=== PATIENT | female | born 1940 | race Caucasian/White ===

== ENCOUNTER 2019-01-02 13:37 | Inpatient (IN) ==
--- NOTE | 2019-01-02 13:58 | Emergency Department Note ---
Weakness HPI - General Chief complaint: Weakness Stated complaint: Shoulder pain, Change in LOC Time Seen by Provider: 01/02/19 13:57 Source: patient, family Mode of arrival: ambulatory - History of Present Illness HPI Narrative: 78-year-old female presenting with a chief complaint of some concern by her for altered mental status. Patient seen recently and evaluated however was concerned that she may be having a stroke or something like that and thus presented for additional evaluation. Patient not really reporting significant problems aside from pain to the back. - Related Data Previous Rx's Medication Instructions Recorded Cyclobenzaprine [Flexeril] 10 mg PO TID #20 tab 01/01/19 Allergies Allergy/AdvReac Type Severity Reaction Status Date / Time prednisolone Allergy Intermediate Hypertensio Verified 01/02/19 13:46 n Sulfa (Sulfonamide Allergy Intermediate Hives Verified 01/02/19 13:46 Antibiotics) Review of Systems All systems ED: reviewed and negative except as stated. Past Medical History - Past Medical History [facility] Narrative: All Active Problems Thoracic back pain (Acute) Muscle spasm (Acute) Medical history: Reports: no medical history - Social History smoking status: Never smoker Physical Exam Limitations: no limitations General appearance: lethargic, sleepy Head: atraumatic, normocephalic Eye: Absent: scleral icterus, conjunctival injection ENT: Present: normal oropharynx, mucous membranes moist Neck: Present: trachea midline. Absent: lymphadenopathy, thyromegaly Chest: Present: symmetric chest wall rise Respiratory: Present: normal lung sounds bilaterally. Absent: respiratory distress, wheezes, stridor, accessory muscle use, prolonged expiratory phase Cardiovascular: Present: regular rate, normal rhythm. Absent: systolic murmur, diastolic murmur Abdominal: Present: soft. Absent: distention, tenderness, guarding, rebound, rigidity, organomegaly, mass Extremities: Absent: pedal edema, pretibial edema, calf tenderness Back: Absent: CVA tenderness (R), CVA tenderness (L), spinous process tenderness Neurological: Present: alert, oriented X3 Psychiatric: Present: normal affect, normal mood Skin: Present: warm, dry Course Course Narrative: The differential diagnosis in this case include stroke, ICH, subarachnoid bleeding, spinal cord injury, GBS, tick paralysis, myasthenia gravis, botulism, alcohol myopathy, myositis, electrolyte disorders, thyroid disease, sepsis, ACS, carbon monoxide poisoning, dehydration, anemia, presyncope, as well as medication reaction. A combination of history/physical exam/labs were used to discern the most likely etiology. Patient noted to be hypertensive in the emergency department with systolic blood pressure around 200 however patient refused treatment for this issue. Patient was offered labetalol instructed in its value and how long it would be useful for her symptoms and issues and she declined. She was significant improvement in her mental status after IV fluids was provided. Secondary to elevated white blood cell count, abnormal urinalysis and altered mental status my medical opinion is patient has sepsis with urinary source, hypertensive emergency is also in the differential as her blood pressure is elevated and her mental status is altered however after the fluids her blood pressure was still elevated and her mental status was clearing so I am leaning towards sepsis with urinary source. Discussed the case with hospital ist Dr. Addison and the consensus medical opinion is to admit the patient. Vital Signs Temperature 98.0 F 01/02/19 13:41 Pulse Rate 76 01/02/19 13:41 Respiratory Rate 30 H 01/02/19 13:41 Blood Pressure 208/87 01/02/19 13:41 Pulse Oximetry (%) 96 01/02/19 13:41 Temperature 98.0 F 01/02/19 13:46 Pulse Rate 76 01/02/19 18:02 Respiratory Rate 19 01/02/19 17:32 Blood Pressure 136/54 01/02/19 18:02 Pulse Oximetry (%) 93 01/02/19 17:47 Weakness - Lab Data Result diagrams: 01/02/19 14:15 01/02/19 14:15 Lab Results 01/02/19 01/02/19 01/02/19 Range/Units 14:15 14:15 14:15 WBC 20.2 H (4.5-11.0) K/mcL RBC 4.94 (4.00-5.20) M/mcL Hgb 14.1 (12.0-15.0) g/dL Hct 42.4 (36.0-48.0) % MCV 85.7 (80.0-100.0) fL MCH 28.5 (26.0-34.0) pg MCHC 33.3 (31.0-36.0) g/dL RDW 13.2 (11.5-14.5) % Plt Count 201 (140-440) K/mcL MPV 9.8 (7.4-10.4) fL Gran % 89.0 H (38.0-78.0) % Lymph % (Auto) 3.2 L (15.5-49.0) % [place] % (Auto) 7.8 (1.0-12.0) % Eos % (Auto) 0 (0.0-7.0) % Baso % (Auto) 0 (0.0-2.0) % Gran # 18.0 H (1.8-8.0) K/mcL Lymph # (Auto) 0.6 L (1.5-4.8) K/mcL [place] # (Auto) 1.6 H (0.1-0.9) K/mcL Eos # (Auto) 0 (0.0-0.7) K/mcL Baso # (Auto) 0 (0.0-0.3) K/mcL Differential Comment Sodium 131 L (133-145) mmol/L Potassium 4.0 (3.3-5.1) mmol/L Chloride 97 (96-108) mmol/L Carbon Dioxide 22 (22-30) mmol/L Anion Gap 12.0 (8-16) BUN 12 (8-23) mg/dl Creatinine 0.8 (0.6-1.1) mg/dl GFR Calculation 72 Glucose 146 H (70-105) mg/dL Calcium 9.3 (8.6-10.4) mg/dl Total Bilirubin 0.7 (0.0-1.0) mg/dL AST 20 (0-37) U/l ALT 15 (0-40) U/l Alkaline Phosphatase 82 (39-117) U/L Troponin T < 0.01 (0-0.03) ng/ml Total Protein 8.7 H (5.9-8.4) gm/dL Albumin 3.8 (3.2-5.2) gm/dL Globulin 4.9 H (2.2-3.7) gm/dL Albumin/Globulin Ratio 0.8 L (1.0-2.3) Urine Color Urine Appearance Urine pH (5.0-9.0) Ur Specific [place] (1.000-1.035) Urine Protein (NEG) mg/dL Urine Glucose (UA) (NEG) mg/dL Urine Ketones (NEG) mg/dL Urine Occult Blood (<0.03) mg/dL Urine Nitrate (NEG) Urine Bilirubin (NEG) mg/dL Urine Urobilinogen (NEG) mg/dL Ur Leukocyte Esterase (NEG) /uL Urine RBC (0-1) /hpf Urine WBC (0-4) /hpf Ur Squamous Epith Cells (0-4) /hpf Ur Transition Epith Cell (0-2) /hpf Urine Bacteria (0) /hpf Hyaline Casts (0-2) /lpf Urine Mucus (0) /hpf Ur Culture Indicated? 01/02/19 Range/Units 16:40 WBC (4.5-11.0) K/mcL RBC (4.00-5.20) M/mcL Hgb (12.0-15.0) g/dL Hct (36.0-48.0) % MCV (80.0-100.0) fL MCH (26.0-34.0) pg MCHC (31.0-36.0) g/dL RDW (11.5-14.5) % Plt Count (140-440) K/mcL MPV (7.4-10.4) fL Gran % (38.0-78.0) % Lymph % (Auto) (15.5-49.0) % [place] % (Auto) (1.0-12.0) % Eos % (Auto) (0.0-7.0) % Baso % (Auto) (0.0-2.0) % Gran # (1.8-8.0) K/mcL Lymph # (Auto) (1.5-4.8) K/mcL [place] # (Auto) (0.1-0.9) K/mcL Eos # (Auto) (0.0-0.7) K/mcL Baso # (Auto) (0.0-0.3) K/mcL Differential Comment Sodium (133-145) mmol/L Potassium (3.3-5.1) mmol/L Chloride (96-108) mmol/L Carbon Dioxide (22-30) mmol/L Anion Gap (8-16) BUN (8-23) mg/dl Creatinine (0.6-1.1) mg/dl GFR Calculation Glucose (70-105) mg/dL Calcium (8.6-10.4) mg/dl Total Bilirubin (0.0-1.0) mg/dL AST (0-37) U/l ALT (0-40) U/l Alkaline Phosphatase (39-117) U/L Troponin T (0-0.03) ng/ml Total Protein (5.9-8.4) gm/dL Albumin (3.2-5.2) gm/dL Globulin (2.2-3.7) gm/dL Albumin/Globulin Ratio (1.0-2.3) Urine Color Yellow Urine Appearance Clear Urine pH 6.0 (5.0-9.0) Ur Specific [place] 1.017 (1.000-1.035) Urine Protein 100 A (NEG) mg/dL Urine Glucose (UA) Negative (NEG) mg/dL Urine Ketones 5/tr A (NEG) mg/dL Urine Occult Blood 0.03 A (<0.03) mg/dL Urine Nitrate Neg (NEG) Urine Bilirubin Neg (NEG) mg/dL Urine Urobilinogen Neg (NEG) mg/dL Ur Leukocyte Esterase 75 A (NEG) /uL Urine RBC 3 H (0-1) /hpf Urine WBC 53 H (0-4) /hpf Ur Squamous Epith Cells < 1 (0-4) /hpf Ur Transition Epith Cell < 1 (0-2) /hpf Urine Bacteria Few A (0) /hpf Hyaline Casts 2 (0-2) /lpf Urine Mucus Few (0) /hpf Ur Culture Indicated? Yes - EKG Data EKG attestation: Yes I reviewed and interpreted this EKG. EKG shows normal: sinus rhythm Rate: normal Rhythm: NSR [place]/QRS: LBBB P waves: normal ST segment elevation in: None ST segment depression in: None Q waves: None QTc: normal Interpretation: normal EKG Critical Care Time Critical Care Time: Yes Total Critical Care Time: 55 (elevated BP and sepsis) Attestation: This critical care time was direct patient care exclusive of other procedures. Disposition Pt seen by [facility]/PA only: No Clinical Impression: Hypertensive emergency Sepsis Qualifiers: Sepsis type: Escherichia coli Sepsis acute organ dysfunction status: without acute organ dysfunction Qualified Code(s): A41.51 - Sepsis due to Escherichia coli [E. coli] Disposition: Xfer As Inpt ([facility]) Condition: Fair Referrals: No,PCP [Primary Care Provider] -
[2019-01-02] MEDS ORDERED: LABETALOL 5 MG/ML ML IV ONE (14:19)
[2019-01-02 15:00] LABS: Basophils # (Auto) 0 K/mcL (0.0-0.3); Basophils % (Auto) 0 % (0.0-2.0); Eosinophils # (Auto) 0 K/mcL (0.0-0.7); Eosinophils % (Auto) 0 % (0.0-7.0); Hematocrit 42.4 % (36.0-48.0); Hemoglobin 14.1 g/dL (12.0-15.0); Lymphocytes # (Auto) 0.6 K/mcL (1.5-4.8); Lymphocytes % (Auto) 3.2 % (15.5-49.0); Mean Cell Volume 85.7 fL (80.0-100.0); Mean Corpuscular HGB Conc 33.3 g/dL (31.0-36.0); Mean Platelet Volume 9.8 fL (7.4-10.4); Monocytes # (Auto) 1.6 K/mcL (0.1-0.9); Monocytes % (Auto) 7.8 % (1.0-12.0); Platelet Count 201 K/mcL (140-440); RBC 4.94 M/mcL (4.00-5.20); Red Cell Distribution Width 13.2 % (11.5-14.5); WBC 20.2 K/mcL (4.5-11.0)
--- NOTE | 2019-01-02 15:08 | XRay Report ---
HISTORY: Chest pain and dyspnea FINDINGS: The heart is mildly enlarged. There are prominent increased interstitial lung markings bilaterally, left greater than right. This is most apparent in the perihilar region on the left side. The lung volumes are normal. There is no consolidating infiltrate, mass or pleural effusion. Right humeral head is deformed due to an old healed fracture. No prior study is available for comparison. IMPRESSION: Cardiomegaly Generalized interstitial lung disease. This could be due to congestive heart failure or a generalized nonspecific inflammatory reaction Interpreted and Authenticated by: Jameel Glynn 01/02/19
[2019-01-02] MEDS ORDERED: 0.9 % SODIUM CHLORIDE 2,000 ML IV ONE (15:25)
[2019-01-02] MEDS ORDERED: cefTRIAXone 1 GM VIAL IV ONE ×2 (15:28→18:12)
[2019-01-02 15:40] LABS: ALT/SGPT 15 U/l (0-40); AST/SGOT 20 U/l (0-37); Albumin 3.8 gm/dL (3.2-5.2); Albumin/Globulin Ratio 0.8 (1.0-2.3); Alkaline Phosphatase 82 U/L (39-117); Bilirubin,Total 0.7 mg/dL (0.0-1.0); Blood Urea Nitrogen 12 mg/dl (8-23); Calcium 9.3 mg/dl (8.6-10.4); Carbon Dioxide 22 mmol/L (22-30); Chloride 97 mmol/L (96-108); Globulin 4.9 gm/dL (2.2-3.7); Glomerular Filtration Rate 72; Glucose 146 mg/dL (70-105)
--- NOTE | 2019-01-02 16:12 | Cat Scan Report ---
Reason: Stroke symptoms TECHNIQUE: The brain was imaged without contrast at 2.5 mm intervals. Radiation exposure was limited using dose reduction technology. FINDINGS: There are a few small lacunar infarcts with encephalomalacia. One is located inferiorly in the left putamen and measures approximately 3 x 6 mm. There is another in the mercedes radiata adjacent to the head of the left caudate nucleus which measures approximately 3 x 4 mm. To the left of midline in the superior cerebellar vermis there is an infarct which measures 6 mm. No acute infarct is detected. There is no hemorrhage, edema or mass effect. Patient has mild generalized cerebral atrophy. The ventricles are normal in size. No abnormal extra-axial fluid collection is present. No prior studies available for comparison. 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 No evidence of an acute infarct Dr. Vigil was called with the results Interpreted and Authenticated by: Jameel Glynn 01/02/19
[2019-01-02 18:01] LABS: Appearance,Urine CLEAR; Bacteria,Urine FEW /hpf (0); Bilirubin,Urine NEG (NEG); Color,Urine YELLOW; Culture Indicated,Urine YES; Glucose,Urine (UA) NEGATIVE (NEG); Ketones,Urine 5/TR mg/dL (NEG); Leukocyte Esterase,Urine 75 /uL (NEG); Mucus,Urine FEW /hpf (0); Nitrate,Urine NEG (NEG); Protein,Urine 100 mg/dL (NEG); Specific Gravity,Urine 1.017 (1.000-1.035); Urine Blood 0.03 mg/dL (<0.03); Urine Hyaline Cast 2 /lpf (0-2); Urine RBC 3 /hpf (0-1); Urine Squamous Epithelial Cell < 1 /hpf (0-4); Urine Transitional Epi Cells < 1 /hpf (0-2); Urine WBC 53 /hpf (0-4); Urobilinogen,Urine NEG (NEG)
--- NOTE | 2019-01-02 19:18 | Internal Med History&Physical ---
Medical - H&P: [facility] Patient information: Note initiated : 01/02/19 at 7:16 pm Service Date, if different from initiated Date: [] Patient: Fiorella Leon a 78 y/o F admitted on for Shoulder pain, Change in LOC. Chief Complaint: Confusion History of present illness: Ms. Leon is a 78 year old F who presents to the emergency department brought in by her with concerns of confusion. Apparently she had not been doing well for the last few days, however was just seen here yesterday with main complaint of left shoulder pain and was diagnosed with muscle spasm. She was prescribed Flexeril, it is unclear if she is taking many of those tablets. She reports back to the ED with her quite confused. Apparently she did not follow much conversation and could not give much history upon arrival though did improve after fluids. Evaluation in the emergency department shows evidence of urinary tract infection with sepsis, white count of 20 and encephalopathy. Location: Systemic; timing: Onset 1 to 2 days ago; severity: Moderate; associated symptoms: As in review of systems. Patient felt feverish last evening, she felt chilled but did not have shaking chills. She occasionally has a headache, but none currently. No neck pain or stiffness. She had some mild nausea this morning but no emesis. She is had no abdominal pain. She has had no diarrhea. She has had some dysuria. In the emergency department, the patient is also noted to be extremely hypertensive with systolic blood pressures in the 200s and diastolics in the 110's. Patient was trying to describe that she had had a hypertensive reaction to a treatment for her glaucoma but is still little confused and cannot really provide details. According to her , her blood pressure may have been high for a while but she has never been treated for hypertension. She is now being admitted for treatment of sepsis from urinary source. All systems: reviewed and no additional remarkable complaints except as stated Medical - H&P: PMH Medical history: Glaucoma Eczema History of elevated blood pressure Surgical history: Shoulder surgery Pertinent family history: Mother had CAD, an uncle of [place] Social history: Lives with her ; does not smoke or drink alcohol. Does not have a regular physician, except for eye appointments. Medical - H&P: Meds Home Medications Medication Instructions Recorded Confirmed Type Cyclobenzaprine [Flexeril] 10 mg PO TID #20 tab 01/01/19 Rx Latanoprost/Pf [Latanoprost 0.005% 1 gtt OU HS 01/03/19 01/03/19 History Eye Drop] RX: Ketorolac Tromethamine 1 gtt OU BID 01/03/19 01/03/19 History Timolol 0.5% Ophth Drops [Timoptic 1 gtt OU BID 01/03/19 01/03/19 History 0.5% Ophth Drops] Allergies Allergy/AdvReac Type Severity Reaction Status Date / Time prednisolone Allergy Intermediate Hypertensio Verified 01/02/19 13:46 n Sulfa (Sulfonamide Allergy Intermediate Hives Verified 01/02/19 13:46 Antibiotics) Medical - H&P: Exam - Constitutional Vitals: Temp Pulse Resp BP Pulse Ox 98.0 F 93 H 18 218/181 96 01/02/19 13:46 01/02/19 18:32 01/02/19 18:32 01/02/19 19:01 01/02/19 18:32 Exam: GENERAL: Alert, mildly disoriented, in no acute distress. HEENT: Atraumatic. PERRL at 3 mm, conjunctiva clear, no scleral icterus. Hearing grossly intact. Oropharynx with moist mucous membranes, no lip or gum lesions, no pharyngeal erythema or exudate. Tongue midline. NECK: Supple without meningismus, no thyromegaly RESPIRATORY: Breath sounds clear bilaterally without wheezes or rhonchi. Respiratory effort is unlabored. CARDIOVASCULAR: Regular rate and rhythm, no murmur gallop or rub. No peripheral edema. Carotid pulses 2+ without bruit. GI: Abdomen soft, nontender, no guarding or rebound. Bowel sounds are present. No hepatosplenomegaly. MUSCULOSKELETAL: No joint erythema or swelling, normal range of motion in all extremities. SKIN: Warm, dry. Scattered dry patches with excoriations on the lower extremities. Skin turgor normal. NEUROLOGIC: Cranial nerves II through XII grossly intact. Muscle mass normal. There is mild generalized weakness. Sensation intact to light touch bila terally. Deep tendon reflexes 2+ at the biceps and patella. PSYCHIATRIC: Alert, oriented to person, place and situation, recall is slow at times. Medical - H&P: Reslt - Labs CBC & Chem 7: 01/03/19 04:09 01/03/19 04:09 Labs: Short CBC 01/02/19 Range/Units 14:15 WBC 20.2 H (4.5-11.0) K/mcL Hgb 14.1 (12.0-15.0) g/dL Hct 42.4 (36.0-48.0) % Plt Count 201 (140-440) K/mcL BMP 01/02/19 14:15 Sodium 131 L Potassium 4.0 Chloride 97 Carbon Dioxide 22 BUN 12 Creatinine 0.8 Glucose 146 H Calcium 9.3 Cardiac Enzymes 01/02/19 Range/Units 14:15 Troponin T < 0.01 (0-0.03) ng/ml Liver Function 01/02/19 Range/Units 14:15 Total Bilirubin 0.7 (0.0-1.0) mg/dL AST 20 (0-37) U/l ALT 15 (0-40) U/l Alkaline Phosphatase 82 (39-117) U/L Albumin 3.8 (3.2-5.2) gm/dL Urine 01/02/19 Range/Units 16:40 Urine Color Yellow Urine Appearance Clear Urine pH 6.0 (5.0-9.0) Ur Specific [place] 1.017 (1.000-1.035) Urine Protein 100 A (NEG) mg/dL Urine Glucose (UA) Negative (NEG) mg/dL - Imaging and Cardiology CT scan - head Additional comments: IMPRESSION: 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 No evidence of an acute infarct Chest x-ray Status: image reviewed by me Additional comments: MPRESSION: Cardiomegaly Generalized interstitial lung disease. This could be due to congestive heart failure or a generalized nonspecific inflammatory reaction Medical - H&P: A/P (1) Sepsis Current visit: Yes Status: Acute (2) Acute cystitis Current visit: Yes Status: Acute (3) Hypertensive emergency Current visit: Yes Status: Acute - Narrative A/P Narrative: 78-year-old female presents with confusion, found to have sepsis from urinary source. Also with markedly elevated blood pressures. Sepsis, acute cystitis. Patient with significant bacteriuria and pyuria. Suspect this plays a large role in her altered mental status. Lactate is normal, this is not severe sepsis. Plan: -Inpatient admission -Telemetry due to blood pressure -She is received 1 L of fluids, will avoid too much sodium overload given her blood pressure, and only provide maintenance fluids -Continue ceftriaxone which was started in the ED -Follow-up cultures. Encephalopathy. Patient presents with confusion. This most likely is a toxic/metabolic encephalopathy from sepsis. It appears she has had long- standing elevated blood pressure, and discussing with her , though hypertensive emergency and hypertensive encephalopathy needs to be considered. Plan: Treat sepsis, control blood pressure, follow mental status. Hypertensive urgency. Significantly elevated blood pressures in the ED. No real data on old blood pressure readings readily available. As noted above, suspect this may be more chronic, so will not be too aggressive in initial lowering of blood pressure with an initial target of systolic of about 180. Plan: Begin amlodipine, first dose tonight. As needed hydralazine and labetalol for systolics greater than 180. Adjust control of blood pressure goals over the next 24 to 48 hours. Will likely need to establish care for ongoing treatment of hypertension. Would likely benefit from echocardiogram as she does have cardiomegaly. This may not be available for the next few days given the holiday weekend. Prophylaxis: Enoxaparin Code Status: DNR
[2019-01-02] MEDS ORDERED: LABETALOL 5 MG/ML ML IV PRN (21:12)
[2019-01-02] MEDS ORDERED: amLODIPine 5 MG TABLET PO ONE (21:12)
[2019-01-02] MEDS ORDERED: BISACODYL 5 MG TABLET PO PRN (21:12)
[2019-01-02] MEDS ORDERED: MAGNESIUM HYDROXIDE 30 ML ORAL.SUSP PO PRN (21:12)
[2019-01-02] MEDS ORDERED: 0.9 % SODIUM CHLORIDE 1,000 ML IV SCH (21:12)
[2019-01-02] MEDS ORDERED: cefTRIAXone 1 GM in DEXTROSE 5% IN WATER 50 ML IV SCH (21:12)
[2019-01-02] MEDS ORDERED: ONDANSETRON 4 MG/2 ML VIAL IV PRN (21:12)
[2019-01-02] MEDS: 0.9 % SODIUM CHLORIDE 10 ML SYRINGE IV SCH (22:35)
[2019-01-02] MEDS: hydrALAZINE 20 MG/ML VIAL IV PRN (23:19)
[2019-01-03] MEDS: ACETAMINOPHEN 325 MG TABLET PO PRN ×3 (00:50→20:03)
[2019-01-03] MEDS: 0.9 % SODIUM CHLORIDE 10 ML SYRINGE IV SCH ×3 (05:36→20:02)
[2019-01-03 06:06] LABS: Basophils # (Auto) 0 K/mcL (0.0-0.3); Basophils % (Auto) 0.1 % (0.0-2.0); Eosinophils # (Auto) 0 K/mcL (0.0-0.7); Eosinophils % (Auto) 0 % (0.0-7.0); Granulocytes % (Auto) 82.5 % (38.0-78.0); Hemoglobin 13.9 g/dL (12.0-15.0); Lymphocytes # (Auto) 1.1 K/mcL (1.5-4.8); Lymphocytes % (Auto) 5.9 % (15.5-49.0); Mean Cell Volume 88.6 fL (80.0-100.0); Mean Corpuscular HGB Conc 32.4 g/dL (31.0-36.0); Mean Platelet Volume 9.7 fL (7.4-10.4); Monocytes # (Auto) 2.2 K/mcL (0.1-0.9); Monocytes % (Auto) 11.5 % (1.0-12.0); Platelet Count 157 K/mcL (140-440); RBC 4.85 M/mcL (4.00-5.20); Red Cell Distribution Width 13.4 % (11.5-14.5); WBC 19.5 K/mcL (4.5-11.0)
[2019-01-03 06:28] LABS: Blood Urea Nitrogen 9 mg/dl (8-23); Calcium 8.7 mg/dl (8.6-10.4); Carbon Dioxide 18 mmol/L (22-30); Chloride 99 mmol/L (96-108); Glomerular Filtration Rate 84; Glucose 110 mg/dL (70-105)
[2019-01-03] MEDS ORDERED: VANCOMYCIN PER PHARMACY IV SCH (07:37)
[2019-01-03] MEDS: ENOXAPARIN 40 MG/0.4 ML SYRINGE SQ SCH (08:48)
[2019-01-03] MEDS: cefTRIAXone 1 GM VIAL IV SCH (08:48)
[2019-01-03] MEDS: PANTOPRAZOLE 40 MG TABLET PO SCH (08:49)
[2019-01-03] MEDS: VANCOMYCIN 1,500 MG in 0.9 % SODIUM CHLORIDE 500 ML IV SCH (08:49)
[2019-01-03] MEDS: amLODIPine 5 MG TABLET PO SCH (08:49)
[2019-01-03] MEDS: 0.9 % SODIUM CHLORIDE 1,000 ML IV SCH ×2 (10:18→20:00)
[2019-01-03] MEDS: hydrALAZINE 20 MG/ML VIAL IV PRN (12:06)
[2019-01-03] MEDS: KETOROLAC TROMETHAMINE 3 ML DROPS OP SCH (20:01)
[2019-01-03] MEDS: TIMOLOL 0.5% OPHTH DROPS BOTTLE 5ML OU SCH (20:01)
--- NOTE | 2019-01-03 20:05 | Internal Med Progress Note ---
Medical - PN: Subj Patient information: Note initiated : 01/03/19 at 8:03 pm Service Date, if different from initiated Date: [] Patient: Fiorella Leon a 78 y/o F admitted on 01/02/19 for Shoulder pain, Change in LOC. Chief Complaint: Follow-up sepsis Interval history: Ms. Leon is a 78 year old F who presents to the emergency department brought in by her with concerns of confusion. Apparently she had not been doing well for the last few days, however was just seen here yesterday with main complaint of left shoulder pain and was diagnosed with muscle spasm. She was prescribed Flexeril, it is unclear if she is taking many of those tablets. She reports back to the ED with her quite confused. Apparently she did not follow much conversation and could not give much history upon arrival though did improve after fluids. Evaluation in the emergency department shows evidence of urinary tract infection with sepsis, white count of 20 and encephalopathy. Location: Systemic; timing: Onset 1 to 2 days ago; severity: Moderate; associated symptoms: As in review of systems. Patient felt feverish last evening, she felt chilled but did not have shaking chills. She occasionally has a headache, but none currently. No neck pain or stiffness. She had some mild nausea this morning but no emesis. She is had no abdominal pain. She has had no diarrhea. She has had some dysuria. In the emergency department, the patient is also noted to be extremely hypertensive with systolic blood pressures in the 200s and diastolics in the 110's. Patient was trying to describe that she had had a hypertensive reaction to a treatment for her glaucoma but is still little confused and cannot really provide details. According to her , her blood pressure may have been high for a while but she has never been treated for hypertension. She is now being admitted for treatment of sepsis from urinary source. 01/03-seen at bedside with her and nursing. She is less confused this afternoon and is starting to feel better. Blood cultures are positive for gram- positive cocci in both sets. Urine culture is without growth. Vancomycin added to regimen. Patient really had not been having fevers chills. She has been feeling poorly for a few days prior to presenting to the hospital however. She does have some wounds in the lower legs where she has scratched at areas of eczema. - Constitutional Vitals: Vital Signs Temp Pulse Resp BP Pulse Ox 99.2 F H 69 16 170/60 96 01/03/19 16:43 01/03/19 16:43 01/03/19 16:43 01/03/19 16:43 01/03/19 16:43 Period Temp Pulse Resp BP Sys/Mccullough Pulse Ox Last 24 Hr 97.7 F-100.4 F 69-92 16-22 133-221/48-161 91-98 Intake and Output 01/03/19 01/03/19 01/03/19 05:59 13:59 21:59 Intake Total 1980 1240 Output Total 450 650 Balance -450 1331 1240 Weight 177 lb 14.4 oz Patient Weight 01/04/19 05:59 Weight 177 lb 14.4 oz Intake & Output: Intake & Output 01/03/19 01/03/19 01/03/19 05:59 13:59 21:59 Intake Total 1980 1240 Output Total 450 650 Balance -450 1331 1240 Weight 177 lb 14.4 oz Intake: IV 1441 1000 Sodium Chloride 0.9% 1,000 ml @ 941 1000 125 mls/hr IV .Q8H [facility]KA Rx#: [id number] Vancomycin 1,500 mg In Sodium 500 Chloride 0.9% 500 ml @ 333.3 mls/hr IV Q24H [facility] Rx#: [id number] Oral 540 240 Output: Void Amount 450 650 Other: Meal Breakfast Percent of Meal Consumed 50% Urine Appearance Sediment Urine Color Straw Urine Odor Strong Exam: General: Sitting up in chair, calm, cooperative Chest: Clear Cardiovascular: Regular rate and rhythm with 1/6 systolic murmur at the upper right sternal border. Abdomen: Soft nontender Extremities: No embolic lesions in the hands Neuro: Alert, oriented person, place and situation today; remains generally weak Medical - PN: Obj Da - Labs CBC & Chem 7: 01/03/19 04:09 01/03/19 04:09 Labs: Abnormal Lab Results 01/03/19 01/03/19 01/02/19 04:09 04:09 16:40 WBC 19.5 H Gran % 82.5 H Lymph % (Auto) 5.9 L Gran # 16.1 H Lymph # (Auto) 1.1 L [place] # (Auto) 2.2 H Sodium Carbon Dioxide 18 L Glucose 110 H Total Protein Globulin Albumin/Globulin Ratio Urine Protein 100 A Urine Ketones 5/tr A Urine Occult Blood 0.03 A Ur Leukocyte Esterase 75 A Urine RBC 3 H Urine WBC 53 H Urine Bacteria Few A 01/02/19 01/02/19 14:15 14:15 WBC 20.2 H Gran % 89.0 H Lymph % (Auto) 3.2 L Gran # 18.0 H Lymph # (Auto) 0.6 L [place] # (Auto) 1.6 H Sodium 131 L Carbon Dioxide Glucose 146 H Total Protein 8.7 H Globulin 4.9 H Albumin/Globulin Ratio 0.8 L Urine Protein Urine Ketones Urine Occult Blood Ur Leukocyte Esterase Urine RBC Urine WBC Urine Bacteria Microbiology 01/02/19 15:23 Blood Culture - Preliminary Blood Staphylococcus aureus 01/02/19 17:00 Blood Culture - Preliminary Blood Gram positive cocci 01/02/19 16:40 Urine Culture - Preliminary Urine - Clean Void Mid-Stream Meds: Medications Acetaminophen (Tylenol) 650 mg PO Q6HP PRN PRN Reason: PAIN/FEVER > 101 Last Admin: 01/03/19 12:07 Dose: 650 mg Documented by: Amlodipine Besylate (Norvasc) 5 mg PO DAILY [facility] Last Admin: 01/03/19 08:49 Dose: 5 mg Documented by: Bisacodyl (Dulcolax) 10 mg PO DAILYP PRN PRN Reason: Constipation Ceftriaxone Sodium (Rocephin) 1 gm IV Q24H [facility] Last Admin: 01/03/19 08:48 Dose: 1 gm Documented by: Enoxaparin Sodium (Lovenox) 40 mg SQ DAILY [facility] Last Admin: 01/03/19 08:48 Dose: 40 mg Documented by: Hydralazine HCl (Apresoline) 10 mg IV Q4-6HP PRN PRN Reason: Hypertension Last Admin: 01/03/19 12:06 Dose: 10 mg Documented by: Vancomycin HCl 1,500 mg/ (Sodium Chloride) 500 mls @ 333.3 mls/hr IV Q24H [facility] Last Infusion: 01/03/19 12:07 Dose: Infused Documented by: Sodium Chloride (Sodium Chloride 0.9%) 1,000 mls @ 125 mls/hr IV .Q8H [facility] Last Admin: 01/03/19 20:00 Dose: 125 mls/hr Documented by: Ketorolac Tromethamine (Ketorolac Tromethamine) 0 ml OP BID [facility] Last Admin: 01/03/19 20:01 Dose: 3 ml Documented by: Labetalol HCl (Trandate) 10 mg IV Q4H PRN PRN Reason: Hypertension Latanoprost (Xalatan Ophth Drops) 1 gtt OU HS [facility] Last Admin: 01/03/19 20:02 Dose: 1 gtt Documented by: Magnesium Hydroxide (Milk Of Magnesia) 30 ml PO DAILYP PRN PRN Reason: Constipation Ondansetron HCl (Zofran) 4 mg IV Q4HP PRN PRN Reason: Nausea And Vomiting Pantoprazole Sodium (Protonix) 40 mg PO QAMAC [facility] Last Admin: 01/03/19 08:49 Dose: 40 mg Documented by: Sodium Chloride (Saline Flush) 10 ml IV Q8 [facility] Last Admin: 01/03/19 20:02 Dose: Not Given Documented by: Timolol Maleate (Timoptic 0.5% Ophth Drops) 1 gtt OU BID [facility] Last Admin: 01/03/19 20:01 Dose: 1 gtt Documented by: Vancomycin HCl (Vancomycin Per Pharmacy) 1 order IV UD [facility]; Protocol Medical - PN: A/P (1) Sepsis Status: Acute Current Visit: Yes (2) Acute cystitis Status: Acute Current Visit: Yes (3) Hypertensive emergency Status: Acute Current Visit: Yes - Narrative A/P Narrative: Sepsis. Appears now that sepsis is due to gram-positive bacteremia. Possible source or lesions on her legs. Vancomycin is now been added to her regimen. Plan: Continue with vancomycin, continue ceftriaxone and follow-up final cultures. Will need echocardiogram when available. ID consult when identification of GPC's is available. Acute cystitis. Patient with significant bacteriuria and pyuria, however cultures without growth. Plan: Follow-up final culture Encephalopathy. Patient presents with confusion. This most likely is a tox ic/metabolic encephalopathy from sepsis and gram-positive bacteremia. Differential includes hypertensive emergency and encephalopathy, though suspect that is less likely as she appears to have had long-standing high blood pressure. Plan: Treat sepsis, control blood pressure, follow mental status, supportive care Hypertensive urgency. Significantly elevated blood pressures in the ED. No real data on old blood pressure readings readily available. Suspect this is chronic, so was not too aggressive in initial blood pressure lowering an initial target systolic of 180. Pressures are improved today. Plan: Continue amlodipine. Continue with as needed hydralazine and labetalol for systolics greater than 180. Will tighten control tomorrow if needed. Ultimately will need to establish primary care to follow her hypertension. Will need an echocardiogram for her gram-positive bacteremia. 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 Noted on CT presentation. Plan: Cardiovascular risk modification as above with blood pressure control. Prophylaxis: Enoxaparin Code Status: DNR
[2019-01-03] MEDS ORDERED: LATANOPROST OPHTH DROPS 2.5ML BOTTLE OU SCH (21:00)
[2019-01-04] MEDS: ACETAMINOPHEN 325 MG TABLET PO PRN ×3 (02:12→23:56)
[2019-01-04] MEDS: 0.9 % SODIUM CHLORIDE 1,000 ML IV SCH ×2 (02:42→09:48)
[2019-01-04] MEDS: 0.9 % SODIUM CHLORIDE 10 ML SYRINGE IV SCH ×3 (06:02→21:02)
[2019-01-04 06:03] LABS: Basophils # (Auto) 0 K/mcL (0.0-0.3); Basophils % (Auto) 0 % (0.0-2.0); Eosinophils # (Auto) 0 K/mcL (0.0-0.7); Eosinophils % (Auto) 0.2 % (0.0-7.0); Granulocytes % (Auto) 84.4 % (38.0-78.0); Hematocrit 37.5 % (36.0-48.0); Hemoglobin 12.3 g/dL (12.0-15.0); Lymphocytes # (Auto) 0.9 K/mcL (1.5-4.8); Lymphocytes % (Auto) 6.2 % (15.5-49.0); Mean Cell Volume 87.5 fL (80.0-100.0); Mean Corpuscular HGB Conc 32.8 g/dL (31.0-36.0); Mean Platelet Volume 10.3 fL (7.4-10.4); Monocytes # (Auto) 1.3 K/mcL (0.1-0.9); Monocytes % (Auto) 9.2 % (1.0-12.0); Platelet Count 171 K/mcL (140-440); RBC 4.28 M/mcL (4.00-5.20); Red Cell Distribution Width 13.7 % (11.5-14.5); WBC 14.7 K/mcL (4.5-11.0)
[2019-01-04 06:25] LABS: Blood Urea Nitrogen 8 mg/dl (8-23); Calcium 8.2 mg/dl (8.6-10.4); Carbon Dioxide 21 mmol/L (22-30); Chloride 106 mmol/L (96-108); Glomerular Filtration Rate 84; Glucose 112 mg/dL (70-105)
[2019-01-04] MEDS: PANTOPRAZOLE 40 MG TABLET PO SCH (06:56)
[2019-01-04] MEDS: ENOXAPARIN 40 MG/0.4 ML SYRINGE SQ SCH (08:16)
[2019-01-04] MEDS: amLODIPine 5 MG TABLET PO SCH (08:16)
[2019-01-04] MEDS: cefTRIAXone 1 GM VIAL IV SCH (08:17)
[2019-01-04] MEDS: hydrALAZINE 20 MG/ML VIAL IV PRN ×3 (08:17→23:57)
[2019-01-04] MEDS: VANCOMYCIN 1,500 MG in 0.9 % SODIUM CHLORIDE 500 ML IV SCH (08:17)
[2019-01-04] MEDS: TIMOLOL 0.5% OPHTH DROPS BOTTLE 5ML OU SCH ×2 (08:18→21:04)
[2019-01-04] MEDS: KETOROLAC TROMETHAMINE 3 ML DROPS OP SCH ×2 (08:18→21:04)
[2019-01-04] MEDS ORDERED: IPRATROPIUM/ALBUTEROL 3 ML AMPUL.NEB NEB PRN (09:43)
[2019-01-04] MEDS: traMADol 50 MG TABLET PO PRN ×2 (09:48→15:09)
[2019-01-04] MEDS ORDERED: amLODIPine 5 MG TABLET PO ONE (10:14)
--- NOTE | 2019-01-04 11:30 | Internal Med Progress Note ---
Medical - PN: Subj Patient information: Note initiated : 01/04/19 at 11:28 am Service Date, if different from initiated Date: [] Patient: Fiorella Leon a 78 y/o F admitted on 01/02/19 for Shoulder pain, Change in LOC. Chief Complaint: Follow-up sepsis Interval history: Ms. Leon is a 78 year old F who presents to the emergency department brought in by her with concerns of confusion. Apparently she had not been doing well for the last few days, however was just seen here yesterday with main complaint of left shoulder pain and was diagnosed with muscle spasm. She was prescribed Flexeril, it is unclear if she is taking many of those tablets. She reports back to the ED with her quite confused. Apparently she did not follow much conversation and could not give much history upon arrival though did improve after fluids. Evaluation in the emergency department shows evidence of urinary tract infection with sepsis, white count of 20 and encephalopathy. Location: Systemic; timing: Onset 1 to 2 days ago; severity: Moderate; associated symptoms: As in review of systems. Patient felt feverish last evening, she felt chilled but did not have shaking chills. She occasionally has a headache, but none currently. No neck pain or stiffness. She had some mild nausea this morning but no emesis. She is had no abdominal pain. She has had no diarrhea. She has had some dysuria. In the emergency department, the patient is also noted to be extremely hypertensive with systolic blood pressures in the 200s and diastolics in the 110's. Patient was trying to describe that she had had a hypertensive reaction to a treatment for her glaucoma but is still little confused and cannot really provide details. According to her , her blood pressure may have been high for a while but she has never been treated for hypertension. She is now being admitted for treatment of sepsis from urinary source. 01/03-seen at bedside with her and nursing. She is less confused this afternoon and is starting to feel better. Blood cultures are positive for gram- positive cocci in both sets. Urine culture is without growth. Vancomycin added to regimen. Patient really had not been having fevers chills. She has been feeling poorly for a few days prior to presenting to the hospital however. She does have some wounds in the lower legs where she has scratched at areas of eczema. 2continues to improve. Mentation seems back to normal. Did have episode of chest tightness this morning, she is noted similar episodes in the past. Occurred at rest. She had had systolic blood pressure in the 200 range, had received hydralazine the time of onset with blood pressure down to the 140s. Cultures have identified pansensitive Staphylococcus aureus. Discussed with infectious disease, echo is ordered, will also obtain CT of the chest as well as the left shoulder where she has been having some pain. - Constitutional Vitals: Vital Signs Temp Pulse Resp BP Pulse Ox 99.2 F H 75 18 205/79 97 01/04/19 07:21 01/04/19 10:05 01/04/19 10:05 01/04/19 07:21 01/04/19 10:07 Period Temp Pulse Resp BP Sys/Mccullough Pulse Ox Last 24 Hr 97.7 F-99.6 F 69-86 16-20 154-205/58-80 95-98 Intake and Output 01/03/19 01/04/19 01/04/19 21:59 05:59 13:59 Intake Total 1480 838 620 Output Total 941 108 6057 Balance 980 138 -380 Weight 181 lb 3.2 oz Intake & Output: Intake & Output 01/03/19 01/04/19 01/04/19 21:59 05:59 13:59 Intake Total 1480 838 620 Output Total 402 741 3044 Balance 980 138 -380 Weight 181 lb 3.2 oz Intake: IV 1000 838 500 Sodium Chloride 0.9% 1,000 ml @ 1000 838 125 mls/hr IV .Q8H [facility] Rx#: [id number] Vancomycin 1,500 mg In Sodium 500 Chloride 0.9% 500 ml @ 333.3 mls/hr IV Q24H [facility] Rx#: [id number] Oral 480 120 Output: Void Amount 033 240 7360 Other: Meal Dinner Breakfast Percent of Meal Consumed 25% 75% Feeding Ability Independent Independent Urine Appearance Clear Clear Urine Color Bright Yellow Dark Yellow Dark Yellow # Bowel Movements 1 Exam: General: Sitting in bed no acute distress, initially receiving nebulizer treatment Chest: Mildly diminished throughout, no crackles, no wheezes Cardiovascular: Regular with 2/6 systolic murmur at the upper right sternal border that does not radiate. Trace peripheral edema Abdomen: Soft, nontender Skin: No hand or feet lesions. 1 to 2 cm areas of dry, somewhat scaly lesions on the legs, across left foot lesion with more of a heaped and scaly appearance. Excoriations around all the lesions. Neuro: Alert, oriented person, place, situation, able to follow full train of thought. Medical - PN: Obj Da - Labs CBC & Chem 7: 01/04/19 04:06 01/04/19 04:06 Labs: Abnormal Lab Results 01/04/19 01/04/19 01/03/19 04:06 04:06 04:09 WBC 14.7 H Gran % 84.4 H Lymph % (Auto) 6.2 L Gran # 12.4 H Lymph # (Auto) 0.9 L [place] # (Auto) 1.3 H Sodium Carbon Dioxide 21 L 18 L Glucose 112 H 110 H Calcium 8.2 L Total Protein Globulin Albumin/Globulin Ratio Urine Protein Urine Ketones Urine Occult Blood Ur Leukocyte Esterase Urine RBC Urine WBC Urine Bacteria 01/03/19 01/02/19 01/02/19 04:09 16:40 14:15 WBC 19.5 H Gran % 82.5 H Lymph % (Auto) 5.9 L Gran # 16.1 H Lymph # (Auto) 1.1 L [place] # (Auto) 2.2 H Sodium 131 L Carbon Dioxide Glucose 146 H Calcium Total Protein 8.7 H Globulin 4.9 H Albumin/Globulin Ratio 0.8 L Urine Protein 100 A Urine Ketones 5/tr A Urine Occult Blood 0.03 A Ur Leukocyte Esterase 75 A Urine RBC 3 H Urine WBC 53 H Urine Bacteria Few A 01/02/19 14:15 WBC 20.2 H Gran % 89.0 H Lymph % (Auto) 3.2 L Gran # 18.0 H Lymph # (Auto) 0.6 L [place] # (Auto) 1.6 H Sodium Carbon Dioxide Glucose Calcium Total Protein Globulin Albumin/Globulin Ratio Urine Protein Urine Ketones Urine Occult Blood Ur Leukocyte Esterase Urine RBC Urine WBC Urine Bacteria Microbiology 01/02/19 15:23 Blood Culture - Final Blood Staphylococcus aureus 01/04/19 03:52 MRSA (PCR) - Final Nose 01/02/19 17:00 Blood Culture - Preliminary Blood Gram positive cocci 01/02/19 16:40 Urine Culture - Preliminary Urine - Clean Void Mid-Stream Meds: Medications Acetaminophen (Tylenol) 650 mg PO Q6HP PRN PRN Reason: PAIN/FEVER > 101 Last Admin: 01/04/19 06:56 Dose: 650 mg Documented by: Albuterol/Ipratropium (Duoneb) 3 ml NEB Q4HP PRN PRN Reason: Shortness Of Breath Or Wheezing Last Admin: 01/04/19 09:48 Dose: 3 ml Documented by: Amlodipine Besylate (Norvasc) 10 mg PO DAILY [facility] Bisacodyl (Dulcolax) 10 mg PO DAILYP PRN PRN Reason: Constipation Cefazolin Sodium (Ancef) 2 gm IV Q8H [facility]; Protocol Enoxaparin Sodium (Lovenox) 40 mg SQ DAILY [facility] Last Admin: 01/04/19 08:16 Dose: 40 mg Documented by: Hydralazine HCl (Apresoline) 10 mg IV Q4-6HP PRN PRN Reason: Hypertension Last Admin: 01/04/19 08:17 Dose: 10 mg Documented by: Sodium Chloride (Sodium Chloride 0.9%) 1,000 mls @ 125 mls/hr IV .Q8H [facility] Last Admin: 01/04/19 09:48 Dose: Not Given Documented by: Ketorolac Tromethamine (Ketorolac Tromethamine) 0 ml OP BID [facility] Last Admin: 01/04/19 08:18 Dose: 3 ml Documented by: Labetalol HCl (Trandate) 10 mg IV Q4H PRN PRN Reason: Hypertension Latanoprost (Xalatan Ophth Drops) 1 gtt OU HS [facility] Last Admin: 01/03/19 20:02 Dose: 1 gtt Documented by: Lisinopril (Zestril) 5 mg PO HS [facility] Magnesium Hydroxide (Milk Of Magnesia) 30 ml PO DAILYP PRN PRN Reason: Constipation Ondansetron HCl (Zofran) 4 mg IV Q4HP PRN PRN Reason: Nausea And Vomiting Pantoprazole Sodium (Protonix) 40 mg PO QAMAC [facility] Last Admin: 01/04/19 06:56 Dose: 40 mg Documented by: Sodium Chloride (Saline Flush) 10 ml IV Q8 [facility] Last Admin: 01/04/19 06:02 Dose: Not Given Documented by: Timolol Maleate (Timoptic 0.5% Ophth Drops) 1 gtt OU BID [facility] Last Admin: 01/04/19 08:18 Dose: 1 gtt Documented by: Tramadol HCl (Ultram) 50 mg PO Q4HP PRN PRN Reason: Pain Last Admin: 01/04/19 09:48 Dose: 50 mg Documented by: - EKG Data -: EKG Reviewed by Myself (Sinus rhythm with left bundle branch block) Medical - PN: A/P - Time Spent With Patient Total time spent is greater than 50% in coordination of care (as documented) at patient's floor/unit and/or counseling patient: Greater than 35 minutes (1) Staphylococcus aureus bacteremia with sepsis Status: Acute Current Visit: Yes (2) Sepsis Status: Acute Current Visit: Yes (3) Acute cystitis Status: Acute Current Visit: Yes (4) Hypertensive emergency Status: Acute Current Visit: Yes - Narrative A/P Narrative: Sepsis. Sepsis secondary to Staphylococcus aureus bacteremia. Suspected source is lesions on legs, though will evaluate for occult infection in the thorax as well as the left shoulder given her shoulder pain. MSSA on culture. Plan: Discontinue vancomycin and ceftriaxone, begin cefazolin 2 g IV every 8 hours. Staph decolonization protocol. Echocardiogram ordered. CT of the chest and left shoulder to evaluate for abscess/occult infection. Recheck surveillance blood cultures today. Acute cystitis. Patient with significant bacteriuria and pyuria, however cultur es without growth. Plan: Follow-up final culture Encephalopathy. Improving. Patient presented with confusion. This most likely is a toxic/metabolic encephalopathy from sepsis and Staphylococcus bacteremia. Differential includes hypertensive emergency and encephalopathy, though suspect that is less likely as she appears to have had long-standing high blood pressure. Plan: Continue to treat staph infection, control blood pressure, follow mental status, supportive care Hypertensive urgency. Significantly elevated blood pressures in the ED. No real data on old blood pressure readings readily available. Suspect this is chronic, so was not too aggressive in initial blood pressure lowering an initial target systolic of 180. Pressures were still elevated this morning, amlodipine have been started at admission, receiving as needed hydralazine. Plan: Increase amlodipine to 10 mg daily, add lisinopril at bedtime, continue with as needed hydralazine and labetalol for systolics greater than 160. Tighten goal systolic to 140. Ultimately will need to establish primary care to follow her hypertension. Will need an echocardiogram for her gram-positive bacteremia. 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 Noted on CT presentation. Plan: Cardiovascular risk modification as above with blood pressure control. Checking lipid panel. Prophylaxis: Enoxaparin Code Status: DNR
[2019-01-04 11:31] LABS: ALT/SGPT 17 U/l (0-40); AST/SGOT 22 U/l (0-37); Albumin 2.9 gm/dL (3.2-5.2); Alkaline Phosphatase 69 U/L (39-117); Bilirubin,Direct < 0.2 mg/dL (0.0-0.3); Bilirubin,Total 0.3 mg/dL (0.0-1.0); Globulin 4.2 gm/dL (2.2-3.7)
[2019-01-04] MEDS ORDERED: hydrALAZINE 20 MG/ML VIAL IV PRN (11:37)
[2019-01-04] MEDS ORDERED: LABETALOL 5 MG/ML ML IV PRN (11:37)
[2019-01-04] MEDS: ceFAZolin 1 GM VIAL IV SCH ×3 (11:43→21:02)
[2019-01-04] MEDS ORDERED: ONDANSETRON 4 MG/2 ML VIAL IV PRN (16:03)
[2019-01-04] MEDS ORDERED: MAGNESIUM HYDROXIDE 30 ML ORAL.SUSP PO PRN (16:03)
[2019-01-04] MEDS ORDERED: BISACODYL 5 MG TABLET PO PRN (16:03)
[2019-01-04] MEDS ORDERED: LISINOPRIL 5 MG TABLET PO SCH (21:00)
[2019-01-04] MEDS ORDERED: MUPIROCIN OINT 2% 22GM NARES SCH (21:00)
[2019-01-04] MEDS: LISINOPRIL 5 MG TABLET PO SCH (21:03)
[2019-01-04] MEDS: LATANOPROST OPHTH DROPS 2.5ML BOTTLE OU SCH (21:04)
[2019-01-04] MEDS: MUPIROCIN OINT 2% 22GM NARES SCH (21:06)
[2019-01-04] MEDS ORDERED: FUROSEMIDE 20 MG/2 ML VIAL IV ONE ×2 (23:49→23:52)
[2019-01-04] MEDS: IPRATROPIUM/ALBUTEROL 3 ML AMPUL.NEB NEB PRN (23:56)
[2019-01-05] MEDS: traMADol 50 MG TABLET PO PRN ×2 (00:08→17:06)
[2019-01-05] MEDS: ceFAZolin 1 GM VIAL IV SCH ×3 (05:31→21:16)
[2019-01-05] MEDS: 0.9 % SODIUM CHLORIDE 10 ML SYRINGE IV SCH ×3 (05:32→21:20)
[2019-01-05] MEDS ORDERED: amLODIPine 5 MG TABLET PO SCH (09:00)
--- NOTE | 2019-01-05 09:33 | Infectious Disease Consult ---
History of Present Illness Patient information: Note initiated : 01/05/19 at 9:27 am Service Date, if different from initiated Date: [] Patient: Fiorella Leon 78 y/o F admitted on 01/02/19 for Shoulder pain, Change in LOC. Chief Complaint: [] Consult date: 01/05/19 Requesting Physician: Tanya Addison Reason for Consult: MSSA bacteremia Chief complaint: my left shoulder hurts History of present illness: 78 year old lady with PMHx of: - recent glaucoma and cataract surgery - hypertension Pt was admitted to [facility] on 01/02 after being brought by her for concerns of confusion and left shoulder pain. She was seen in the ED a day before for left shoulder pain x 2 days and sent home with Flexeril tabs for diagnosis of muscle spasm. She was afebrile at that time but BP was 192/78. Pt also endorsed having some chills x 1 day, no documented fevers. She also has chronic skin lesions on her legs which she thought of as eczema. Denied any pus filled lesions, sick contacts. In ED: temp was 98F, HR 76, BP 208/87, satting well on room air. WBC was 20.2 with 89% PMNs, blood Cx x 2 sets sent, UA with few bacteria and trace leucocyte esterase. She was started on IV Ceftriaxone and admitted. Her CXR showed changes concerning for CHF. Pt's blood Cx came back +ve for Staph aureus with neg mecA gene on 01/03. IV Vanc was added per Dr Beverly, changed to IV cefazolin 2 gm q8 hrs after talking to me yesterday. Pt;s repeat blood Cx also sent yesterday. At time of visit, pt was awake, alert, and able to talk coherently without any impairment. She denied any fever, chills, n/v, diarrhea, joint pain. Endorsed severe left shoulder and left upper back pain. Denied any other symptoms. When asked about confusion at time of admission, she mentioned that it hit her very quickly rather than slowly developing over days. She feels back to normal. Review of Systems All systems PM: reviewed and no additional remarkable complaints except as stated Past History Past family history: CAD in mother Uncle of [place] Past social history: Lives with her in [place], [place] Medications and Allergies Home Medications Medication Instructions Recorded Confirmed Type Cyclobenzaprine [Flexeril] 10 mg PO TID #20 tab 01/01/19 01/03/19 Rx Ketorolac Tromethamine 1 gtt OU BID 01/03/19 01/03/19 History Latanoprost/Pf [Latanoprost 0.005% 1 gtt OU HS 01/03/19 01/03/19 History Eye Drop] Timolol 0.5% Ophth Drops [Timoptic 1 gtt OU BID 01/03/19 01/03/19 History 0.5% Ophth Drops] Allergies Allergy/AdvReac Type Severity Reaction Status Date / Time Sulfa (Sulfonamide Allergy Intermediate Hives Verified 01/02/19 13:46 Antibiotics) prednisolone AdvReac Mild Hypertensio Verified 01/04/19 14:03 n Physical Examination Vital signs: Temp Pulse Resp BP Pulse Ox 37.1 C 67 24 H 137/53 92 01/05/19 03:48 01/05/19 08:00 01/05/19 03:48 01/05/19 03:48 01/05/19 03:48 ao x 3, in nad no thrush ok dental hygiene, has lost majority of teeth except for lower incisors chest has b/l wheezing, decreased BS at bases s1 s2 normal, no murmur auscultated bs ++, nttd no leg edema has scattered erythematous skin lesion with scaling over the extensor aspect of both legs, no purulent lesions observed Results - Laboratory Findings CBC and BMP: 01/05/19 06:38 01/05/19 06:38 Abnormal lab findings: Abnormal Labs 01/02/19 01/02/19 01/02/19 14:15 14:15 16:40 WBC 20.2 H Gran % 89.0 H Lymph % (Auto) 3.2 L Gran # 18.0 H Lymph # (Auto) 0.6 L Bulloch # (Auto) 1.6 H Sodium 131 L Carbon Dioxide Glucose 146 H Calcium Total Protein 8.7 H Albumin Globulin 4.9 H Albumin/Globulin Ratio 0.8 L Urine Protein 100 A Urine Ketones 5/tr A Urine Occult Blood 0.03 A Ur Leukocyte Esterase 75 A Urine RBC 3 H Urine WBC 53 H Urine Bacteria Few A 01/03/19 01/03/19 01/04/19 04:09 04:09 04:06 WBC 19.5 H 14.7 H Gran % 82.5 H 84.4 H Lymph % (Auto) 5.9 L 6.2 L Gran # 16.1 H 12.4 H Lymph # (Auto) 1.1 L 0.9 L Bulloch # (Auto) 2.2 H 1.3 H Sodium Carbon Dioxide 18 L Glucose 110 H Calcium Total Protein Albumin Globulin Albumin/Globulin Ratio Urine Protein Urine Ketones Urine Occult Blood Ur Leukocyte Esterase Urine RBC Urine WBC Urine Bacteria 01/04/19 01/04/19 04:06 10:40 WBC Gran % Lymph % (Auto) Gran # Lymph # (Auto) Bulloch # (Auto) Sodium Carbon Dioxide 21 L Glucose 112 H Calcium 8.2 L Total Protein Albumin 2.9 L Globulin 4.2 H Albumin/Globulin Ratio Urine Protein Urine Ketones Urine Occult Blood Ur Leukocyte Esterase Urine RBC Urine WBC Urine Bacteria Microbiology: Microbiology 01/02/19 16:40 Urine - Clean Void Mid-Stream Urine Culture - Final 01/02/19 15:23 Blood Blood Culture - Final Staphylococcus aureus 01/04/19 03:52 Nose MRSA (PCR) - Final 01/02/19 17:00 Blood Blood Culture - Preliminary Gram positive cocci Assessment and Plan - Narrative A/P Narrative: A: 1. MSSA bacteremia: 2/2 sets +ve on 01/02 - repeat blood Cx neg since 01/04/19 - likely source skin breakdown due to eczematous skin lesions over the legs - TTE report pending 2. Left upper chest wall abscess (3 x 7 cm) - awaiting IR guided drainage - sec to seeding from MSSA bacteremia 3. Encephalopathy: ? HTN emergency - resolved 4. Upper thoracic back pain: on exam the tenderness is mainly in left paravertebral area rather than over the vertebral spinous processes - sec to (2) Recommendations: - await IR guided drainage of left chest wall abscess for source control. Send aspirate for GS, C/S, cell count - Continue IV Cefazolin 2 gm q8 hrs - await blood Cx from 01/04 to be negative for 48 hrs. A midline could be placed after that - will tentatively plan for a 4 week course - continue decolonization protocol with 2% CHG wipes once daily x 5 days, day 2 - if upper thoracic back pain persists, or pt continues to be febrile or has leucocytosis, will recommend MRI of cervical and thoracic spine. will follow Feliberto Vuong MD Infectious diseases
[2019-01-05] MEDS ORDERED: IOPAMIDOL 100 ML BOTTLE IV ONE (09:40)
[2019-01-05] MEDS: amLODIPine 5 MG TABLET PO SCH (09:44)
[2019-01-05] MEDS: ENOXAPARIN 40 MG/0.4 ML SYRINGE SQ SCH (09:44)
[2019-01-05] MEDS: MUPIROCIN OINT 2% 22GM NARES SCH ×2 (09:45→21:18)
[2019-01-05] MEDS: PANTOPRAZOLE 40 MG TABLET PO SCH (09:45)
[2019-01-05 09:46] LABS: Basophils # (Auto) 0 K/mcL (0.0-0.3); Basophils % (Auto) 0.2 % (0.0-2.0); Eosinophils # (Auto) 0.2 K/mcL (0.0-0.7); Eosinophils % (Auto) 1.9 % (0.0-7.0); Granulocytes % (Auto) 79.6 % (38.0-78.0); Hemoglobin 11.6 g/dL (12.0-15.0); Lymphocytes # (Auto) 0.8 K/mcL (1.5-4.8); Lymphocytes % (Auto) 6.4 % (15.5-49.0); Mean Cell Volume 86.2 fL (80.0-100.0); Mean Corpuscular HGB Conc 33.1 g/dL (31.0-36.0); Mean Platelet Volume 10.5 fL (7.4-10.4); Monocytes # (Auto) 1.4 K/mcL (0.1-0.9); Monocytes % (Auto) 11.9 % (1.0-12.0); Platelet Count 212 K/mcL (140-440); RBC 4.07 M/mcL (4.00-5.20); Red Cell Distribution Width 13.6 % (11.5-14.5); WBC 12.1 K/mcL (4.5-11.0)
[2019-01-05 09:51] LABS: ALT/SGPT 15 U/l (0-40); AST/SGOT 17 U/l (0-37); Albumin 2.6 gm/dL (3.2-5.2); Albumin/Globulin Ratio 0.6 (1.0-2.3); Alkaline Phosphatase 68 U/L (39-117); Bilirubin,Direct < 0.2 mg/dL (0.0-0.3); Bilirubin,Total 0.2 mg/dL (0.0-1.0); Blood Urea Nitrogen 5 mg/dl (8-23); Calcium 8.3 mg/dl (8.6-10.4); Carbon Dioxide 26 mmol/L (22-30); Chloride 97 mmol/L (96-108); Globulin 4.1 gm/dL (2.2-3.7); Glomerular Filtration Rate 84; Glucose 111 mg/dL (70-105); HDL Cholesterol 30 mg/dl (>40); LDL Cholesterol,Calculated 60 mg/dl (SEE CHART); Lactate Dehydrogenase 202 U/L (94-250); Non-HDL Cholesterol 76 (LDL TARGET+30); Phosphorous 1.5 mg/dL (2.7-4.5); Triglycerides 83 mg/dl (<150)
[2019-01-05] MEDS ORDERED: FUROSEMIDE 20 MG/2 ML VIAL IV ONE (10:06)
[2019-01-05] MEDS: KETOROLAC TROMETHAMINE 3 ML DROPS OP SCH ×2 (10:14→21:19)
[2019-01-05] MEDS: TIMOLOL 0.5% OPHTH DROPS BOTTLE 5ML OU SCH ×2 (10:15→21:20)
--- NOTE | 2019-01-05 10:48 | Cat Scan Report ---
CLINICAL INFORMATION: Bacteremia - search for source of infection COMPARISON: None. TECHNIQUE: 80 cc of Isovue-370 were injected intravenously, and 25 seconds later, 0.625 mm helical slices were obtained from the lung apices through the bases. Following reconstruction, 2.5 mm sagittal, coronal and axial reformations were processed and reviewed at lung, mediastinal and bone windows. 7 mm axial MIPS were also obtained to optimize pulmonary nodule detection. The exam was performed using radiation dose optimization techniques including, but not limited to, automated exposure control, adjustment of the mA and/or kV according to patient size and use of iterative reconstruction technique. FINDINGS: There is a 3 x 7 cm abscess either in the anterior extrapleural space of the left lung apex. It is located in the subclavicular region - adjacent to the anterior first rib. It contains small amounts of gas and a very thin intermittent capsule. No evidence of adjacent osseous erosion. It results in mild compressive atelectasis of the adjacent left upper lobe. Moderate left and small right pleural effusions appear to be simple. Mild segmental atelectasis in the posterior left lower lobe adjacent to the left pleural effusion appreciated The heart is moderately enlarged with moderate distention of the pulmonary vasculature and mild interstitial edema and interlobular septa, moderate superimposed CHF. No rivka infiltrates. Leg Mediastinal windows to the thoracic aorta is normal in contour and caliber with scattered atherosclerotic plaque. There is no adenopathy in the mediastinal hilar or axillary regions. Mild stenosis of the left subclavian artery origin appreciated less than 50%. Aortic branches are grossly normal. There is a 10 mm low-attenuation nodule in the left inferior thyroid lobe which is unchanged is unchanged in [address] compatible with a benign adenoma. Esophagus is grossly normal. Bone windows show slight deformity of the right proximal humerus which could indicate a malunified old fracture. No other osseous abnormality. Severe abdomen no abnormality. IMPRESSION: 1. 3 x 7 cm extrapleural abscess in the anterior left lung apex. It extends into the extracostal soft tissues, but there is no osseous erosion. This could be percutaneously drained under CT guidance. 2. Moderate CHF: Moderate cardiomegaly with moderate pulmonary vasculature distention and mild interstitial edema. Moderate left and small right pleural effusion have simple (noninfected appearing) attenuation features. 3. 10 mm low-attenuation benign adenoma inferior left thyroid lobe - stable since [address] 4. 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 Consider follow Doppler exam in one year Interpreted and Authenticated by: Amrit Gasca 01/05/19
--- NOTE | 2019-01-05 11:21 | Internal Med Progress Note ---
Medical - PN: Subj Patient information: Note initiated : 01/05/19 at 11:18 am Service Date, if different from initiated Date: [] Patient: Fiorella Leon a 78 y/o F admitted on 01/02/19 for Shoulder pain, Change in LOC. Chief Complaint: [] Interval history: Ms. Leon is a 78 year old F who presents to the emergency department brought in by her with concerns of confusion. Apparently she had not been doing well for the last few days, however was just seen here yesterday with main complaint of left shoulder pain and was diagnosed with muscle spasm. She was prescribed Flexeril, it is unclear if she is taking many of those tablets. She reports back to the ED with her quite confused. Apparently she did not follow much conversation and could not give much history upon arrival though did improve after fluids. Evaluation in the emergency department shows evidence of urinary tract infection with sepsis, white count of 20 and encephalopathy. Location: Systemic; timing: Onset 1 to 2 days ago; severity: Moderate; associated symptoms: As in review of systems. Patient felt feverish last evening, she felt chilled but did not have shaking chills. She occasionally has a headache, but none currently. No neck pain or stiffness. She had some mild nausea this morning but no emesis. She is had no abdominal pain. She has had no diarrhea. She has had some dysuria. In the emergency department, the patient is also noted to be extremely hypertensive with systolic blood pressures in the 200s and diastolics in the 110's. Patient was trying to describe that she had had a hypertensive reaction to a treatment for her glaucoma but is still little confused and cannot really provide details. According to her , her blood pressure may have been high for a while but she has never been treated for hypertension. She is now being admitted for treatment of sepsis from urinary source. 01/03-seen at bedside with her and nursing. She is less confused this afternoon and is starting to feel better. Blood cultures are positive for gram- positive cocci in both sets. Urine culture is without growth. Vancomycin added to regimen. Patient really had not been having fevers chills. She has been feeling poorly for a few days prior to presenting to the hospital however. She does have some wounds in the lower legs where she has scratched at areas of eczema. 2continues to improve. Mentation seems back to normal. Did have episode of chest tightness this morning, she is noted similar episodes in the past. Occurred at rest. She had had systolic blood pressure in the 200 range, had received hydralazine the time of onset with blood pressure down to the 140s. Cultures have identified pansensitive Staphylococcus aureus. Discussed with infectious disease, echo is ordered, will also obtain CT of the chest as well as the left shoulder where she has been having some pain. 9/3developed some dyspnea just about midnight. Also had low-grade fever. Received acetaminophen and breathing treatment. Also received 20 mg of Lasix with significant improvement in dyspnea. Feel little more dyspneic this morning as well. Review of intake/output shows she is about 6 L positive. Discussed with Dr. Vuong for infectious disease. CT scan images reviewed with him. Form al report now shows probable abscess in the left upper lung region extrapleural space. Still with left shoulder pain, query if it is related to the abscess. - Constitutional Vitals: Vital Signs Temp Pulse Resp BP Pulse Ox 97.8 F 75 22 154/68 94 01/05/19 08:00 01/05/19 08:00 01/05/19 08:00 01/05/19 08:00 01/05/19 08:00 Period Temp Pulse Resp BP Sys/Mccullough Pulse Ox Last 24 Hr 97.8 F-100.2 F 67-98 18-28 137-177/47-72 91-94 Intake and Output 01/04/19 01/05/19 01/05/19 21:59 05:59 13:59 Intake Total 600 Output Total 1000 300 Balance -400 -300 Weight 185 lb Intake & Output: Intake & Output 01/04/19 01/05/19 01/05/19 21:59 05:59 13:59 Intake Total 600 Output Total 1000 300 Balance -400 -300 Weight 185 lb Intake: Oral 600 Output: Void Amount 1000 300 Other: Meal Dinner Percent of Meal Consumed 25% Feeding Ability Assist with Tray Set Up Urine Appearance Clear Clear Clear Urine Color Dark Yellow Dark Yellow Dark Yellow Stool Size Large Stool Color Brown Stool Consistency Loose # Voids 1 # Bowel Movements 1 Exam: General: Looks a bit fatigued, mildly ill Chest: Clear, no rales, no accessory muscle use Cardiovascular: Regular, no murmur noted today Abdomen: Soft, nontender Neuro: Alert, oriented x3, ambulatory Medical - PN: Obj Da - Labs CBC & Chem 7: 01/05/19 06:38 01/05/19 06:38 Labs: Abnormal Lab Results 01/05/19 01/05/19 01/04/19 06:38 06:38 10:40 WBC 12.1 H Hgb 11.6 L Hct 35.0 L MPV 10.5 H Gran % 79.6 H Lymph % (Auto) 6.4 L Gran # 9.6 H Lymph # (Auto) 0.8 L Gonzales # (Auto) 1.4 H Sodium Potassium 2.8 L* Carbon Dioxide BUN 5 L Glucose 111 H Calcium 8.3 L Phosphorus 1.5 L Total Protein Albumin 2.6 L 2.9 L Globulin 4.1 H 4.2 H Albumin/Globulin Ratio 0.6 L HDL Cholesterol 30 L Urine Protein Urine Ketones Urine Occult Blood Ur Leukocyte Esterase Urine RBC Urine WBC Urine Bacteria 01/04/19 01/04/19 01/03/19 04:06 04:06 04:09 WBC 14.7 H Hgb Hct MPV Gran % 84.4 H Lymph % (Auto) 6.2 L Gran # 12.4 H Lymph # (Auto) 0.9 L Gonzales # (Auto) 1.3 H Sodium Potassium Carbon Dioxide 21 L 18 L BUN Glucose 112 H 110 H Calcium 8.2 L Phosphorus Total Protein Albumin Globulin Albumin/Globulin Ratio HDL Cholesterol Urine Protein Urine Ketones Urine Occult Blood Ur Leukocyte Esterase Urine RBC Urine WBC Urine Bacteria 01/03/19 01/02/19 01/02/19 04:09 16:40 14:15 WBC 19.5 H Hgb Hct MPV Gran % 82.5 H Lymph % (Auto) 5.9 L Gran # 16.1 H Lymph # (Auto) 1.1 L Gonzales # (Auto) 2.2 H Sodium 131 L Potassium Carbon Dioxide BUN Glucose 146 H Calcium Phosphorus Total Protein 8.7 H Albumin Globulin 4.9 H Albumin/Globulin Ratio 0.8 L HDL Cholesterol Urine Protein 100 A Urine Ketones 5/tr A Urine Occult Blood 0.03 A Ur Leukocyte Esterase 75 A Urine RBC 3 H Urine WBC 53 H Urine Bacteria Few A 01/02/19 14:15 WBC 20.2 H Hgb Hct MPV Gran % 89.0 H Lymph % (Auto) 3.2 L Gran # 18.0 H Lymph # (Auto) 0.6 L Gonzales # (Auto) 1.6 H Sodium Potassium Carbon Dioxide BUN Glucose Calcium Phosphorus Total Protein Albumin Globulin Albumin/Globulin Ratio HDL Cholesterol Urine Protein Urine Ketones Urine Occult Blood Ur Leukocyte Esterase Urine RBC Urine WBC Urine Bacteria Meds: Medications Acetaminophen (Tylenol) 650 mg PO Q6HP PRN PRN Reason: PAIN/FEVER > 101 Last Admin: 01/04/19 23:56 Dose: 650 mg Documented by: Albuterol/Ipratropium (Duoneb) 3 ml NEB Q4HP PRN PRN Reason: Shortness Of Breath Or Wheezing Last Admin: 01/04/19 23:56 Dose: 3 ml Documented by: Amlodipine Besylate (Norvasc) 10 mg PO DAILY [facility] Last Admin: 01/05/19 09:44 Dose: 10 mg Documented by: Bisacodyl (Dulcolax) 10 mg PO DAILYP PRN PRN Reason: Constipation Cefazolin Sodium (Ancef) 2 gm IV Q8H [facility]; Protocol Last Admin: 01/05/19 05:31 Dose: 2 gm Documented by: Enoxaparin Sodium (Lovenox) 40 mg SQ DAILY [facility] Last Admin: 01/05/19 09:44 Dose: 40 mg Documented by: Furosemide (Lasix) 20 mg IV DAILY [facility] Hydralazine HCl (Apresoline) 10 mg IV Q4-6HP PRN PRN Reason: Hypertension Last Admin: 01/04/19 23:57 Dose: 10 mg Documented by: Ketorolac Tromethamine (Ketorolac Tromethamine) 0 ml OP BID [facility] Last Admin: 01/05/19 10:14 Dose: 1 ml Documented by: Latanoprost (Xalatan Ophth Drops) 1 gtt OU HS [facility] Last Admin: 01/04/19 21:04 Dose: 1 gtt Documented by: Lisinopril (Zestril) 5 mg PO HS [facility] Last Admin: 01/04/19 21:03 Dose: 5 mg Documented by: Magnesium Hydroxide (Milk Of Magnesia) 30 ml PO DAILYP PRN PRN Reason: Constipation Mupirocin (Bactroban Oint 2%) 1 dose NARES BID [facility] Last Admin: 01/05/19 09:45 Dose: 1 dose Documented by: Ondansetron HCl (Zofran) 4 mg IV Q4HP PRN PRN Reason: Nausea And Vomiting Pantoprazole Sodium (Protonix) 40 mg PO QAMAC [facility] Last Admin: 01/05/19 09:45 Dose: 40 mg Documented by: Sodium Chloride (Saline Flush) 10 ml IV Q8 [facility] Last Admin: 01/05/19 05:32 Dose: 10 ml Documented by: Timolol Maleate (Timoptic 0.5% Ophth Drops) 1 gtt OU BID [facility] Last Admin: 01/05/19 10:15 Dose: 1 gtt Documented by: Tramadol HCl (Ultram) 50 mg PO Q4HP PRN PRN Reason: Pain Last Admin: 01/05/19 00:08 Dose: 50 mg Documented by: - Imaging and cardiology CT scan - chest Status: image reviewed by me Additional comments: IMPRESSION: 1. 3 x 7 cm extrapleural abscess in the anterior left lung apex. It extends into the extracostal soft tissues, but there is no osseous erosion. This could be percutaneously drained under CT guidance. 2. Moderate CHF: Moderate cardiomegaly with moderate pulmonary vasculature distention and mild interstitial edema. Moderate left and small right pleural effusion have simple (noninfected appearing) attenuation features. 3. 10 mm low-attenuation benign adenoma inferior left thyroid lobe - stable since [address] 4. 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 Consider follow Doppler exam in one year Medical - PN: A/P - Time Spent With Patient Total time spent is greater than 50% in coordination of care (as documented) at patient's floor/unit and/or counseling patient: Greater than 35 minutes (1) Staphylococcus aureus bacteremia with sepsis Status: Acute Current Visit: Yes (2) Sepsis Status: Acute Current Visit: Yes (3) Acute cystitis Status: Acute Current Visit: Yes (4) Hypertensive emergency Status: Acute Current Visit: Yes - Narrative A/P Narrative: Sepsis. Sepsis secondary to Staphylococcus aureus bacteremia. Suspected source is lesions on legs. CT of the thorax today reveals evidence of an extrapleural left upper lung abscess. This may represent a metastatic focus. Echocardiogram is completed, the reading is pending. Surveillance cultures now positive for gram-positive cocci in clusters. She does have some cervical spinal tenderness, though there appears to be an obvious focus of infection in the left lung. Plan: Continue cefazolin 2 g IV every 8 hours. Staph decolonization protocol. Follow-up surveillance blood cultures final results. CT-guided aspiration of abscess in the left upper lung. Consider MRI of the cervical and thoracic spine if cultures remain positive and she continues to have fever. Dyspnea. Improved after furosemide overnight. Suspect this is secondary to volume overload from fluid resuscitation. CT findings also consistent with mild pulmonary edema. Plan: Continue diuresis Acute cystitis. Patient with significant bacteriuria and pyuria, however cultures without growth. Plan: Nothing further Encephalopathy. Improving/resolved. Patient presented with confusion. This most likely is a toxic/metabolic encephalopathy from sepsis and Staphylococcus bacteremia. Differential includes hypertensive emergency and encephalopathy, though suspect that is less likely as she appears to have had long-standing high blood pressure. Plan: Continue to treat staph infection, control blood pressure, follow mental status, supportive care Hypertensive urgency. Significantly elevated blood pressures in the ED. No real data on old blood pressure readings readily available. Suspect this is chronic, so was not too aggressive in initial blood pressure lowering an initial target systolic of 180. Pressures were still elevated this morning, amlodipine have been started at admission, receiving as needed hydralazine. Plan: Continue increased amlodipine at 10 mg daily, continue added lisinopril at bedtime, continue with as needed hydralazine for systolics greater than 160. Tighten goal systolic to 140. Ultimately will need to establish primary care to follow her hypertension. Will need an echocardiogram for her gram-positive bacteremia. 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 Noted on CT presentation. Plan: Cardiovascular risk modification as above with blood pressure control. Checking lipid panel. Prophylaxis: Enoxaparin Code Status: DNR
[2019-01-05] MEDS: POTASSIUM CHLORIDE 20 MEQ TABLET PO SCH ×2 (13:08→17:05)
[2019-01-05] MEDS: LISINOPRIL 5 MG TABLET PO SCH (21:16)
[2019-01-05] MEDS: LATANOPROST OPHTH DROPS 2.5ML BOTTLE OU SCH (21:19)
[2019-01-06] MEDS: ceFAZolin 1 GM VIAL IV SCH ×3 (05:21→21:14)
[2019-01-06] MEDS: 0.9 % SODIUM CHLORIDE 10 ML SYRINGE IV SCH ×3 (05:22→21:18)
[2019-01-06] MEDS: IPRATROPIUM/ALBUTEROL 3 ML AMPUL.NEB NEB PRN (05:35)
[2019-01-06 09:24] LABS: Basophils # (Auto) 0 K/mcL (0.0-0.3); Basophils % (Auto) 0.2 % (0.0-2.0); Eosinophils # (Auto) 0.2 K/mcL (0.0-0.7); Eosinophils % (Auto) 1.5 % (0.0-7.0); Granulocytes % (Auto) 79.3 % (38.0-78.0); Hematocrit 38.3 % (36.0-48.0); Hemoglobin 12.5 g/dL (12.0-15.0); Lymphocytes # (Auto) 0.8 K/mcL (1.5-4.8); Lymphocytes % (Auto) 6.4 % (15.5-49.0); Mean Cell Volume 86.7 fL (80.0-100.0); Mean Corpuscular HGB Conc 32.7 g/dL (31.0-36.0); Mean Platelet Volume 10.5 fL (7.4-10.4); Monocytes # (Auto) 1.6 K/mcL (0.1-0.9); Monocytes % (Auto) 12.6 % (1.0-12.0); Platelet Count 239 K/mcL (140-440); RBC 4.41 M/mcL (4.00-5.20); Red Cell Distribution Width 13.3 % (11.5-14.5); WBC 12.6 K/mcL (4.5-11.0)
[2019-01-06] MEDS: amLODIPine 5 MG TABLET PO SCH (09:57)
[2019-01-06] MEDS: PANTOPRAZOLE 40 MG TABLET PO SCH (09:57)
[2019-01-06] MEDS: MUPIROCIN OINT 2% 22GM NARES SCH ×2 (10:08→21:14)
[2019-01-06] MEDS: KETOROLAC TROMETHAMINE 3 ML DROPS OP SCH ×2 (10:10→21:16)
[2019-01-06] MEDS: ENOXAPARIN 40 MG/0.4 ML SYRINGE SQ SCH (10:10)
[2019-01-06] MEDS: FUROSEMIDE 20 MG/2 ML VIAL IV SCH (10:10)
[2019-01-06] MEDS: TIMOLOL 0.5% OPHTH DROPS BOTTLE 5ML OU SCH ×2 (10:11→21:17)
[2019-01-06 10:21] LABS: ALT/SGPT 11 U/l (0-40); AST/SGOT 18 U/l (0-37); Albumin 2.8 gm/dL (3.2-5.2); Albumin/Globulin Ratio 0.6 (1.0-2.3); Alkaline Phosphatase 87 U/L (39-117); Bilirubin,Direct < 0.2 mg/dL (0.0-0.3); Bilirubin,Total 0.3 mg/dL (0.0-1.0); Blood Urea Nitrogen 6 mg/dl (8-23); Calcium 8.7 mg/dl (8.6-10.4); Carbon Dioxide 28 mmol/L (22-30); Chloride 98 mmol/L (96-108); Globulin 4.6 gm/dL (2.2-3.7); Glomerular Filtration Rate 84; Glucose 115 mg/dL (70-105); Lactate Dehydrogenase 365 U/L (94-250); Phosphorous 1.6 mg/dL (2.7-4.5); Triglycerides 90 mg/dl (<150); Uric Acid 3.1 mg/dL (2.5-8.0)
--- NOTE | 2019-01-06 11:54 | Internal Med Progress Note ---
Medical - PN: Subj Patient information: Note initiated : 01/06/19 at 11:52 am Service Date, if different from initiated Date: [] Patient: Fiorella Leon a 78 y/o F admitted on 01/02/19 for Shoulder pain, Change in LOC. Chief Complaint: [] Interval history: Ms. Leon is a 78 year old F who presents to the emergency department brought in by her with concerns of confusion. Apparently she had not been doing well for the last few days, however was just seen here yesterday with main complaint of left shoulder pain and was diagnosed with muscle spasm. She was prescribed Flexeril, it is unclear if she is taking many of those tablets. She reports back to the ED with her quite confused. Apparently she did not follow much conversation and could not give much history upon arrival though did improve after fluids. Evaluation in the emergency department shows evidence of urinary tract infection with sepsis, white count of 20 and encephalopathy. Location: Systemic; timing: Onset 1 to 2 days ago; severity: Moderate; associated symptoms: As in review of systems. Patient felt feverish last evening, she felt chilled but did not have shaking chills. She occasionally has a headache, but none currently. No neck pain or stiffness. She had some mild nausea this morning but no emesis. She is had no abdominal pain. She has had no diarrhea. She has had some dysuria. In the emergency department, the patient is also noted to be extremely hypertensive with systolic blood pressures in the 200s and diastolics in the 110's. Patient was trying to describe that she had had a hypertensive reaction to a treatment for her glaucoma but is still little confused and cannot really provide details. According to her , her blood pressure may have been high for a while but she has never been treated for hypertension. She is now being admitted for treatment of sepsis from urinary source. 01/03-seen at bedside with her and nursing. She is less confused this afternoon and is starting to feel better. Blood cultures are positive for gram- positive cocci in both sets. Urine culture is without growth. Vancomycin added to regimen. Patient really had not been having fevers chills. She has been feeling poorly for a few days prior to presenting to the hospital however. She does have some wounds in the lower legs where she has scratched at areas of eczema. 2continues to improve. Mentation seems back to normal. Did have episode of chest tightness this morning, she is noted similar episodes in the past. Occurred at rest. She had had systolic blood pressure in the 200 range, had received hydralazine the time of onset with blood pressure down to the 140s. Cultures have identified pansensitive Staphylococcus aureus. Discussed with infectious disease, echo is ordered, will also obtain CT of the chest as well as the left shoulder where she has been having some pain. eveloped some dyspnea just about midnight. Also had low-grade fever. Received acetaminophen and breathing treatment. Also received 20 mg of Lasix with significant improvement in dyspnea. Feel little more dyspneic this morning as well. Review of intake/output shows she is about 6 L positive. Discussed with Dr. Vuong for infectious disease. CT scan images reviewed with him. For mal report now shows probable abscess in the left upper lung region extrapleural space. Still with left shoulder pain, query if it is related to the abscess. 01/06-patient feels a lot better since admission. at bedside. Discussed blood cultures/imaging findings and treatment plan. Abscess drainage scheduled for 2 PM. Surveillance cultures from 01/04+ for gram-positive cocci. MSSA on ini tial cultures. On IV cefazolin as per ID. ID recommends transesophageal echocardiogram as outpatient. Continuing antibiotic coverage. White count down from 20,200-12.6. Potassium improved from 2.8-3.3. UA pyuria. Remains afebrile. - Constitutional Vitals: Vital Signs Temp Pulse Resp BP Pulse Ox 97.7 F 81 18 175/76 90 01/06/19 07:39 01/06/19 07:39 01/06/19 07:39 01/06/19 07:39 01/06/19 07:39 Period Temp Pulse Resp BP Sys/Mccullough Pulse Ox Last 24 Hr 97.2 F-98.1 F 77-90 18-22 145-175/63-79 90-98 Intake and Output 01/05/19 01/06/19 01/06/19 21:59 05:59 13:59 Intake Total 1200 300 120 Output Total 1400 800 251 Balance -200 -500 -131 Weight 185 lb 9 oz Intake & Output: Intake & Output 01/05/19 01/06/19 01/06/19 21:59 05:59 13:59 Intake Total 1200 300 120 Output Total 1400 800 251 Balance -200 -500 -131 Weight 185 lb 9 oz Intake: Oral 1200 300 120 Output: Void Amount 1400 800 250 # of times incontinent of urine 1 Other: Meal Dinner Breakfast Percent of Meal Consumed 75% 100% Feeding Ability Independent Urine Appearance Clear Urine Color Pale Urine Odor Normal Stool Size Large Stool Color Brown Stool Consistency Soft # Bowel Movements 1 # of times incontinent of 1 Bowels General appearance: no acute distress Exam: Alert oriented Nonlabored breathing No anxiety No lymphedema or joint swelling Diminished breath sounds bases No murmur Medical - PN: Obj Da - Labs CBC & Chem 7: 01/06/19 06:28 01/06/19 06:28 Labs: Abnormal Lab Results 01/06/19 01/06/19 01/05/19 06:28 06:28 06:38 WBC 12.6 H Hgb Hct MPV 10.5 H Gran % 79.3 H Lymph % (Auto) 6.4 L [place] % (Auto) 12.6 H Gran # 10.0 H Lymph # (Auto) 0.8 L [place] # (Auto) 1.6 H Potassium 2.8 L* Carbon Dioxide BUN 6 L 5 L Glucose 115 H 111 H Calcium 8.3 L Phosphorus 1.6 L 1.5 L Lactate Dehydrogenase 365 H Albumin 2.8 L 2.6 L Globulin 4.6 H 4.1 H Albumin/Globulin Ratio 0.6 L 0.6 L HDL Cholesterol 30 L 01/05/19 01/04/19 01/04/19 06:38 10:40 04:06 WBC 12.1 H Hgb 11.6 L Hct 35.0 L MPV 10.5 H Gran % 79.6 H Lymph % (Auto) 6.4 L [place] % (Auto) Gran # 9.6 H Lymph # (Auto) 0.8 L [place] # (Auto) 1.4 H Potassium Carbon Dioxide 21 L BUN Glucose 112 H Calcium 8.2 L Phosphorus Lactate Dehydrogenase Albumin 2.9 L Globulin 4.2 H Albumin/Globulin Ratio HDL Cholesterol 01/04/19 04:06 WBC 14.7 H Hgb Hct MPV Gran % 84.4 H Lymph % (Auto) 6.2 L [place] % (Auto) Gran # 12.4 H Lymph # (Auto) 0.9 L [place] # (Auto) 1.3 H Potassium Carbon Dioxide BUN Glucose Calcium Phosphorus Lactate Dehydrogenase Albumin Globulin Albumin/Globulin Ratio HDL Cholesterol Meds: Medications Acetaminophen (Tylenol) 650 mg PO Q6HP PRN PRN Reason: PAIN/FEVER > 101 Last Admin: 01/04/19 23:56 Dose: 650 mg Documented by: Albuterol/Ipratropium (Duoneb) 3 ml NEB Q4HP PRN PRN Reason: Shortness Of Breath Or Wheezing Last Admin: 01/06/19 05:35 Dose: 3 ml Documented by: Amlodipine Besylate (Norvasc) 10 mg PO DAILY [facility] Last Admin: 01/06/19 09:57 Dose: Not Given Documented by: Bisacodyl (Dulcolax) 10 mg PO DAILYP PRN PRN Reason: Constipation Cefazolin Sodium (Ancef) 2 gm IV Q8H [facility]; Protocol Last Admin: 01/06/19 05:21 Dose: 2 gm Documented by: Enoxaparin Sodium (Lovenox) 40 mg SQ DAILY [facility] Last Admin: 01/06/19 10:10 Dose: 40 mg Documented by: Furosemide (Lasix) 20 mg IV DAILY [facility] Last Admin: 01/06/19 10:10 Dose: 20 mg Documented by: Hydralazine HCl (Apresoline) 10 mg IV Q4-6HP PRN PRN Reason: Hypertension Last Admin: 01/04/19 23:57 Dose: 10 mg Documented by: Ketorolac Tromethamine (Ketorolac Tromethamine) 0 ml OP BID [facility] Last Admin: 01/06/19 10:10 Dose: 3 ml Documented by: Latanoprost (Xalatan Ophth Drops) 1 gtt OU HS [facility] Last Admin: 01/05/19 21:19 Dose: 1 gtt Documented by: Lisinopril (Zestril) 5 mg PO HS [facility] Last Admin: 01/05/19 21:16 Dose: 5 mg Documented by: Magnesium Hydroxide (Milk Of Magnesia) 30 ml PO DAILYP PRN PRN Reason: Constipation Mupirocin (Bactroban Oint 2%) 1 dose NARES BID [facility] Last Admin: 01/06/19 10:08 Dose: 1 dose Documented by: Ondansetron HCl (Zofran) 4 mg IV Q4HP PRN PRN Reason: Nausea And Vomiting Pantoprazole Sodium (Protonix) 40 mg PO QAMAC [facility] Last Admin: 01/06/19 09:57 Dose: Not Given Documented by: Sodium Chloride (Saline Flush) 10 ml IV Q8 [facility] Last Admin: 01/06/19 05:22 Dose: 10 ml Documented by: Timolol Maleate (Timoptic 0.5% Ophth Drops) 1 gtt OU BID [facility] Last Admin: 01/06/19 10:11 Dose: 1 gtt Documented by: Tramadol HCl (Ultram) 50 mg PO Q4HP PRN PRN Reason: Pain Last Admin: 01/05/19 17:06 Dose: 50 mg Documented by: Medical - PN: A/P - Time Spent With Patient Total time spent is greater than 50% in coordination of care (as documented) at patient's floor/unit and/or counseling patient: - Narrative A/P Narrative: * Sepsis. Sepsis secondary to Staphylococcus aureus bacteremia. Clinically improved antibiotic coverage. White count downtrending. * Left upper lung abscess. Scheduled for CT-guided aspiration today * MSSA bacteremia, surveillance cultures positive. Continue additional s urveillance cultures. ID recommends transesophageal echocardiogram as outpatient. ID on board. * Dyspnea. Improved with diuresis. Suspect this is secondary to volume overload from fluid resuscitation. * Acute cystitis. Clinically resolved * Encephalopathy clinically resolved * Hypertensive urgency, resolved . Continue amlodipine 10mg/JORDAN inhibitor/as needed hydralazine. 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 * \Prophylaxis heparin * DNR Plan * CT-guided aspiration today * Antibiotic coverage per ID * Prior medical condition management as above * Discharge planning per case management
--- NOTE | 2019-01-06 14:51 | Infectious Disease Prog Note ---
Subjective Patient information: Note initiated : 01/06/19 at 2:49 pm Service Date, if different from initiated Date: [] Patient: Fiorella Leon 78 y/o F admitted on 01/02/19 for Shoulder pain, Change in LOC. Chief Complaint: [] Interval history: Pt doing fine, except for left shoulder and left upper back pain. Denied any n/v, fever, chills. Endorses 2 loose stools today and 1 yesterday. Is scheduled for her proecedure this afternoon. Discussed need for repeat blood Cx until neg for 48 hrs and then PICC line placement for superintendent terminal antibiotics. Objective Objective Narrative: ao x 3, in nad no thrush chest has b/l wheezing s1 s2 normal, 2/6 ESM at rt 2nd ICS bs ++ nttd no edema Left shoulder tender on movemment - Vital Signs Vital signs: Vital Signs Temp Pulse Resp BP BP Pulse Ox 01/06/19 12:00 37.0 C 70 18 161/64 94 01/06/19 08:00 70 94 01/06/19 07:39 36.5 C 81 18 175/76 90 01/06/19 04:00 36.6 C 77 18 154/68 98 01/06/19 00:00 36.7 C 90 18 158/78 98 01/05/19 19:47 36.4 C 84 18 159/76 94 01/05/19 19:39 79 18 95 01/05/19 16:00 36.2 C 79 20 157/79 95 Intake and Output 01/06/19 01/06/19 01/06/19 05:59 13:59 21:59 Intake Total 300 120 Output Total 800 1051 Balance -500 -931 Intake: Oral 300 120 Output: Void Amount 800 1050 # of times incontinent of urine 1 Other: Meal Breakfast Percent of Meal Consumed 100% Stool Size Large Stool Color Brown Stool Consistency Normal for Patient # Bowel Movements 1 # of times incontinent of 1 Bowels Intake & Output: Intake & Output 01/06/19 01/06/19 01/06/19 05:59 13:59 21:59 Intake Total 300 120 Output Total 800 1051 Balance -500 -931 Intake: Oral 300 120 Output: Void Amount 800 1050 # of times incontinent of urine 1 Other: Meal Breakfast Percent of Meal Consumed 100% Stool Size Large Stool Color Brown Stool Consistency Normal for Patient # Bowel Movements 1 # of times incontinent of 1 Bowels - Lab 01/06/19 06:28 01/06/19 06:28 Most recent lab results Calcium 8.7 mg/dl (8.6-10.4) 01/06/19 06:28 Phosphorus 1.6 mg/dL (2.7-4.5) L 01/06/19 06:28 Magnesium 1.9 mg/dL (1.6-2.5) 01/06/19 06:28 Microbiology 01/04/19 15:36 Blood Blood Culture - Preliminary 01/04/19 14:27 Blood Blood Culture - Preliminary Gram positive cocci 01/02/19 16:40 Urine - Clean Void Mid-Stream Urine Culture - Final 01/02/19 15:23 Blood Blood Culture - Final Staphylococcus aureus 01/04/19 03:52 Nose MRSA (PCR) - Final 01/02/19 17:00 Blood Blood Culture - Preliminary Gram positive cocci Medications Active Medications: Acetaminophen (Tylenol) 650 mg PO Q6HP PRN PRN Reason: PAIN/FEVER > 101 Last Admin: 01/04/19 23:56 Dose: 650 mg Documented by: LAURA Albuterol/Ipratropium (Duoneb) 3 ml NEB Q4HP PRN PRN Reason: Shortness Of Breath Or Wheezing Last Admin: 01/06/19 05:35 Dose: 3 ml Documented by: Admin: 01/04/19 23:56 Dose: 3 ml Documented by: LAURA Amlodipine Besylate (Norvasc) 10 mg PO DAILY [facility] Last Admin: 01/06/19 09:57 Dose: Not Given Documented by: NICANOR Non-Admin Reason: NPO Admin: 01/05/19 09:44 Dose: 10 mg Documented by: NICANOR Bisacodyl (Dulcolax) 10 mg PO DAILYP PRN PRN Reason: Constipation Cefazolin Sodium (Ancef) 2 gm IV Q8H [facility]; Protocol Last Admin: 01/06/19 05:21 Dose: 2 gm Documented by: Admin: 01/05/19 21:16 Dose: 2 gm Documented by: Admin: 01/05/19 17:06 Dose: 2 gm Documented by: Admin: 01/05/19 05:31 Dose: 2 gm Documented by: Admin: 01/04/19 21:02 Dose: 2 gm Documented by: LAURA Enoxaparin Sodium (Lovenox) 40 mg SQ DAILY [facility] Last Admin: 01/06/19 10:10 Dose: 40 mg Documented by: Admin: 01/05/19 09:44 Dose: 40 mg Documented by: NICANOR Furosemide (Lasix) 20 mg IV DAILY [facility] Last Admin: 01/06/19 10:10 Dose: 20 mg Documented by: NICANOR Hydralazine HCl (Apresoline) 10 mg IV Q4-6HP PRN PRN Reason: Hypertension Last Admin: 01/04/19 23:57 Dose: 10 mg Documented by: Admin: 01/04/19 19:29 Dose: 10 mg Documented by: LAURA Ketorolac Tromethamine (Ketorolac Tromethamine) 0 ml OP BID [facility] Last Admin: 01/06/19 10:10 Dose: 3 ml Documented by: Admin: 01/05/19 21:19 Dose: Not Given Documented by: NICK Non-Admin Reason: Patient Refused Admin: 01/05/19 10:14 Dose: 1 ml Documented by: NICANOR Comments: Would not scan Admin: 01/04/19 21:04 Dose: 1 ml Documented by: LAURA Comments: barcode unable to scan for all eye medications Latanoprost (Xalatan Ophth Drops) 1 gtt OU HS [facility] Last Admin: 01/05/19 21:19 Dose: 1 gtt Documented by: Admin: 01/04/19 21:04 Dose: 1 gtt Documented by: LAURA Lisinopril (Zestril) 5 mg PO HS [facility] Last Admin: 01/05/19 21:16 Dose: 5 mg Documented by: Admin: 01/04/19 21:03 Dose: 5 mg Documented by: LAURA Magnesium Hydroxide (Milk Of Magnesia) 30 ml PO DAILYP PRN PRN Reason: Constipation Mupirocin (Bactroban Oint 2%) 1 dose NARES BID [facility] Last Admin: 01/06/19 10:08 Dose: 1 dose Documented by: Admin: 01/05/19 21:18 Dose: 1 dose Documented by: Admin: 01/05/19 09:45 Dose: 1 dose Documented by: Admin: 01/04/19 21:06 Dose: 1 dose Documented by: LAURA Comments: barcode not scanning - saying discontinued Ondansetron HCl (Zofran) 4 mg IV Q4HP PRN PRN Reason: Nausea And Vomiting Pantoprazole Sodium (Protonix) 40 mg PO QAMAC [facility] Last Admin: 01/06/19 09:57 Dose: Not Given Documented by: NICANOR Non-Admin Reason: NPO Admin: 01/05/19 09:45 Dose: 40 mg Documented by: NICANOR Sodium Chloride (Saline Flush) 10 ml IV Q8 [facility] Last Admin: 01/06/19 05:22 Dose: 10 ml Documented by: Admin: 01/05/19 21:20 Dose: 10 ml Documented by: Admin: 01/05/19 17:06 Dose: 10 ml Documented by: Admin: 01/05/19 05:32 Dose: 10 ml Documented by: Admin: 01/04/19 21:02 Dose: 10 ml Documented by: LAURA Timolol Maleate (Timoptic 0.5% Ophth Drops) 1 gtt OU BID [facility] Last Admin: 01/06/19 10:11 Dose: 1 gtt Documented by: NICANOR Comments: will not scan Admin: 01/05/19 21:20 Dose: 1 gtt Documented by: Admin: 01/05/19 10:15 Dose: 1 gtt Documented by: Admin: 01/04/19 21:04 Dose: 1 gtt Documented by: LAURA Tramadol HCl (Ultram) 50 mg PO Q4HP PRN PRN Reason: Pain Last Admin: 01/05/19 17:06 Dose: 50 mg Documented by: Admin: 01/05/19 00:08 Dose: 50 mg Documented by: LAURA Assessment and Plan - Narrative A/P Narrative: A: 1. MSSA bacteremia: 2/2 sets +ve on 01/02, 1/2 sets on 01/04 - likely source skin breakdown due to eczematous skin lesions over the legs - TTE report neg for any vegetations, mod MR 2. Left upper chest wall abscess (3 x 7 cm) - awaiting IR guided drainage today afternoon - sec to seeding from MSSA bacteremia 3. Encephalopathy: ? HTN emergency - resolved 4. Upper thoracic back pain: on exam the tenderness is mainly in left paravertebral area rather than over the vertebral spinous processes - sec to (2) Recommendations: - await IR guided drainage of left chest wall abscess for source control. Send aspirate for GS, C/S, cell count - Continue IV Cefazolin 2 gm q8 hrs - repeat blood Cx sent today - will tentatively plan for a 4 week course - continue decolonization protocol with 2% CHG wipes once daily x 5 days, day 3 - if upper thoracic back pain persists after the IR procedure, or pt continues to be febrile or has leucocytosis, will recommend MRI of cervical and thoracic spine. - maty rec GABRIELA as OP will follow Feliberto Vuong MD Infectious diseases
[2019-01-06] MEDS ORDERED: MIDAZOLAM 2 MG/2 ML VIAL IV PRN (15:18)
[2019-01-06] MEDS ORDERED: fentaNYL 100 MCG/2 ML VIAL IV PRN (15:18)
[2019-01-06] MEDS ORDERED: LIDOCAINE 1% 20 ML VIAL SQ ONE (15:21)
--- NOTE | 2019-01-06 15:39 | Cat Scan Report ---
CLINICAL INFORMATION: Left apical extrapleural abscess COMPARISON: Chest CT 01/06/2019 TECHNIQUE:. The procedure and risks including possibility of bleeding, infection, bronchopleural fistula, pneumothorax and inadequate fluid drainage possibly necessitating surgery were explained to patient. He understood and wished to proceed. She was premedicated with 0.5 mg versed and 25 mg of fentanyl given intravenously while blood pressure and pulse oximeter monitoring. She maintained consciousness during the the procedure. Total sedation time 30 minutes. With the patient in supine position, the extra pleural abscess, over the left anterior lung apex, first CT localized. The skin overlying the abscess was marked, prepped and locally anesthetized with 1% lidocaine using a 25-gauge needle. A 6 Malagasy pigtail catheter mounted over a trocar was then gently advanced, under CT guidance, to the center of the abscess and uncoiled. Approximately 15 cc of purulent material was aspirated and sent for Gram stain culture and sensitivity. The tube was then irrigated with a total of 80 cc of normal sterile saline in 10 cc aliquots and left to gravity tube drainage. Postprocedure scan showed reduction in abscess size approximately 50%. IMPRESSION: Successful CT-guided percutaneous pigtail catheter placement in the 7 cm extrapleural abscess in the left anterior lung apex. Approximately 15 cc of purulent fluid was aspirated and sent for Gram stain culture and sensitivity. The tube was secured with 0 silk suture/adhesive disc. It was then irrigated and left to gravity bag drainage. Postprocedure imaging show the abscess to be approximately 50% of original size. Orders were written to irrigate the tube with 10 cc of normal saline every four hours forward and back and recorded net output. If the output is scant, it may require TNKase placement to enhance drainage Interpreted and Authenticated by: Amrit Gasca 01/06/19
[2019-01-06] MEDS: traMADol 50 MG TABLET PO PRN (15:52)
[2019-01-06] MEDS: ACETAMINOPHEN 325 MG TABLET PO PRN (18:38)
[2019-01-06] MEDS: LISINOPRIL 5 MG TABLET PO SCH (21:13)
[2019-01-06] MEDS: LATANOPROST OPHTH DROPS 2.5ML BOTTLE OU SCH (21:17)
[2019-01-07] MEDS: 0.9 % SODIUM CHLORIDE 10 ML SYRINGE IV SCH ×3 (05:30→21:39)
[2019-01-07] MEDS: ceFAZolin 1 GM VIAL IV SCH ×3 (05:30→21:38)
[2019-01-07 06:03] LABS: Basophils # (Auto) 0 K/mcL (0.0-0.3); Basophils % (Auto) 0.3 % (0.0-2.0); Eosinophils # (Auto) 0.1 K/mcL (0.0-0.7); Eosinophils % (Auto) 0.7 % (0.0-7.0); Granulocytes % (Auto) 75.8 % (38.0-78.0); Hematocrit 33.7 % (36.0-48.0); Hemoglobin 11.1 g/dL (12.0-15.0); Lymphocytes # (Auto) 1.1 K/mcL (1.5-4.8); Lymphocytes % (Auto) 9.3 % (15.5-49.0); Mean Cell Volume 86.5 fL (80.0-100.0); Mean Corpuscular HGB Conc 32.9 g/dL (31.0-36.0); Mean Platelet Volume 9.8 fL (7.4-10.4); Monocytes # (Auto) 1.7 K/mcL (0.1-0.9); Monocytes % (Auto) 13.9 % (1.0-12.0); Platelet Count 242 K/mcL (140-440); Red Cell Distribution Width 13.5 % (11.5-14.5); WBC 12.3 K/mcL (4.5-11.0)
[2019-01-07 06:31] LABS: ALT/SGPT 8 U/l (0-40); AST/SGOT 15 U/l (0-37); Albumin 2.6 gm/dL (3.2-5.2); Albumin/Globulin Ratio 0.6 (1.0-2.3); Alkaline Phosphatase 70 U/L (39-117); Bilirubin,Direct < 0.2 mg/dL (0.0-0.3); Bilirubin,Total 0.3 mg/dL (0.0-1.0); Blood Urea Nitrogen 7 mg/dl (8-23); Calcium 8.6 mg/dl (8.6-10.4); Carbon Dioxide 29 mmol/L (22-30); Chloride 94 mmol/L (96-108); Globulin 4.2 gm/dL (2.2-3.7); Glomerular Filtration Rate 89; Glucose 120 mg/dL (70-105); Lactate Dehydrogenase 242 U/L (94-250); Phosphorous 2.2 mg/dL (2.7-4.5); Triglycerides 85 mg/dl (<150)
[2019-01-07] MEDS: PANTOPRAZOLE 40 MG TABLET PO SCH (07:24)
[2019-01-07] MEDS: FUROSEMIDE 20 MG/2 ML VIAL IV SCH (09:51)
[2019-01-07] MEDS: amLODIPine 5 MG TABLET PO SCH (09:51)
[2019-01-07] MEDS: ENOXAPARIN 40 MG/0.4 ML SYRINGE SQ SCH (09:52)
[2019-01-07] MEDS: MUPIROCIN OINT 2% 22GM NARES SCH ×2 (09:52→20:11)
[2019-01-07] MEDS: KETOROLAC TROMETHAMINE 3 ML DROPS OP SCH ×2 (09:53→20:11)
[2019-01-07] MEDS: TIMOLOL 0.5% OPHTH DROPS BOTTLE 5ML OU SCH ×2 (09:54→20:13)
[2019-01-07] MEDS ORDERED: MAGNESIUM SULFATE 2 GM/50 ML BAG IV PRN (10:59)
--- NOTE | 2019-01-07 11:00 | Internal Med Progress Note ---
Medical - PN: Subj Patient information: Note initiated : 01/07/19 at 10:55 am Service Date, if different from initiated Date: [] Patient: Fiorella Leon a 78 y/o F admitted on 01/02/19 for Shoulder pain, Change in LOC. Chief Complaint: [] Interval history: Ms. Leon is a 78 year old F who presents to the emergency department brought in by her with concerns of confusion. Apparently she had not been doing well for the last few days, however was just seen here yesterday with main complaint of left shoulder pain and was diagnosed with muscle spasm. She was prescribed Flexeril, it is unclear if she is taking many of those tablets. She reports back to the ED with her quite confused. Apparently she did not follow much conversation and could not give much history upon arrival though did improve after fluids. Evaluation in the emergency department shows evidence of urinary tract infection with sepsis, white count of 20 and encephalopathy. Location: Systemic; timing: Onset 1 to 2 days ago; severity: Moderate; associated symptoms: As in review of systems. Patient felt feverish last evening, she felt chilled but did not have shaking chills. She occasionally has a headache, but none currently. No neck pain or stiffness. She had some mild nausea this morning but no emesis. She is had no abdominal pain. She has had no diarrhea. She has had some dysuria. In the emergency department, the patient is also noted to be extremely hypertensive with systolic blood pressures in the 200s and diastolics in the 110's. Patient was trying to describe that she had had a hypertensive reaction to a treatment for her glaucoma but is still little confused and cannot really provide details. According to her , her blood pressure may have been high for a while but she has never been treated for hypertension. She is now being admitted for treatment of sepsis from urinary source. 01/03-seen at bedside with her and nursing. She is less confused this afternoon and is starting to feel better. Blood cultures are positive for gram- positive cocci in both sets. Urine culture is without growth. Vancomycin added to regimen. Patient really had not been having fevers chills. She has been feeling poorly for a few days prior to presenting to the hospital however. She does have some wounds in the lower legs where she has scratched at areas of eczema. 2continues to improve. Mentation seems back to normal. Did have episode of chest tightness this morning, she is noted similar episodes in the past. Occurred at rest. She had had systolic blood pressure in the 200 range, had received hydralazine the time of onset with blood pressure down to the 140s. Cultures have identified pansensitive Staphylococcus aureus. Discussed with infectious disease, echo is ordered, will also obtain CT of the chest as well as the left shoulder where she has been having some pain. eveloped some dyspnea just about midnight. Also had low-grade fever. Received acetaminophen and breathing treatment. Also received 20 mg of Lasix with significant improvement in dyspnea. Feel little more dyspneic this morning as well. Review of intake/output shows she is about 6 L positive. Discussed with Dr. Vuong for infectious disease. CT scan images reviewed with him. For mal report now shows probable abscess in the left upper lung region extrapleural space. Still with left shoulder pain, query if it is related to the abscess. 01/06-patient feels a lot better since admission. at bedside. Discussed blood cultures/imaging findings and treatment plan. Abscess drainage scheduled for 2 PM. Surveillance cultures from 01/04+ for gram-positive cocci. MSSA on ini tial cultures. On IV cefazolin as per ID. ID recommends transesophageal echocardiogram as outpatient. Continuing antibiotic coverage. White count down from 20,200-12.6. Potassium improved from 2.8-3.3. UA pyuria. Remains afebrile. 01/07-pansensitive staph aureus currently on cefazolin. ID recommends at least 4 weeks antibiotics. Potassium 3.1 on replacement. White count 12.3. Will require outpatient transesophageal echocardiogram. Surveillance blood cultures negative so far. - Constitutional Vitals: Vital Signs Temp Pulse Resp BP Pulse Ox 98.2 F 73 16 158/75 94 01/07/19 03:28 01/07/19 07:28 01/07/19 07:28 01/07/19 03:28 01/07/19 07:28 Period Temp Pulse Resp BP Sys/Mccullough Pulse Ox Last 24 Hr 97.5 F-98.6 F 70-77 16-18 155-184/58-93 91-100 Intake and Output 09/04/19 09/05/19 09/05/19 21:59 05:59 13:59 Intake Total 190 170 210 Output Total 495 389 305 Balance -95 Weight 177 lb 5 oz Intake & Output: Intake & Output 01/06/19 01/07/19 01/07/19 21:59 05:59 13:59 Intake Total 190 170 210 Output Total 495 389 305 Balance - -95 Weight 177 lb 5 oz Intake: Oral 180 150 200 Input, Drain Irrigation Amount 10 20 10 Left Upper T-Tube 10 20 10 Output: Drainage 20 39 5 Left Upper T-Tube 20 39 5 Void Amount 475 350 300 Other: Meal Breakfast Percent of Meal Consumed 100% Urine Appearance Clear Clear Urine Color Bright Yellow Bright Yellow Urine Odor Normal Normal General appearance: no acute distress Exam: Alert oriented Nonlabored breathing No anxiety No lymphedema Chest clear to auscultation Medical - PN: Obj Da - Labs CBC & Chem 7: 01/07/19 04:40 01/07/19 04:40 Labs: Abnormal Lab Results 01/07/19 01/07/19 01/06/19 04:40 04:40 06:28 WBC 12.3 H RBC 3.90 L Hgb 11.1 L Hct 33.7 L MPV Gran % Lymph % (Auto) 9.3 L [place] % (Auto) 13.9 H Gran # 9.3 H Lymph # (Auto) 1.1 L [place] # (Auto) 1.7 H Potassium 3.1 L Chloride 94 L BUN 7 L 6 L Glucose 120 H 115 H Calcium Phosphorus 2.2 L 1.6 L Lactate Dehydrogenase 365 H Albumin 2.6 L 2.8 L Globulin 4.2 H 4.6 H Albumin/Globulin Ratio 0.6 L 0.6 L HDL Cholesterol 01/06/19 01/05/19 01/05/19 06:28 06:38 06:38 WBC 12.6 H 12.1 H RBC Hgb 11.6 L Hct 35.0 L MPV 10.5 H 10.5 H Gran % 79.3 H 79.6 H Lymph % (Auto) 6.4 L 6.4 L [place] % (Auto) 12.6 H Gran # 10.0 H 9.6 H Lymph # (Auto) 0.8 L 0.8 L [place] # (Auto) 1.6 H 1.4 H Potassium 2.8 L* Chloride BUN 5 L Glucose 111 H Calcium 8.3 L Phosphorus 1.5 L Lactate Dehydrogenase Albumin 2.6 L Globulin 4.1 H Albumin/Globulin Ratio 0.6 L HDL Cholesterol 30 L 01/04/19 10:40 WBC RBC Hgb Hct MPV Gran % Lymph % (Auto) [place] % (Auto) Gran # Lymph # (Auto) [place] # (Auto) Potassium Chloride BUN Glucose Calcium Phosphorus Lactate Dehydrogenase Albumin 2.9 L Globulin 4.2 H Albumin/Globulin Ratio HDL Cholesterol Meds: Medications Acetaminophen (Tylenol) 650 mg PO Q6HP PRN PRN Reason: PAIN/FEVER > 101 Last Admin: 01/06/19 18:38 Dose: 650 mg Documented by: Albuterol/Ipratropium (Duoneb) 3 ml NEB Q4HP PRN PRN Reason: Shortness Of Breath Or Wheezing Last Admin: 01/06/19 05:35 Dose: 3 ml Documented by: Amlodipine Besylate (Norvasc) 10 mg PO DAILY [facility] Last Admin: 01/07/19 09:51 Dose: 10 mg Documented by: Bisacodyl (Dulcolax) 10 mg PO DAILYP PRN PRN Reason: Constipation Cefazolin Sodium (Ancef) 2 gm IV Q8H [facility]; Protocol Last Admin: 01/07/19 05:30 Dose: 2 gm Documented by: Enoxaparin Sodium (Lovenox) 40 mg SQ DAILY [facility] Last Admin: 01/07/19 09:52 Dose: 40 mg Documented by: Fentanyl (Sublimaze) 0 mcg IV PRN PRN PRN Reason: conscious sedation Last Admin: 01/06/19 14:30 Dose: 25 mcg Documented by: Furosemide (Lasix) 20 mg IV DAILY [facility] Last Admin: 01/07/19 09:51 Dose: 20 mg Documented by: Hydralazine HCl (Apresoline) 10 mg IV Q4-6HP PRN PRN Reason: Hypertension Last Admin: 01/04/19 23:57 Dose: 10 mg Documented by: Ketorolac Tromethamine (Ketorolac Tromethamine) 0 ml OP BID [facility] Last Admin: 01/07/19 09:53 Dose: 3 ml Documented by: Latanoprost (Xalatan Ophth Drops) 1 gtt OU HS [facility] Last Admin: 01/06/19 21:17 Dose: 1 gtt Documented by: Lisinopril (Zestril) 5 mg PO HS [facility] Last Admin: 01/06/19 21:13 Dose: 5 mg Documented by: Magnesium Hydroxide (Milk Of Magnesia) 30 ml PO DAILYP PRN PRN Reason: Constipation Midazolam HCl (Versed) 0 mg IV PRN PRN PRN Reason: conscious sedation Last Admin: 01/06/19 14:30 Dose: 0.5 mg Documented by: Mupirocin (Bactroban Oint 2%) 1 dose NARES BID [facility] Last Admin: 01/07/19 09:52 Dose: 1 dose Documented by: Ondansetron HCl (Zofran) 4 mg IV Q4HP PRN PRN Reason: Nausea And Vomiting Pantoprazole Sodium (Protonix) 40 mg PO QAMAC [facility] Last Admin: 01/07/19 07:24 Dose: 40 mg Documented by: Sodium Chloride (Saline Flush) 10 ml IV Q8 [facility] Last Admin: 01/07/19 05:30 Dose: 10 ml Documented by: Timolol Maleate (Timoptic 0.5% Ophth Drops) 1 gtt OU BID [facility] Last Admin: 01/07/19 09:54 Dose: 1 gtt Documented by: Tramadol HCl (Ultram) 50 mg PO Q4HP PRN PRN Reason: Pain Last Admin: 01/06/19 15:52 Dose: 50 mg Documented by: Medical - PN: A/P - Time Spent With Patient Total time spent is greater than 50% in coordination of care (as documented) at patient's floor/unit and/or counseling patient: 25 - 35 minutes - Narrative A/P Narrative: * Sepsis secondary to Staphylococcus aureus bacteremia. White count downtrending to 12.3. On IV cefazolin as per ID. Anticipate 4 to 6 weeks treatment per ID * Left upper lung abscess. Status post CT-guided aspiration * MSSA bacteremia, surveillance cultures since 01/04 negative. * Low phosphorus on replacement * Hypokalemia on replacement * Acute cystitis. Clinically resolved * Encephalopathy clinically resolved * Hypertensive urgency, resolved . Continue amlodipine 10mg/JORDAN inhibitor/as needed hydralazine. 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 * Prophylaxis heparin * DNR Plan * Continue IV antibiotics as per ID * Replace phosphorus and potassium * Transesophageal echocardiogram to be scheduled as outpatient on discharge * Prior medical condition management as above * Discharge planning per case management for long-term antibiotic
[2019-01-07] MEDS: IPRATROPIUM/ALBUTEROL 3 ML AMPUL.NEB NEB PRN (11:54)
--- NOTE | 2019-01-07 12:41 | Infectious Disease Prog Note ---
Subjective Patient information: Note initiated : 01/07/19 at 12:38 pm Service Date, if different from initiated Date: [] Patient: Fiorella Leon 78 y/o F admitted on 01/02/19 for Shoulder pain, Change in LOC. Chief Complaint: [] Interval history: Pt doing much better after the left shoulder region abscess drainage. About 50% of the abscess was drained and a drain was left in situ. No fever, chills, n/v, diarrhea. Discussed antibiotic plans, need for home health or coming to Infusion center at [facility] once daily for IV antibiotics. Pt mentioned she will talk to his family. Objective Objective Narrative: ao x 3, in nad no thrush chest has decreased BS at bases, no wheezing s1 s2 normal, 2/6 systolic murmur best heard over rt 2nd ICS chest wall area: has a drain with serosanguineous drainage in the bag - Vital Signs Vital signs: Vital Signs Temp Pulse Pulse Resp BP BP BP 01/07/19 11:56 67 16 01/07/19 08:00 37.2 C 75 18 149/65 01/07/19 07:28 73 16 01/07/19 03:28 36.8 C 73 16 158/75 01/06/19 23:55 36.4 C 77 16 160/67 01/06/19 20:00 36.7 C 74 18 155/65 01/06/19 19:23 36.7 C 01/06/19 18:38 36.9 C 01/06/19 16:00 36.9 C 71 18 184/93 01/06/19 15:15 73 16 174/72 01/06/19 15:00 75 16 167/68 01/06/19 14:45 74 16 174/66 01/06/19 14:40 73 16 171/58 01/06/19 14:35 71 16 171/74 01/06/19 14:30 76 16 176/66 Pulse Ox 01/07/19 11:56 01/07/19 08:00 90 01/07/19 07:28 94 01/07/19 03:28 94 01/06/19 23:55 94 01/06/19 20:00 94 01/06/19 19:23 01/06/19 18:38 01/06/19 16:00 91 01/06/19 15:15 100 01/06/19 15:00 99 01/06/19 14:45 98 01/06/19 14:40 96 01/06/19 14:35 97 01/06/19 14:30 94 Intake and Output 01/06/19 01/07/19 01/07/19 21:59 05:59 13:59 Intake Total 190 170 220 Output Total 495 389 308 - -88 Intake: Oral 180 150 200 Input, Drain Irrigation Amount 10 20 20 Left Upper T-Tube 10 20 20 Output: Drainage 20 39 8 Left Upper T-Tube 20 39 8 Void Amount 475 350 300 Other: Meal Breakfast Percent of Meal Consumed 100% Urine Appearance Clear Clear Urine Color Bright Yellow Bright Yellow Urine Odor Normal Normal Weight 80.428 kg Intake & Output: Intake & Output 01/06/19 01/07/19 01/07/19 21:59 05:59 13:59 Intake Total 190 170 220 Output Total 495 389 308 - -88 Weight 80.428 kg Intake: Oral 180 150 200 Input, Drain Irrigation Amount 10 20 20 Left Upper T-Tube 10 20 20 Output: Drainage 20 39 8 Left Upper T-Tube 20 39 8 Void Amount 475 350 300 Other: Meal Breakfast Percent of Meal Consumed 100% Urine Appearance Clear Clear Urine Color Bright Yellow Bright Yellow Urine Odor Normal Normal - Lab 01/07/19 04:40 01/07/19 04:40 Most recent lab results Calcium 8.6 mg/dl (8.6-10.4) 01/07/19 04:40 Phosphorus 2.2 mg/dL (2.7-4.5) L 01/07/19 04:40 Magnesium 1.9 mg/dL (1.6-2.5) 01/07/19 04:40 Microbiology 01/06/19 09:18 Blood Blood Culture - Preliminary 01/06/19 09:41 Blood Blood Culture - Preliminary 01/04/19 15:36 Blood Blood Culture - Preliminary 01/04/19 14:27 Blood Blood Culture - Preliminary Gram positive cocci 01/02/19 16:40 Urine - Clean Void Mid-Stream Urine Culture - Final 01/02/19 15:23 Blood Blood Culture - Final Staphylococcus aureus 01/04/19 03:52 Nose MRSA (PCR) - Final 01/02/19 17:00 Blood Blood Culture - Preliminary Gram positive cocci Medications Active Medications: Acetaminophen (Tylenol) 650 mg PO Q6HP PRN PRN Reason: PAIN/FEVER > 101 Last Admin: 01/06/19 18:38 Dose: 650 mg Documented by: Admin: 01/04/19 23:56 Dose: 650 mg Documented by: LAURA Albuterol/Ipratropium (Duoneb) 3 ml NEB Q4HP PRN PRN Reason: Shortness Of Breath Or Wheezing Last Admin: 01/07/19 11:54 Dose: 3 ml Documented by: Admin: 01/06/19 05:35 Dose: 3 ml Documented by: Admin: 01/04/19 23:56 Dose: 3 ml Documented by: LAURA Amlodipine Besylate (Norvasc) 10 mg PO DAILY [facility] Last Admin: 01/07/19 09:51 Dose: 10 mg Documented by: Admin: 01/06/19 09:57 Dose: Not Given Documented by: NICANOR Non-Admin Reason: NPO Admin: 01/05/19 09:44 Dose: 10 mg Documented by: NICANOR Bisacodyl (Dulcolax) 10 mg PO DAILYP PRN PRN Reason: Constipation Cefazolin Sodium (Ancef) 2 gm IV Q8H [facility]; Protocol Last Admin: 01/07/19 05:30 Dose: 2 gm Documented by: Admin: 01/06/19 21:14 Dose: 2 gm Documented by: Admin: 01/06/19 15:38 Dose: 2 gm Documented by: Admin: 01/06/19 05:21 Dose: 2 gm Documented by: Admin: 01/05/19 21:16 Dose: 2 gm Documented by: Admin: 01/05/19 17:06 Dose: 2 gm Documented by: Admin: 01/05/19 05:31 Dose: 2 gm Documented by: Admin: 01/04/19 21:02 Dose: 2 gm Documented by: LAURA Enoxaparin Sodium (Lovenox) 40 mg SQ DAILY [facility] Last Admin: 01/07/19 09:52 Dose: 40 mg Documented by: Admin: 01/06/19 10:10 Dose: 40 mg Documented by: Admin: 01/05/19 09:44 Dose: 40 mg Documented by: NICANOR Fentanyl (Sublimaze) 0 mcg IV PRN PRN PRN Reason: conscious sedation Last Admin: 01/06/19 14:30 Dose: 25 mcg Documented by: JESSA Comments: 1430--25mcg given per Furosemide (Lasix) 20 mg IV DAILY [facility] Last Admin: 01/07/19 09:51 Dose: 20 mg Documented by: Admin: 01/06/19 10:10 Dose: 20 mg Documented by: NICANOR Hydralazine HCl (Apresoline) 10 mg IV Q4-6HP PRN PRN Reason: Hypertension Last Admin: 01/04/19 23:57 Dose: 10 mg Documented by: Admin: 01/04/19 19:29 Dose: 10 mg Documented by: LAURA Magnesium Sulfate (Magnesium Sulfate) 2 gm in 50 mls @ 50 mls/hr IV UD PRN PRN Reason: Mag < or = 1.7 Ketorolac Tromethamine (Ketorolac Tromethamine) 0 ml OP BID [facility] Last Admin: 01/07/19 09:53 Dose: 3 ml Documented by: Admin: 01/06/19 21:16 Dose: 1 ml Documented by: Admin: 01/06/19 10:10 Dose: 3 ml Documented by: Admin: 01/05/19 21:19 Dose: Not Given Documented by: NICK Non-Admin Reason: Patient Refused Admin: 01/05/19 10:14 Dose: 1 ml Documented by: NICANOR Comments: Would not scan Admin: 01/04/19 21:04 Dose: 1 ml Documented by: LAURA Comments: barcode unable to scan for all eye medications Latanoprost (Xalatan Ophth Drops) 1 gtt OU HS [facility] Last Admin: 01/06/19 21:17 Dose: 1 gtt Documented by: Admin: 01/05/19 21:19 Dose: 1 gtt Documented by: Admin: 01/04/19 21:04 Dose: 1 gtt Documented by: LAURA Lisinopril (Zestril) 5 mg PO HS [facility] Last Admin: 01/06/19 21:13 Dose: 5 mg Documented by: Admin: 01/05/19 21:16 Dose: 5 mg Documented by: Admin: 01/04/19 21:03 Dose: 5 mg Documented by: LAURA Magnesium Hydroxide (Milk Of Magnesia) 30 ml PO DAILYP PRN PRN Reason: Constipation Midazolam HCl (Versed) 0 mg IV PRN PRN PRN Reason: conscious sedation Last Admin: 01/06/19 14:30 Dose: 0.5 mg Documented by: JESSA Comments: 1430--0.5mg given per MD Mupirocin (Bactroban Oint 2%) 1 dose NARES BID [facility] Last Admin: 01/07/19 09:52 Dose: 1 dose Documented by: Admin: 01/06/19 21:14 Dose: 1 dose Documented by: Admin: 01/06/19 10:08 Dose: 1 dose Documented by: Admin: 01/05/19 21:18 Dose: 1 dose Documented by: Admin: 01/05/19 09:45 Dose: 1 dose Documented by: Admin: 01/04/19 21:06 Dose: 1 dose Documented by: LAURA Comments: barcode not scanning - saying discontinued Ondansetron HCl (Zofran) 4 mg IV Q4HP PRN PRN Reason: Nausea And Vomiting Pantoprazole Sodium (Protonix) 40 mg PO QAMAC [facility] Last Admin: 01/07/19 07:24 Dose: 40 mg Documented by: Admin: 01/06/19 09:57 Dose: Not Given Documented by: NICANOR Non-Admin Reason: NPO Admin: 01/05/19 09:45 Dose: 40 mg Documented by: NICANOR Potassium Chloride (Potassium Chloride) 15 meq PT BIDCC [facility] Potassium/Phosphorus/Sodium (Neutra Phos) 2 packet PO BID [facility] Stop: 01/09/19 09:01 Sodium Chloride (Saline Flush) 10 ml IV Q8 [facility] Last Admin: 01/07/19 05:30 Dose: 10 ml Documented by: Admin: 01/06/19 21:18 Dose: 10 ml Documented by: Admin: 01/06/19 15:38 Dose: 10 ml Documented by: Admin: 01/06/19 05:22 Dose: 10 ml Documented by: Admin: 01/05/19 21:20 Dose: 10 ml Documented by: Admin: 01/05/19 17:06 Dose: 10 ml Documented by: Admin: 01/05/19 05:32 Dose: 10 ml Documented by: Admin: 01/04/19 21:02 Dose: 10 ml Documented by: LAURA Timolol Maleate (Timoptic 0.5% Ophth Drops) 1 gtt OU BID [facility] Last Admin: 01/07/19 09:54 Dose: 1 gtt Documented by: Admin: 01/06/19 21:17 Dose: 1 gtt Documented by: Admin: 01/06/19 10:11 Dose: 1 gtt Documented by: NICANOR Comments: will not scan Admin: 01/05/19 21:20 Dose: 1 gtt Documented by: Admin: 01/05/19 10:15 Dose: 1 gtt Documented by: Admin: 01/04/19 21:04 Dose: 1 gtt Documented by: LAURA Tramadol HCl (Ultram) 50 mg PO Q4HP PRN PRN Reason: Pain Last Admin: 01/06/19 15:52 Dose: 50 mg Documented by: Admin: 01/05/19 17:06 Dose: 50 mg Documented by: Admin: 01/05/19 00:08 Dose: 50 mg Documented by: LAURA Assessment and Plan - Narrative A/P Narrative: A: 1. MSSA bacteremia: 2/2 sets +ve on 01/02, 1/2 sets on 01/04 - likely source skin breakdown due to eczematous skin lesions over the legs - TTE report neg for any vegetations, mod MR 2. Left upper chest wall abscess (3 x 7 cm) - s/p IR guided drainage yesterday afternoon - sec to seeding from MSSA bacteremia Recommendations: - Continue IV Cefazolin 2 gm q8 hrs - await blood Cx sent 01/06. If neg for 48 hrs, a PICC line could be placed - will tentatively plan for a 4 week course with ID clinic f/u - continue decolonization protocol with 2% CHG wipes once daily x 5 days, day 4 - please arrange GABRIELA as OP prior to discharge will follow Feliberto Vuong MD Infectious diseases
[2019-01-07] MEDS: traMADol 50 MG TABLET PO PRN ×3 (14:03→21:41)
[2019-01-07] MEDS: POTASSIUM CHLORIDE 20 MEQ/15 ML ML PT SCH (17:53)
[2019-01-07] MEDS: NEUTRA PHOS 1 PACKET PO SCH (20:01)
[2019-01-07] MEDS: LISINOPRIL 5 MG TABLET PO SCH (20:02)
[2019-01-07] MEDS: LATANOPROST OPHTH DROPS 2.5ML BOTTLE OU SCH (20:12)
[2019-01-08] MEDS: traMADol 50 MG TABLET PO PRN ×3 (04:34→19:55)
[2019-01-08] MEDS: 0.9 % SODIUM CHLORIDE 10 ML SYRINGE IV SCH ×4 (05:41→21:28)
[2019-01-08] MEDS: ceFAZolin 1 GM VIAL IV SCH ×3 (05:41→21:37)
[2019-01-08 05:54] LABS: Basophils # (Auto) 0 K/mcL (0.0-0.3); Basophils % (Auto) 0.3 % (0.0-2.0); Eosinophils # (Auto) 0.2 K/mcL (0.0-0.7); Granulocytes % (Auto) 71.1 % (38.0-78.0); Hematocrit 36.7 % (36.0-48.0); Hemoglobin 11.6 g/dL (12.0-15.0); Lymphocytes # (Auto) 1.2 K/mcL (1.5-4.8); Lymphocytes % (Auto) 10.7 % (15.5-49.0); Mean Cell Volume 85.8 fL (80.0-100.0); Mean Corpuscular HGB Conc 31.6 g/dL (31.0-36.0); Mean Platelet Volume 10.3 fL (7.4-10.4); Monocytes # (Auto) 1.8 K/mcL (0.1-0.9); Monocytes % (Auto) 15.9 % (1.0-12.0); Platelet Count 254 K/mcL (140-440); RBC 4.28 M/mcL (4.00-5.20); Red Cell Distribution Width 13.5 % (11.5-14.5); WBC 11.4 K/mcL (4.5-11.0)
[2019-01-08 06:38] LABS: ALT/SGPT 10 U/l (0-40); AST/SGOT 21 U/l (0-37); Albumin 2.8 gm/dL (3.2-5.2); Albumin/Globulin Ratio 0.6 (1.0-2.3); Alkaline Phosphatase 66 U/L (39-117); Bilirubin,Direct < 0.2 mg/dL (0.0-0.3); Bilirubin,Total 0.3 mg/dL (0.0-1.0); Blood Urea Nitrogen 9 mg/dl (8-23); Calcium 8.7 mg/dl (8.6-10.4); Carbon Dioxide 26 mmol/L (22-30); Chloride 94 mmol/L (96-108); Globulin 4.4 gm/dL (2.2-3.7); Glomerular Filtration Rate 89; Glucose 120 mg/dL (70-105); Lactate Dehydrogenase 256 U/L (94-250); Phosphorous 2.5 mg/dL (2.7-4.5); Triglycerides 90 mg/dl (<150); Uric Acid 2.6 mg/dL (2.5-8.0)
[2019-01-08] MEDS: amLODIPine 5 MG TABLET PO SCH (08:14)
[2019-01-08] MEDS: ENOXAPARIN 40 MG/0.4 ML SYRINGE SQ SCH (08:15)
[2019-01-08] MEDS: PANTOPRAZOLE 40 MG TABLET PO SCH (08:16)
[2019-01-08] MEDS: POTASSIUM CHLORIDE 20 MEQ/15 ML ML PT SCH ×2 (08:16→16:52)
[2019-01-08] MEDS: MUPIROCIN OINT 2% 22GM NARES SCH ×2 (08:16→21:25)
[2019-01-08] MEDS: NEUTRA PHOS 1 PACKET PO SCH ×2 (08:17→21:25)
[2019-01-08] MEDS: FUROSEMIDE 20 MG/2 ML VIAL IV SCH (08:18)
[2019-01-08] MEDS: TIMOLOL 0.5% OPHTH DROPS BOTTLE 5ML OU SCH ×2 (08:19→21:28)
[2019-01-08] MEDS: KETOROLAC TROMETHAMINE 3 ML DROPS OP SCH ×2 (08:19→21:26)
[2019-01-08] MEDS ORDERED: 0.9 % SODIUM CHLORIDE 10 ML SYRINGE IV PRN (11:36)
--- NOTE | 2019-01-08 11:38 | Internal Med Progress Note ---
Medical - PN: Subj Patient information: Note initiated : 01/08/19 at 11:36 am Service Date, if different from initiated Date: [] Patient: Fiorella Leon a 78 y/o F admitted on 01/02/19 for Shoulder pain, Change in LOC. Chief Complaint: [] Interval history: Ms. Leon is a 78 year old F who presents to the emergency department brought in by her with concerns of confusion. Apparently she had not been doing well for the last few days, however was just seen here yesterday with main complaint of left shoulder pain and was diagnosed with muscle spasm. She was prescribed Flexeril, it is unclear if she is taking many of those tablets. She reports back to the ED with her quite confused. Apparently she did not follow much conversation and could not give much history upon arrival though did improve after fluids. Evaluation in the emergency department shows evidence of urinary tract infection with sepsis, white count of 20 and encephalopathy. Location: Systemic; timing: Onset 1 to 2 days ago; severity: Moderate; associated symptoms: As in review of systems. Patient felt feverish last evening, she felt chilled but did not have shaking chills. She occasionally has a headache, but none currently. No neck pain or stiffness. She had some mild nausea this morning but no emesis. She is had no abdominal pain. She has had no diarrhea. She has had some dysuria. In the emergency department, the patient is also noted to be extremely hypertensive with systolic blood pressures in the 200s and diastolics in the 110's. Patient was trying to describe that she had had a hypertensive reaction to a treatment for her glaucoma but is still little confused and cannot really provide details. According to her , her blood pressure may have been high for a while but she has never been treated for hypertension. She is now being admitted for treatment of sepsis from urinary source. 01/03-seen at bedside with her and nursing. She is less confused this afternoon and is starting to feel better. Blood cultures are positive for gram- positive cocci in both sets. Urine culture is without growth. Vancomycin added to regimen. Patient really had not been having fevers chills. She has been feeling poorly for a few days prior to presenting to the hospital however. She does have some wounds in the lower legs where she has scratched at areas of eczema. 2continues to improve. Mentation seems back to normal. Did have episode of chest tightness this morning, she is noted similar episodes in the past. Occurred at rest. She had had systolic blood pressure in the 200 range, had received hydralazine the time of onset with blood pressure down to the 140s. Cultures have identified pansensitive Staphylococcus aureus. Discussed with infectious disease, echo is ordered, will also obtain CT of the chest as well as the left shoulder where she has been having some pain. eveloped some dyspnea just about midnight. Also had low-grade fever. Received acetaminophen and breathing treatment. Also received 20 mg of Lasix with significant improvement in dyspnea. Feel little more dyspneic this morning as well. Review of intake/output shows she is about 6 L positive. Discussed with Dr. Vuong for infectious disease. CT scan images reviewed with him. For mal report now shows probable abscess in the left upper lung region extrapleural space. Still with left shoulder pain, query if it is related to the abscess. 01/06-patient feels a lot better since admission. at bedside. Discussed blood cultures/imaging findings and treatment plan. Abscess drainage scheduled for 2 PM. Surveillance cultures from 01/04+ for gram-positive cocci. MSSA on ini tial cultures. On IV cefazolin as per ID. ID recommends transesophageal echocardiogram as outpatient. Continuing antibiotic coverage. White count down from 20,200-12.6. Potassium improved from 2.8-3.3. UA pyuria. Remains afebrile. 01/07-pansensitive staph aureus currently on cefazolin. ID recommends at least 4 weeks antibiotics. Potassium 3.1 on replacement. White count 12.3. Will require outpatient transesophageal echocardiogram. Surveillance blood cultures negative so far. 01/08-patient doing well. No overnight events. Drain output over 30 cc left anterior chest. Pansensitive staph aureus. Surveillance cultures from 01/06- so far. Continuing IV antibiotics as per id. PICC line placement today. No overnight fever chills. White count 11.4. Potassium 3.6, phosphorus up to 2.5 - Constitutional Vitals: Vital Signs Temp Pulse Resp BP Pulse Ox 97.5 F 72 16 160/61 90 01/08/19 08:00 01/08/19 03:54 01/08/19 08:00 01/08/19 08:00 01/08/19 08:00 Period Temp Pulse Resp BP Sys/Mccullough Pulse Ox Last 24 Hr 97.5 F-98.8 F 67-78 16-20 138-182/61-70 90-92 Intake and Output 01/07/19 01/08/19 01/08/19 21:59 05:59 13:59 Intake Total 1220 220 360 Output Total 1059 718 Balance 161 -498 360 Weight 175 lb 9.6 oz Intake & Output: Intake & Output 01/07/19 01/08/19 01/08/19 21:59 05:59 13:59 Intake Total 1220 220 360 Output Total 1059 718 Balance 161 -498 360 Weight 175 lb 9.6 oz Intake: Oral 1200 200 360 Input, Drain Irrigation Amount 20 20 Left Upper T-Tube 20 20 Output: Drainage 59 68 Left Upper T-Tube 59 68 Void Amount 1000 650 Other: Meal Dinner Breakfast Percent of Meal Consumed 75% 100% Feeding Ability Assist with Tray Set Up Independent Urine Color Pale Bright Yellow Urine Odor Normal Stool Size Small Stool Color Brown Stool Consistency Soft # Bowel Movements 1 General appearance: no acute distress Exam: Alert oriented Nonlabored breathing Diminished breath sounds bases Drain left anterior chest serosanguineous drainage 30 cc last 24 hours No lymphedema Medical - PN: Obj Da - Labs CBC & Chem 7: 01/08/19 04:15 01/08/19 04:15 Labs: Abnormal Lab Results 01/08/19 01/08/19 01/07/19 04:15 04:15 04:40 WBC 11.4 H RBC Hgb 11.6 L Hct MPV Gran % Lymph % (Auto) 10.7 L [place] % (Auto) 15.9 H Gran # 8.1 H Lymph # (Auto) 1.2 L [place] # (Auto) 1.8 H Potassium 3.1 L Chloride 94 L 94 L BUN 7 L Glucose 120 H 120 H Phosphorus 2.5 L 2.2 L Lactate Dehydrogenase 256 H Albumin 2.8 L 2.6 L Globulin 4.4 H 4.2 H Albumin/Globulin Ratio 0.6 L 0.6 L 01/07/19 01/06/19 01/06/19 04:40 06:28 06:28 WBC 12.3 H 12.6 H RBC 3.90 L Hgb 11.1 L Hct 33.7 L MPV 10.5 H Gran % 79.3 H Lymph % (Auto) 9.3 L 6.4 L [place] % (Auto) 13.9 H 12.6 H Gran # 9.3 H 10.0 H Lymph # (Auto) 1.1 L 0.8 L [place] # (Auto) 1.7 H 1.6 H Potassium Chloride BUN 6 L Glucose 115 H Phosphorus 1.6 L Lactate Dehydrogenase 365 H Albumin 2.8 L Globulin 4.6 H Albumin/Globulin Ratio 0.6 L Meds: Medications Acetaminophen (Tylenol) 650 mg PO Q6HP PRN PRN Reason: PAIN/FEVER > 101 Last Admin: 01/06/19 18:38 Dose: 650 mg Documented by: Albuterol/Ipratropium (Duoneb) 3 ml NEB Q4HP PRN PRN Reason: Shortness Of Breath Or Wheezing Last Admin: 01/07/19 11:54 Dose: 3 ml Documented by: Amlodipine Besylate (Norvasc) 10 mg PO DAILY [facility] Last Admin: 01/08/19 08:14 Dose: 10 mg Documented by: Bisacodyl (Dulcolax) 10 mg PO DAILYP PRN PRN Reason: Constipation Cefazolin Sodium (Ancef) 2 gm IV Q8H [facility]; Protocol Last Admin: 01/08/19 05:41 Dose: 2 gm Documented by: Enoxaparin Sodium (Lovenox) 40 mg SQ DAILY [facility] Last Admin: 01/08/19 08:15 Dose: 40 mg Documented by: Fentanyl (Sublimaze) 0 mcg IV PRN PRN PRN Reason: conscious sedation Last Admin: 01/06/19 14:30 Dose: 25 mcg Documented by: Furosemide (Lasix) 20 mg IV DAILY [facility] Last Admin: 01/08/19 08:18 Dose: 20 mg Documented by: Hydralazine HCl (Apresoline) 10 mg IV Q4-6HP PRN PRN Reason: Hypertension Last Admin: 01/04/19 23:57 Dose: 10 mg Documented by: Magnesium Sulfate (Magnesium Sulfate) 2 gm in 50 mls @ 50 mls/hr IV UD PRN PRN Reason: Mag < or = 1.7 Ketorolac Tromethamine (Ketorolac Tromethamine) 0 ml OP BID [facility] Last Admin: 01/08/19 08:19 Dose: Not Given Documented by: Latanoprost (Xalatan Ophth Drops) 1 gtt OU HS [facility] Last Admin: 01/07/19 20:12 Dose: 1 gtt Documented by: Lisinopril (Zestril) 5 mg PO HS [facility] Last Admin: 01/07/19 20:02 Dose: 5 mg Documented by: Magnesium Hydroxide (Milk Of Magnesia) 30 ml PO DAILYP PRN PRN Reason: Constipation Midazolam HCl (Versed) 0 mg IV PRN PRN PRN Reason: conscious sedation Last Admin: 01/06/19 14:30 Dose: 0.5 mg Documented by: Mupirocin (Bactroban Oint 2%) 1 dose NARES BID [facility] Last Admin: 01/08/19 08:16 Dose: 1 dose Documented by: Ondansetron HCl (Zofran) 4 mg IV Q4HP PRN PRN Reason: Nausea And Vomiting Pantoprazole Sodium (Protonix) 40 mg PO QAMAC [facility] Last Admin: 01/08/19 08:16 Dose: 40 mg Documented by: Potassium Chloride (Potassium Chloride) 15 meq PT BIDCC [facility] Last Admin: 01/08/19 08:16 Dose: 15 meq Documented by: Potassium/Phosphorus/Sodium (Neutra Phos) 2 packet PO BID [facility] Stop: 01/09/19 09:01 Last Admin: 01/08/19 08:17 Dose: 2 packet Documented by: Sodium Chloride (Saline Flush) 10 ml IV Q8 [facility] Last Admin: 01/08/19 05:41 Dose: 10 ml Documented by: Timolol Maleate (Timoptic 0.5% Ophth Drops) 1 gtt OU BID [facility] Last Admin: 01/08/19 08:19 Dose: 1 gtt Documented by: Tramadol HCl (Ultram) 50 mg PO Q4HP PRN PRN Reason: Pain Last Admin: 01/08/19 04:34 Dose: 50 mg Documented by: Medical - PN: A/P - Time Spent With Patient Total time spent is greater than 50% in coordination of care (as documented) at patient's floor/unit and/or counseling patient: 25 - 35 minutes - Narrative A/P Narrative: * Sepsis secondary to Staphylococcus aureus bacteremia. White count downtrending to 11,000. On IV cefazolin as per ID. Likely 4 weeks treatment as per ID * Left upper lung abscess. Status post CT-guided drain placement. 30 cc output last 24 hours * MSSA bacteremia, surveillance cultures since 01/[address] PICC line today for continued IV antibiotics * Low phosphorus resolved with replacement * Hypokalemia resolved with replacement * Acute cystitis. Clinically resolved * Encephalopathy clinically resolved * Hypertensive urgency, resolved . Continue amlodipine 10mg/JORDAN inhibitor/as needed hydralazine. 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 * Prophylaxis heparin * DNR Plan * Continue IV antibiotics as per ID * PICC line placement * Continue chest drain care * Ordered transesophageal echocardiogram to be scheduled as outpatient on discharge * Prior medical condition management as above * Discharge planning per case management for long-term antibiotic after PICC line placement
--- NOTE | 2019-01-08 13:38 | Non-GYN Cytology Report ---
NON TAPER/FINISHER SPECIMEN NG DX CATEGORY Negative MICROSCOPIC DIAGNOSIS LUNG, LEFT ABSCESS, FINE NEEDLE ASPIRATION: -- NECROINFLAMMATORY DEBRIS WITH BACTERIAL COCCI, COMPATIBLE WITH ABSCESS, SEE COMMENT. -- NO ATYPICAL OR MALIGNANT CELLS IDENTIFIED. (RLF:tejinder) COMMENT: Recommend correlation with microbiologic studies. MICROSCOPIC DESCRIPTION Thinprep, cytospin and cell block slides are examined and demonstrate numerous neutrophils, a few squamous epithelial cells, acellular debris and bacterial cocci. No atypical or malignant cells are identified. (RLF:tejinder) EXTERNAL COMMENT ~5 mL cloudy, viscous yellow-brown fluid: 1 thinprep, 1 H/E, 1 Diff Quik, 1 cell block Electronically Signed by: Sandra Mendoza M.D.
--- NOTE | 2019-01-08 14:55 | XRay Report ---
CLINICAL INFORMATION: PICC PLACEMENT COMPARISON: 01/02/2019 FINDINGS: Moderate cardiomegaly unchanged. Mediastinum and pulmonary vessels are unremarkable. Left PICC line tip is positioned over the tricuspid valve plane. Pigtail catheter overlies the central aspect of 8 cm extrapleural abscess in the left lung apex. Small left pleural effusion noted IMPRESSION: 1. Malpositioned PICC line over the tricuspid valve plane. Nurse instructed to withdraw 5 cm. 2. Pigtail catheter overlying 8 cm extrapleural abscess left lung apex. Small left basilar infiltrate atelectasis effusion Interpreted and Authenticated by: Amrit Gasca 01/08/19
--- NOTE | 2019-01-08 15:15 | Internal Med Progress Note ---
Medical - PN: Subj Patient information: Note initiated : 01/08/19 at 3:03 pm Service Date, if different from initiated Date: [] Patient: Fiorella Leon a 78 y/o F admitted on 01/02/19 for Shoulder pain, Change in LOC. Chief Complaint: [] Interval history: Ms. Leon is a 78 year old F who presents to the emergency department brought in by her with concerns of confusion. Apparently she had not been doing well for the last few days, however was just seen here yesterday with main complaint of left shoulder pain and was diagnosed with muscle spasm. She was prescribed Flexeril, it is unclear if she is taking many of those tablets. She reports back to the ED with her quite confused. Apparently she did not follow much conversation and could not give much history upon arrival though did improve after fluids. Evaluation in the emergency department shows evidence of urinary tract infection with sepsis, white count of 20 and encephalopathy. Location: Systemic; timing: Onset 1 to 2 days ago; severity: Moderate; associated symptoms: As in review of systems. Patient felt feverish last evening, she felt chilled but did not have shaking chills. She occasionally has a headache, but none currently. No neck pain or stiffness. She had some mild nausea this morning but no emesis. She is had no abdominal pain. She has had no diarrhea. She has had some dysuria. In the emergency department, the patient is also noted to be extremely hypertensive with systolic blood pressures in the 200s and diastolics in the 110's. Patient was trying to describe that she had had a hypertensive reaction to a treatment for her glaucoma but is still little confused and cannot really provide details. According to her , her blood pressure may have been high for a while but she has never been treated for hypertension. She is now being admitted for treatment of sepsis from urinary source. 01/03-seen at bedside with her and nursing. She is less confused this afternoon and is starting to feel better. Blood cultures are positive for gram- positive cocci in both sets. Urine culture is without growth. Vancomycin added to regimen. Patient really had not been having fevers chills. She has been feeling poorly for a few days prior to presenting to the hospital however. She does have some wounds in the lower legs where she has scratched at areas of eczema. 2continues to improve. Mentation seems back to normal. Did have episode of chest tightness this morning, she is noted similar episodes in the past. Occurred at rest. She had had systolic blood pressure in the 200 range, had received hydralazine the time of onset with blood pressure down to the 140s. Cultures have identified pansensitive Staphylococcus aureus. Discussed with infectious disease, echo is ordered, will also obtain CT of the chest as well as the left shoulder where she has been having some pain. eveloped some dyspnea just about midnight. Also had low-grade fever. Received acetaminophen and breathing treatment. Also received 20 mg of Lasix with significant improvement in dyspnea. Feel little more dyspneic this morning as well. Review of intake/output shows she is about 6 L positive. Discussed with Dr. Vuong for infectious disease. CT scan images reviewed with him. Form al report now shows probable abscess in the left upper lung region extrapleural space. Still with left shoulder pain, query if it is related to the abscess. 01/06-patient feels a lot better since admission. at bedside. Discussed blood cultures/imaging findings and treatment plan. Abscess drainage scheduled for 2 PM. Surveillance cultures from 01/04+ for gram-positive cocci. MSSA on initial cultures. On IV cefazolin as per ID. ID recommends transesophageal echocardiogram as outpatient. Continuing antibiotic coverage. White count down from 20,200-12.6. Potassium improved from 2.8-3.3. UA pyuria. Remains afebrile. 01/07-pansensitive staph aureus currently on cefazolin. ID recommends at least 4 weeks antibiotics. Potassium 3.1 on replacement. White count 12.3. Will require outpatient transesophageal echocardiogram. Surveillance blood cultures negative so far. 01/08-patient doing well. No overnight events. Drain output over 30 cc left anterior chest. Pansensitive staph aureus. Surveillance cultures from 01/06- so far. Continuing IV antibiotics as per id. PICC line placement today. No overnight fever chills. White count 11.4. Potassium 3.6, phosphorus up to 2.5 01/09 - Constitutional Vitals: Vital Signs Temp Pulse Resp BP Pulse Ox 98.2 F 72 20 133/60 92 01/08/19 12:00 01/08/19 03:54 01/08/19 12:00 01/08/19 12:00 01/08/19 12:00 Period Temp Pulse Resp BP Sys/Mccullough Pulse Ox Last 24 Hr 97.5 F-98.8 F 72-78 16-20 133-182/60-70 90-92 Intake and Output 01/08/19 01/08/19 01/08/19 05:59 13:59 21:59 Intake Total 220 560 Output Total 718 240 Balance -498 320 Intake & Output: Intake & Output 01/08/19 01/08/19 01/08/19 05:59 13:59 21:59 Intake Total 220 560 Output Total 718 240 Balance -498 320 Intake: Oral 200 560 Input, Drain Irrigation Amount 20 Left Upper T-Tube 20 Output: Drainage 68 40 Left Upper T-Tube 68 40 Void Amount 650 200 Other: Meal Breakfast Percent of Meal Consumed 100% Feeding Ability Independent Urine Color Bright Yellow Stool Size Moderate Stool Color Brown Stool Consistency Soft Formed # Voids 1 # Bowel Movements 1 Exam: General: Alert, Awake, No acute Distress Eyes/N/T: EOMI, Head/Neck: neck supple, CV: RRR, No murmurs, Pulm: , chest tube in place Abd: soft, nontender, +BS x4 Ext: no clubbing/cyanosis/edema Neuro: Alert, no focal deficits, moves all extremities, Skin: warm/dry Medical - PN: Obj Da - Labs CBC & Chem 7: 01/08/19 04:15 01/08/19 04:15 Labs: Abnormal Lab Results 01/08/19 01/08/19 01/07/19 04:15 04:15 04:40 WBC 11.4 H RBC Hgb 11.6 L Hct MPV Gran % Lymph % (Auto) 10.7 L [place] % (Auto) 15.9 H Gran # 8.1 H Lymph # (Auto) 1.2 L [place] # (Auto) 1.8 H Potassium 3.1 L Chloride 94 L 94 L BUN 7 L Glucose 120 H 120 H Phosphorus 2.5 L 2.2 L Lactate Dehydrogenase 256 H Albumin 2.8 L 2.6 L Globulin 4.4 H 4.2 H Albumin/Globulin Ratio 0.6 L 0.6 L 01/07/19 01/06/19 01/06/19 04:40 06:28 06:28 WBC 12.3 H 12.6 H RBC 3.90 L Hgb 11.1 L Hct 33.7 L MPV 10.5 H Gran % 79.3 H Lymph % (Auto) 9.3 L 6.4 L [place] % (Auto) 13.9 H 12.6 H Gran # 9.3 H 10.0 H Lymph # (Auto) 1.1 L 0.8 L [place] # (Auto) 1.7 H 1.6 H Potassium Chloride BUN 6 L Glucose 115 H Phosphorus 1.6 L Lactate Dehydrogenase 365 H Albumin 2.8 L Globulin 4.6 H Albumin/Globulin Ratio 0.6 L Meds: Medications Acetaminophen (Tylenol) 650 mg PO Q6HP PRN PRN Reason: PAIN/FEVER > 101 Last Admin: 01/06/19 18:38 Dose: 650 mg Documented by: Albuterol/Ipratropium (Duoneb) 3 ml NEB Q4HP PRN PRN Reason: Shortness Of Breath Or Wheezing Last Admin: 01/07/19 11:54 Dose: 3 ml Documented by: Amlodipine Besylate (Norvasc) 10 mg PO DAILY [facility] Last Admin: 01/08/19 08:14 Dose: 10 mg Documented by: Bisacodyl (Dulcolax) 10 mg PO DAILYP PRN PRN Reason: Constipation Cefazolin Sodium (Ancef) 2 gm IV Q8H [facility]; Protocol Last Admin: 01/08/19 13:52 Dose: 2 gm Documented by: Enoxaparin Sodium (Lovenox) 40 mg SQ DAILY [facility] Last Admin: 01/08/19 08:15 Dose: 40 mg Documented by: Fentanyl (Sublimaze) 0 mcg IV PRN PRN PRN Reason: conscious sedation Last Admin: 01/06/19 14:30 Dose: 25 mcg Documented by: Furosemide (Lasix) 20 mg IV DAILY [facility] Last Admin: 01/08/19 08:18 Dose: 20 mg Documented by: Heparin Sodium (Porcine) (Heparin Flush) 2 ml IV Q12 [facility] Hydralazine HCl (Apresoline) 10 mg IV Q4-6HP PRN PRN Reason: Hypertension Last Admin: 01/04/19 23:57 Dose: 10 mg Documented by: Magnesium Sulfate (Magnesium Sulfate) 2 gm in 50 mls @ 50 mls/hr IV UD PRN PRN Reason: Mag < or = 1.7 Ketorolac Tromethamine (Ketorolac Tromethamine) 0 ml OP BID [facility] Last Admin: 01/08/19 08:19 Dose: Not Given Documented by: Latanoprost (Xalatan Ophth Drops) 1 gtt OU HS [facility] Last Admin: 01/07/19 20:12 Dose: 1 gtt Documented by: Lisinopril (Zestril) 5 mg PO HS [facility] Last Admin: 01/07/19 20:02 Dose: 5 mg Documented by: Magnesium Hydroxide (Milk Of Magnesia) 30 ml PO DAILYP PRN PRN Reason: Constipation Midazolam HCl (Versed) 0 mg IV PRN PRN PRN Reason: conscious sedation Last Admin: 01/06/19 14:30 Dose: 0.5 mg Documented by: Mupirocin (Bactroban Oint 2%) 1 dose NARES BID [facility] Last Admin: 01/08/19 08:16 Dose: 1 dose Documented by: Ondansetron HCl (Zofran) 4 mg IV Q4HP PRN PRN Reason: Nausea And Vomiting Pantoprazole Sodium (Protonix) 40 mg PO QAMAC [facility] Last Admin: 01/08/19 08:16 Dose: 40 mg Documented by: Potassium Chloride (Potassium Chloride) 15 meq PT BIDCC [facility] Last Admin: 01/08/19 08:16 Dose: 15 meq Documented by: Potassium/Phosphorus/Sodium (Neutra Phos) 2 packet PO BID [facility] Stop: 01/09/19 09:01 Last Admin: 01/08/19 08:17 Dose: 2 packet Documented by: Sodium Chloride (Saline Flush) 10 ml IV Q8 [facility] Last Admin: 01/08/19 13:52 Dose: 10 ml Documented by: Sodium Chloride (Saline Flush) 10 ml IV UD PRN PRN Reason: FLUSH Sodium Chloride (Saline Flush) 10 ml IV Q12 [facility] Timolol Maleate (Timoptic 0.5% Ophth Drops) 1 gtt OU BID [facility] Last Admin: 01/08/19 08:19 Dose: 1 gtt Documented by: Tramadol HCl (Ultram) 50 mg PO Q4HP PRN PRN Reason: Pain Last Admin: 01/08/19 13:52 Dose: 50 mg Documented by: Medical - PN: A/P - Time Spent With Patient Total time spent is greater than 50% in coordination of care (as documented) at patient's floor/unit and/or counseling patient: - Narrative A/P Narrative: A: *Sepsis: 2/2 MSSA bacteremia -WBC improving *JUANA abscess: s/p CT-guided drain placement -30 cc output last 24 hours *MSSA bacteremia -surveillance cultures since 01/04 negative -no vegetations noted on TTE *Hypophos/Ovi: improved *Acute cystitis. Clinically resolved *Encephalopathy: 2/2 sepsis *HTN urgency: resolved *h/o CVA: old lacunar infarct noted on CT Plan: -Continue IV antibiotics as per ID, on cefazolin, Likely 4 weeks treatment as per ID -PICC line placement -Continue chest drain care, Rads following -f/u CT chest on friday if continues to drain -Ordered transesophageal echocardiogram to be scheduled as outpatient on discharge -Continue amlodipine 10mg/JORDAN inhibitor/as needed hydralazine. -Replete electrolytes -Discharge planning per case management for long-term antibiotic - -ppx: heparin DNR:
[2019-01-08] MEDS: ACETAMINOPHEN 325 MG TABLET PO PRN (16:52)
--- NOTE | 2019-01-08 18:38 | Infectious Disease Prog Note ---
Subjective Patient information: Note initiated : 01/08/19 at 6:19 pm Service Date, if different from initiated Date: [] Patient: Fiorella Leon 78 y/o F admitted on 01/02/19 for Shoulder pain, Change in LOC. Chief Complaint: [] Interval history: Pt sitting in chair. Feels better. Denied any fever, chills, n/v/diarrhea/SOB. Objective Objective Narrative: ao x 3, in nad no thrush chest has bronchial breath sounds over right side of chest, rest VBS s1 s2 normal bs ++ nttd - Vital Signs Vital signs: Vital Signs Temp Pulse Resp BP Pulse Ox 01/08/19 16:00 37.2 C 16 148/66 91 01/08/19 12:00 36.8 C 20 133/60 92 01/08/19 08:00 36.4 C 16 160/61 90 01/08/19 03:54 36.8 C 72 16 138/66 91 01/07/19 23:58 36.6 C 75 20 148/64 90 01/07/19 19:08 36.7 C 78 16 149/67 90 Intake and Output 01/08/19 01/08/19 01/08/19 05:59 13:59 21:59 Intake Total 220 560 Output Total 718 240 13 Balance -498 320 -13 Intake: Oral 200 560 Input, Drain Irrigation Amount 20 Left Upper T-Tube 20 Output: Drainage 68 40 13 Left Upper T-Tube 68 40 13 Void Amount 650 200 Other: Meal Breakfast Percent of Meal Consumed 100% Feeding Ability Independent Urine Color Bright Yellow Stool Size Moderate Stool Color Brown Stool Consistency Soft Formed # Voids 1 1 # Bowel Movements 1 Intake & Output: Intake & Output 01/08/19 01/08/19 01/08/19 05:59 13:59 21:59 Intake Total 220 560 Output Total 718 240 13 Balance -498 320 -13 Intake: Oral 200 560 Input, Drain Irrigation Amount 20 Left Upper T-Tube 20 Output: Drainage 68 40 13 Left Upper T-Tube 68 40 13 Void Amount 650 200 Other: Meal Breakfast Percent of Meal Consumed 100% Feeding Ability Independent Urine Color Bright Yellow Stool Size Moderate Stool Color Brown Stool Consistency Soft Formed # Voids 1 1 # Bowel Movements 1 - Lab 01/08/19 04:15 01/08/19 04:15 Most recent lab results Calcium 8.7 mg/dl (8.6-10.4) 01/08/19 04:15 Phosphorus 2.5 mg/dL (2.7-4.5) L 01/08/19 04:15 Magnesium 2.0 mg/dL (1.6-2.5) 01/08/19 04:15 Microbiology 01/04/19 15:36 Blood Blood Culture - Preliminary 01/06/19 09:18 Blood Blood Culture - Preliminary 01/06/19 09:41 Blood Blood Culture - Preliminary 01/04/19 14:27 Blood Blood Culture - Preliminary Staphylococcus aureus 01/02/19 17:00 Blood Blood Culture - Final Staphylococcus aureus 01/02/19 16:40 Urine - Clean Void Mid-Stream Urine Culture - Final 01/02/19 15:23 Blood Blood Culture - Final Staphylococcus aureus 01/04/19 03:52 Nose MRSA (PCR) - Final Medications Active Medications: Acetaminophen (Tylenol) 650 mg PO Q6HP PRN PRN Reason: PAIN/FEVER > 101 Last Admin: 01/08/19 16:52 Dose: 650 mg Documented by: Admin: 01/06/19 18:38 Dose: 650 mg Documented by: Admin: 01/04/19 23:56 Dose: 650 mg Documented by: LAURA Albuterol/Ipratropium (Duoneb) 3 ml NEB Q4HP PRN PRN Reason: Shortness Of Breath Or Wheezing Last Admin: 01/07/19 11:54 Dose: 3 ml Documented by: [email or web address] Admin: 01/06/19 05:35 Dose: 3 ml Documented by: Admin: 01/04/19 23:56 Dose: 3 ml Documented by: LAURA Amlodipine Besylate (Norvasc) 10 mg PO DAILY [facility] Last Admin: 01/08/19 08:14 Dose: 10 mg Documented by: Admin: 01/07/19 09:51 Dose: 10 mg Documented by: Admin: 01/06/19 09:57 Dose: Not Given Documented by: NICANOR Non-Admin Reason: NPO Admin: 01/05/19 09:44 Dose: 10 mg Documented by: INCANOR Bisacodyl (Dulcolax) 10 mg PO DAILYP PRN PRN Reason: Constipation Cefazolin Sodium (Ancef) 2 gm IV Q8H [facility]; Protocol Last Admin: 01/08/19 13:52 Dose: 2 gm Documented by: Admin: 01/08/19 05:41 Dose: 2 gm Documented by: Admin: 01/07/19 21:38 Dose: 2 gm Documented by: Admin: 01/07/19 14:03 Dose: 2 gm Documented by: Admin: 01/07/19 05:30 Dose: 2 gm Documented by: Admin: 01/06/19 21:14 Dose: 2 gm Documented by: Admin: 01/06/19 15:38 Dose: 2 gm Documented by: Admin: 01/06/19 05:21 Dose: 2 gm Documented by: Admin: 01/05/19 21:16 Dose: 2 gm Documented by: Admin: 01/05/19 17:06 Dose: 2 gm Documented by: Admin: 01/05/19 05:31 Dose: 2 gm Documented by: Admin: 01/04/19 21:02 Dose: 2 gm Documented by: LAURA Enoxaparin Sodium (Lovenox) 40 mg SQ DAILY [facility] Last Admin: 01/08/19 08:15 Dose: 40 mg Documented by: Admin: 01/07/19 09:52 Dose: 40 mg Documented by: Admin: 01/06/19 10:10 Dose: 40 mg Documented by: Admin: 01/05/19 09:44 Dose: 40 mg Documented by: NICANOR Fentanyl (Sublimaze) 0 mcg IV PRN PRN PRN Reason: conscious sedation Last Admin: 01/06/19 14:30 Dose: 25 mcg Documented by: JESSA Comments: 1430--25mcg given per MD Furosemide (Lasix) 20 mg IV DAILY [facility] Last Admin: 01/08/19 08:18 Dose: 20 mg Documented by: Admin: 01/07/19 09:51 Dose: 20 mg Documented by: Admin: 01/06/19 10:10 Dose: 20 mg Documented by: NICANOR Heparin Sodium (Porcine) (Heparin Flush) 2 ml IV Q12 [facility] Hydralazine HCl (Apresoline) 10 mg IV Q4-6HP PRN PRN Reason: Hypertension Last Admin: 01/04/19 23:57 Dose: 10 mg Documented by: Admin: 01/04/19 19:29 Dose: 10 mg Documented by: LAURA Magnesium Sulfate (Magnesium Sulfate) 2 gm in 50 mls @ 50 mls/hr IV UD PRN PRN Reason: Mag < or = 1.7 Ketorolac Tromethamine (Ketorolac Tromethamine) 0 ml OP BID [facility] Last Admin: 01/08/19 08:19 Dose: Not Given Documented by: KELLY Non-Admin Reason: Patient Refused Admin: 01/07/19 20:11 Dose: Not Given Documented by: SERENE Non-Admin Reason: Patient Refused Admin: 01/07/19 09:53 Dose: 3 ml Documented by: Admin: 01/06/19 21:16 Dose: 1 ml Documented by: Admin: 01/06/19 10:10 Dose: 3 ml Documented by: Admin: 01/05/19 21:19 Dose: Not Given Documented by: NICK Non-Admin Reason: Patient Refused Admin: 01/05/19 10:14 Dose: 1 ml Documented by: NICANOR Comments: Would not scan Admin: 01/04/19 21:04 Dose: 1 ml Documented by: LAURA Comments: barcode unable to scan for all eye medications Latanoprost (Xalatan Ophth Drops) 1 gtt OU HS [facility] Last Admin: 01/07/19 20:12 Dose: 1 gtt Documented by: Admin: 01/06/19 21:17 Dose: 1 gtt Documented by: Admin: 01/05/19 21:19 Dose: 1 gtt Documented by: Admin: 01/04/19 21:04 Dose: 1 gtt Documented by: LAURA Lisinopril (Zestril) 5 mg PO HS [facility] Last Admin: 01/07/19 20:02 Dose: 5 mg Documented by: Admin: 01/06/19 21:13 Dose: 5 mg Documented by: Admin: 01/05/19 21:16 Dose: 5 mg Documented by: Admin: 01/04/19 21:03 Dose: 5 mg Documented by: LAURA Magnesium Hydroxide (Milk Of Magnesia) 30 ml PO DAILYP PRN PRN Reason: Constipation Midazolam HCl (Versed) 0 mg IV PRN PRN PRN Reason: conscious sedation Last Admin: 01/06/19 14:30 Dose: 0.5 mg Documented by: JESSA Comments: 1430--0.5mg given per MD Mupirocin (Bactroban Oint 2%) 1 dose NARES BID [facility] Last Admin: 01/08/19 08:16 Dose: 1 dose Documented by: Admin: 01/07/19 20:11 Dose: 1 dose Documented by: Admin: 01/07/19 09:52 Dose: 1 dose Documented by: Admin: 01/06/19 21:14 Dose: 1 dose Documented by: Admin: 01/06/19 10:08 Dose: 1 dose Documented by: Admin: 01/05/19 21:18 Dose: 1 dose Documented by: Admin: 01/05/19 09:45 Dose: 1 dose Documented by: Admin: 01/04/19 21:06 Dose: 1 dose Documented by: LAURA Comments: barcode not scanning - saying discontinued Ondansetron HCl (Zofran) 4 mg IV Q4HP PRN PRN Reason: Nausea And Vomiting Pantoprazole Sodium (Protonix) 40 mg PO QAMAC [facility] Last Admin: 01/08/19 08:16 Dose: 40 mg Documented by: Admin: 01/07/19 07:24 Dose: 40 mg Documented by: Admin: 01/06/19 09:57 Dose: Not Given Documented by: NICANOR Non-Admin Reason: NPO Admin: 01/05/19 09:45 Dose: 40 mg Documented by: NICANOR Potassium Chloride (Potassium Chloride) 15 meq PT BIDCC [facility] Last Admin: 01/08/19 16:52 Dose: 15 meq Documented by: Admin: 01/08/19 08:16 Dose: 15 meq Documented by: Admin: 01/07/19 17:53 Dose: 15 meq Documented by: HOPE Potassium/Phosphorus/Sodium (Neutra Phos) 2 packet PO BID [facility] Stop: 01/09/19 09:01 Last Admin: 01/08/19 08:17 Dose: 2 packet Documented by: Admin: 01/07/19 20:01 Dose: 2 packet Documented by: SERENE Sodium Chloride (Saline Flush) 10 ml IV Q8 [facility] Last Admin: 01/08/19 13:52 Dose: 10 ml Documented by: Admin: 01/08/19 05:41 Dose: 10 ml Documented by: Admin: 01/07/19 21:39 Dose: 10 ml Documented by: Admin: 01/07/19 14:04 Dose: 10 ml Documented by: Admin: 01/07/19 05:30 Dose: 10 ml Documented by: Admin: 01/06/19 21:18 Dose: 10 ml Documented by: Admin: 01/06/19 15:38 Dose: 10 ml Documented by: Admin: 01/06/19 05:22 Dose: 10 ml Documented by: Admin: 01/05/19 21:20 Dose: 10 ml Documented by: Admin: 01/05/19 17:06 Dose: 10 ml Documented by: Admin: 01/05/19 05:32 Dose: 10 ml Documented by: Admin: 01/04/19 21:02 Dose: 10 ml Documented by: LAURA Sodium Chloride (Saline Flush) 10 ml IV UD PRN PRN Reason: FLUSH Sodium Chloride (Saline Flush) 10 ml IV Q12 [facility] Timolol Maleate (Timoptic 0.5% Ophth Drops) 1 gtt OU BID [facility] Last Admin: 01/08/19 08:19 Dose: 1 gtt Documented by: Admin: 01/07/19 20:13 Dose: 1 gtt Documented by: Admin: 01/07/19 09:54 Dose: 1 gtt Documented by: Admin: 01/06/19 21:17 Dose: 1 gtt Documented by: Admin: 01/06/19 10:11 Dose: 1 gtt Documented by: NICANOR Comments: will not scan Admin: 01/05/19 21:20 Dose: 1 gtt Documented by: Admin: 01/05/19 10:15 Dose: 1 gtt Documented by: Admin: 01/04/19 21:04 Dose: 1 gtt Documented by: LAURA Tramadol HCl (Ultram) 50 mg PO Q4HP PRN PRN Reason: Pain Last Admin: 01/08/19 13:52 Dose: 50 mg Documented by: Admin: 01/08/19 04:34 Dose: 50 mg Documented by: Admin: 01/07/19 21:41 Dose: 50 mg Documented by: Admin: 01/07/19 17:53 Dose: 50 mg Documented by: Admin: 01/07/19 14:03 Dose: 50 mg Documented by: Admin: 01/06/19 15:52 Dose: 50 mg Documented by: Admin: 01/05/19 17:06 Dose: 50 mg Documented by: Admin: 01/05/19 00:08 Dose: 50 mg Documented by: LAURA Assessment and Plan - Narrative A/P Narrative: A: 1. MSSA bacteremia: 2/2 sets +ve on 01/02, 1/2 sets on 01/04 - likely source skin breakdown due to eczematous skin lesions over the legs - TTE report neg for any vegetations, mod MR 2. Left upper chest wall abscess (3 x 7 cm) - s/p IR guided drainage 01/06 - sec to seeding from MSSA bacteremia - growing MSSA on cultures Recommendations: - Continue IV Cefazolin 2 gm q8 hrs, day 3 - Consider PICC line placement today - will tentatively plan for a 4 week course with ID clinic f/u - continue decolonization protocol with 2% CHG wipes once daily x 5 days, day 09/06 - GABRIELA scheduled as OP - consider repeat CT chest on Friday. If there is minimal fluid, the catheter could be pulled out, otherwise she would need t-PA or DNAse to break down adhesions and continued drainage will follow Feliberto Vuong MD Infectious diseases
[2019-01-08] MEDS: LATANOPROST OPHTH DROPS 2.5ML BOTTLE OU SCH (21:27)
[2019-01-08] MEDS: LISINOPRIL 5 MG TABLET PO SCH (21:27)
[2019-01-09] MEDS: traMADol 50 MG TABLET PO PRN ×5 (02:54→23:09)
[2019-01-09] MEDS: ACETAMINOPHEN 325 MG TABLET PO PRN ×3 (03:35→21:15)
[2019-01-09] MEDS: 0.9 % SODIUM CHLORIDE 10 ML SYRINGE IV SCH ×5 (05:20→21:23)
[2019-01-09] MEDS: ceFAZolin 1 GM VIAL IV SCH ×3 (05:20→21:13)
[2019-01-09 06:37] LABS: Basophils # (Auto) 0 K/mcL (0.0-0.3); Basophils % (Auto) 0.6 % (0.0-2.0); Eosinophils # (Auto) 0.4 K/mcL (0.0-0.7); Eosinophils % (Auto) 4.8 % (0.0-7.0); Granulocytes % (Auto) 70.9 % (38.0-78.0); Hematocrit 32.7 % (36.0-48.0); Hemoglobin 10.7 g/dL (12.0-15.0); Lymphocytes # (Auto) 0.9 K/mcL (1.5-4.8); Lymphocytes % (Auto) 10.4 % (15.5-49.0); Mean Cell Volume 87.2 fL (80.0-100.0); Mean Corpuscular HGB Conc 32.8 g/dL (31.0-36.0); Mean Platelet Volume 9.5 fL (7.4-10.4); Monocytes # (Auto) 1.1 K/mcL (0.1-0.9); Monocytes % (Auto) 13.3 % (1.0-12.0); Platelet Count 300 K/mcL (140-440); RBC 3.74 M/mcL (4.00-5.20); Red Cell Distribution Width 13.7 % (11.5-14.5); WBC 8.5 K/mcL (4.5-11.0)
[2019-01-09 07:04] LABS: ALT/SGPT 12 U/l (0-40); AST/SGOT 25 U/l (0-37); Albumin 2.7 gm/dL (3.2-5.2); Albumin/Globulin Ratio 0.6 (1.0-2.3); Alkaline Phosphatase 66 U/L (39-117); Bilirubin,Direct < 0.2 mg/dL (0.0-0.3); Bilirubin,Total 0.2 mg/dL (0.0-1.0); Blood Urea Nitrogen 8 mg/dl (8-23); Calcium 8.3 mg/dl (8.6-10.4); Carbon Dioxide 29 mmol/L (22-30); Chloride 95 mmol/L (96-108); Globulin 4.3 gm/dL (2.2-3.7); Glomerular Filtration Rate 89; Glucose 114 mg/dL (70-105); Lactate Dehydrogenase 284 U/L (94-250); Phosphorous 2.7 mg/dL (2.7-4.5); Triglycerides 77 mg/dl (<150); Uric Acid 2.6 mg/dL (2.5-8.0)
--- NOTE | 2019-01-09 08:27 | Internal Med Progress Note ---
Medical - PN: Subj Patient information: Note initiated : 01/09/19 at 8:20 am Service Date, if different from initiated Date: [] Patient: Fiorella Leon a 78 y/o F admitted on 01/02/19 for Shoulder pain, Change in LOC. Chief Complaint: [] Interval history: Ms. Leon is a 78 year old F who presents to the emergency department brought in by her with concerns of confusion. Apparently she had not been doing well for the last few days, however was just seen here yesterday with main complaint of left shoulder pain and was diagnosed with muscle spasm. She was prescribed Flexeril, it is unclear if she is taking many of those tablets. She reports back to the ED with her quite confused. Apparently she did not follow much conversation and could not give much history upon arrival though did improve after fluids. Evaluation in the emergency department shows evidence of urinary tract infection with sepsis, white count of 20 and encephalopathy. Location: Systemic; timing: Onset 1 to 2 days ago; severity: Moderate; associated symptoms: As in review of systems. Patient felt feverish last evening, she felt chilled but did not have shaking chills. She occasionally has a headache, but none currently. No neck pain or stiffness. She had some mild nausea this morning but no emesis. She is had no abdominal pain. She has had no diarrhea. She has had some dysuria. In the emergency department, the patient is also noted to be extremely hypertensive with systolic blood pressures in the 200s and diastolics in the 110's. Patient was trying to describe that she had had a hypertensive reaction to a treatment for her glaucoma but is still little confused and cannot really provide details. According to her , her blood pressure may have been high for a while but she has never been treated for hypertension. She is now being admitted for treatment of sepsis from urinary source. 01/03-seen at bedside with her and nursing. She is less confused this afternoon and is starting to feel better. Blood cultures are positive for gram- positive cocci in both sets. Urine culture is without growth. Vancomycin added to regimen. Patient really had not been having fevers chills. She has been feeling poorly for a few days prior to presenting to the hospital however. She does have some wounds in the lower legs where she has scratched at areas of eczema. 2continues to improve. Mentation seems back to normal. Did have episode of chest tightness this morning, she is noted similar episodes in the past. Occurred at rest. She had had systolic blood pressure in the 200 range, had received hydralazine the time of onset with blood pressure down to the 140s. Cultures have identified pansensitive Staphylococcus aureus. Discussed with infectious disease, echo is ordered, will also obtain CT of the chest as well as the left shoulder where she has been having some pain. eveloped some dyspnea just about midnight. Also had low-grade fever. Received acetaminophen and breathing treatment. Also received 20 mg of Lasix with significant improvement in dyspnea. Feel little more dyspneic this morning as well. Review of intake/output shows she is about 6 L positive. Discussed with Dr. Vuong for infectious disease. CT scan images reviewed with him. Form al report now shows probable abscess in the left upper lung region extrapleural space. Still with left shoulder pain, query if it is related to the abscess. 01/06-patient feels a lot better since admission. at bedside. Discussed blood cultures/imaging findings and treatment plan. Abscess drainage scheduled for 2 PM. Surveillance cultures from 01/04+ for gram-positive cocci. MSSA on initial cultures. On IV cefazolin as per ID. ID recommends transesophageal echocardiogram as outpatient. Continuing antibiotic coverage. White count down from 20,200-12.6. Potassium improved from 2.8-3.3. UA pyuria. Remains afebrile. 01/07-pansensitive staph aureus currently on cefazolin. ID recommends at least 4 weeks antibiotics. Potassium 3.1 on replacement. White count 12.3. Will require outpatient transesophageal echocardiogram. Surveillance blood cultures negative so far. 01/08-patient doing well. No overnight events. Drain output over 30 cc left anterior chest. Pansensitive staph aureus. Surveillance cultures from 01/06- so far. Continuing IV antibiotics as per id. PICC line placement today. No overnight fever chills. White count 11.4. Potassium 3.6, phosphorus up to 2.5 01/09 Feeling better. No overnight events. No new complaints. Cough much improved. No real noticeable shortness of breath. Occasional headache Review of Systems: denies fever/chills/nausea/vomiting/chest or abdominal pain/diarrhea. Otherwise see above. - Constitutional Vitals: Vital Signs Temp Pulse Resp BP Pulse Ox 97.6 F 77 18 125/70 93 01/09/19 03:04 01/09/19 03:04 01/09/19 03:04 01/09/19 03:04 01/09/19 03:04 Period Temp Pulse Resp BP Sys/Mccullough Pulse Ox Last 24 Hr 97.6 F-98.9 F 64-77 16-20 121-157/60-70 91-93 Intake and Output 01/08/19 01/09/19 01/09/19 21:59 05:59 13:59 Intake Total 300 Output Total 413 230 Balance -413 70 Weight 82.418 kg Intake & Output: Intake & Output 01/08/19 01/09/19 01/09/19 21:59 05:59 13:59 Intake Total 300 Output Total 413 230 Balance -413 70 Weight 82.418 kg Intake: Oral 300 Output: Drainage 13 30 Left Upper T-Tube 13 30 Void Amount 400 200 Other: Urine Appearance Clear Clear Urine Color Bright Yellow Bright Yellow # Voids 1 Exam: General: Alert, Awake, No acute Distress Eyes/N/T: EOMI, Head/Neck: neck supple, CV: RRR, No murmurs, Pulm: Diminished left side with rhonchi, right clear. no wheezing. chest tube in place Abd: soft, nontender, +BS x4 Ext: no clubbing/cyanosis/edema Neuro: Alert, no focal deficits, moves all extremities, Skin: warm/dry Medical - PN: Obj Da - Labs CBC & Chem 7: 01/09/19 04:00 01/09/19 04:00 Labs: Abnormal Lab Results 01/09/19 01/09/19 01/08/19 04:00 04:00 04:15 WBC RBC 3.74 L Hgb 10.7 L Hct 32.7 L MPV Gran % Lymph % (Auto) 10.4 L Knox % (Auto) 13.3 H Gran # Lymph # (Auto) 0.9 L Knox # (Auto) 1.1 H Sodium 132 L Potassium Chloride 95 L 94 L BUN Glucose 114 H 120 H Calcium 8.3 L Phosphorus 2.5 L Lactate Dehydrogenase 284 H 256 H Albumin 2.7 L 2.8 L Globulin 4.3 H 4.4 H Albumin/Globulin Ratio 0.6 L 0.6 L 09/06/19 09/05/19 09/05/19 04:15 04:40 04:40 WBC 11.4 H 12.3 H RBC 3.90 L Hgb 11.6 L 11.1 L Hct 33.7 L MPV Gran % Lymph % (Auto) 10.7 L 9.3 L Knox % (Auto) 15.9 H 13.9 H Gran # 8.1 H 9.3 H Lymph # (Auto) 1.2 L 1.1 L Knox # (Auto) 1.8 H 1.7 H Sodium Potassium 3.1 L Chloride 94 L BUN 7 L Glucose 120 H Calcium Phosphorus 2.2 L Lactate Dehydrogenase Albumin 2.6 L Globulin 4.2 H Albumin/Globulin Ratio 0.6 L 01/06/19 01/06/19 06:28 06:28 WBC 12.6 H RBC Hgb Hct MPV 10.5 H Gran % 79.3 H Lymph % (Auto) 6.4 L Knox % (Auto) 12.6 H Gran # 10.0 H Lymph # (Auto) 0.8 L Knox # (Auto) 1.6 H Sodium Potassium Chloride BUN 6 L Glucose 115 H Calcium Phosphorus 1.6 L Lactate Dehydrogenase 365 H Albumin 2.8 L Globulin 4.6 H Albumin/Globulin Ratio 0.6 L Meds: Medications Acetaminophen (Tylenol) 650 mg PO Q6HP PRN PRN Reason: PAIN/FEVER > 101 Last Admin: 01/09/19 03:35 Dose: 650 mg Documented by: Albuterol/Ipratropium (Duoneb) 3 ml NEB Q4HP PRN PRN Reason: Shortness Of Breath Or Wheezing Last Admin: 01/07/19 11:54 Dose: 3 ml Documented by: Amlodipine Besylate (Norvasc) 10 mg PO DAILY [facility] Last Admin: 01/08/19 08:14 Dose: 10 mg Documented by: Bisacodyl (Dulcolax) 10 mg PO DAILYP PRN PRN Reason: Constipation Cefazolin Sodium (Ancef) 2 gm IV Q8H [facility]; Protocol Last Admin: 01/09/19 05:20 Dose: 2 gm Documented by: Enoxaparin Sodium (Lovenox) 40 mg SQ DAILY [facility] Last Admin: 01/08/19 08:15 Dose: 40 mg Documented by: Fentanyl (Sublimaze) 0 mcg IV PRN PRN PRN Reason: conscious sedation Last Admin: 01/06/19 14:30 Dose: 25 mcg Documented by: Furosemide (Lasix) 20 mg IV DAILY [facility] Last Admin: 01/08/19 08:18 Dose: 20 mg Documented by: Heparin Sodium (Porcine) (Heparin Flush) 2 ml IV Q12 [facility] Last Admin: 01/08/19 21:25 Dose: 2 ml Documented by: Hydralazine HCl (Apresoline) 10 mg IV Q4-6HP PRN PRN Reason: Hypertension Last Admin: 01/04/19 23:57 Dose: 10 mg Documented by: Magnesium Sulfate (Magnesium Sulfate) 2 gm in 50 mls @ 50 mls/hr IV UD PRN PRN Reason: Mag < or = 1.7 Ketorolac Tromethamine (Ketorolac Tromethamine) 0 ml OP BID [facility] Last Admin: 01/08/19 21:26 Dose: Not Given Documented by: Latanoprost (Xalatan Ophth Drops) 1 gtt OU HS [facility] Last Admin: 01/08/19 21:27 Dose: 1 gtt Documented by: Lisinopril (Zestril) 5 mg PO [facility] Last Admin: 01/08/19 21:27 Dose: 5 mg Documented by: Magnesium Hydroxide (Milk Of Magnesia) 30 ml PO DAILYP PRN PRN Reason: Constipation Midazolam HCl (Versed) 0 mg IV PRN PRN PRN Reason: conscious sedation Last Admin: 01/06/19 14:30 Dose: 0.5 mg Documented by: Mupirocin (Bactroban Oint 2%) 1 dose NARES BID [facility] Last Admin: 01/08/19 21:25 Dose: 1 dose Documented by: Ondansetron HCl (Zofran) 4 mg IV Q4HP PRN PRN Reason: Nausea And Vomiting Pantoprazole Sodium (Protonix) 40 mg PO QAMAC [facility] Last Admin: 01/08/19 08:16 Dose: 40 mg Documented by: Potassium Chloride (Potassium Chloride) 15 meq PT BIDCC [facility] Last Admin: 01/08/19 16:52 Dose: 15 meq Documented by: Potassium/Phosphorus/Sodium (Neutra Phos) 2 packet PO BID [facility] Stop: 01/09/19 09:01 Last Admin: 01/08/19 21:25 Dose: 2 packet Documented by: Sodium Chloride (Saline Flush) 10 ml IV Q8 [facility] Last Admin: 01/09/19 05:20 Dose: 10 ml Documented by: Sodium Chloride (Saline Flush) 10 ml IV UD PRN PRN Reason: FLUSH Sodium Chloride (Saline Flush) 10 ml IV Q12 [facility] Last Admin: 01/08/19 21:28 Dose: Not Given Documented by: Timolol Maleate (Timoptic 0.5% Ophth Drops) 1 gtt OU BID [facility] Last Admin: 01/08/19 21:28 Dose: 1 gtt Documented by: Tramadol HCl (Ultram) 50 mg PO Q4HP PRN PRN Reason: Pain Last Admin: 01/09/19 02:54 Dose: 50 mg Documented by: Medical - PN: A/P - Time Spent With Patient Total time spent is greater than 50% in coordination of care (as documented) at patient's floor/unit and/or counseling patient: - Narrative A/P Narrative: A: *Sepsis: 2/2 MSSA bacteremia -Leukocytosis resolved *JUANA abscess: s/p CT-guided drain placement -83cc last 24hrs *MSSA bacteremia -surveillance cultures since 01/04 negative -no vegetations noted on TTE *Hypophos/Ovi: improved *Acute cystitis. 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
[2019-01-09] MEDS: PANTOPRAZOLE 40 MG TABLET PO SCH (08:35)
[2019-01-09] MEDS: POTASSIUM CHLORIDE 20 MEQ/15 ML ML PT SCH ×2 (08:44→17:35)
[2019-01-09] MEDS: NEUTRA PHOS 1 PACKET PO SCH (10:51)
[2019-01-09] MEDS: amLODIPine 5 MG TABLET PO SCH (10:53)
[2019-01-09] MEDS: ENOXAPARIN 40 MG/0.4 ML SYRINGE SQ SCH (10:53)
[2019-01-09] MEDS: FUROSEMIDE 20 MG/2 ML VIAL IV SCH (10:53)
[2019-01-09] MEDS: TIMOLOL 0.5% OPHTH DROPS BOTTLE 5ML OU SCH ×2 (11:23→21:14)
[2019-01-09] MEDS: KETOROLAC TROMETHAMINE 3 ML DROPS OP SCH ×2 (11:24→21:14)
[2019-01-09] MEDS: MUPIROCIN OINT 2% 22GM NARES SCH ×2 (11:24→21:23)
[2019-01-09] MEDS: ALTEPLASE 2 MG VIAL IJ SCH (13:38)
--- NOTE | 2019-01-09 16:49 | XRay Report ---
CLINICAL INFORMATION: sob; chest pain COMPARISON: 01/08/2019 FINDINGS: Borderline cardiomegaly is unchanged. Mediastinum and pulmonary vessels are normal. The 8 cm known extrapleural abscess in the left apex is unchanged. Small left basilar infiltrate and small effusion also stable. IMPRESSION: No change in 8 cm left apical extrapleural abscess. Pigtail catheter remains in stable position. Small infiltrate left base with small left pleural effusion - also stable PICC line still too distal and should be withdrawn 5 cm Interpreted and Authenticated by: Amrit Gasca 01/09/19
[2019-01-09] MEDS: hydrALAZINE 20 MG/ML VIAL IV PRN (19:44)
[2019-01-09] MEDS: IPRATROPIUM/ALBUTEROL 3 ML AMPUL.NEB NEB PRN (19:45)
[2019-01-09] MEDS: LISINOPRIL 5 MG TABLET PO SCH (21:13)
[2019-01-09] MEDS: LATANOPROST OPHTH DROPS 2.5ML BOTTLE OU SCH (21:14)
[2019-01-10] MEDS: ALTEPLASE 2 MG VIAL IJ SCH (01:49)
[2019-01-10] MEDS: traMADol 50 MG TABLET PO PRN ×3 (03:37→16:31)
[2019-01-10] MEDS: ACETAMINOPHEN 325 MG TABLET PO PRN ×2 (03:38→19:40)
[2019-01-10] MEDS: hydrALAZINE 20 MG/ML VIAL IV PRN ×2 (05:28→19:52)
[2019-01-10] MEDS: 0.9 % SODIUM CHLORIDE 10 ML SYRINGE IV SCH ×8 (05:28→21:43)
[2019-01-10] MEDS: ceFAZolin 1 GM VIAL IV SCH ×3 (05:29→21:39)
[2019-01-10 06:11] LABS: Basophils # (Auto) 0 K/mcL (0.0-0.3); Basophils % (Auto) 0.2 % (0.0-2.0); Eosinophils # (Auto) 0.2 K/mcL (0.0-0.7); Eosinophils % (Auto) 1.5 % (0.0-7.0); Granulocytes % (Auto) 78.2 % (38.0-78.0); Hematocrit 32.3 % (36.0-48.0); Hemoglobin 10.7 g/dL (12.0-15.0); Lymphocytes % (Auto) 8.9 % (15.5-49.0); Mean Cell Volume 86.2 fL (80.0-100.0); Mean Platelet Volume 9.1 fL (7.4-10.4); Monocytes # (Auto) 1.3 K/mcL (0.1-0.9); Monocytes % (Auto) 11.2 % (1.0-12.0); Platelet Count 366 K/mcL (140-440); RBC 3.75 M/mcL (4.00-5.20); Red Cell Distribution Width 13.4 % (11.5-14.5); WBC 11.2 K/mcL (4.5-11.0)
[2019-01-10 06:22] LABS: Blood Urea Nitrogen 9 mg/dl (8-23); Calcium 8.7 mg/dl (8.6-10.4); Carbon Dioxide 28 mmol/L (22-30); Chloride 92 mmol/L (96-108); Glomerular Filtration Rate 89; Glucose 131 mg/dL (70-105)
[2019-01-10] MEDS: POTASSIUM CHLORIDE 20 MEQ/15 ML ML PT SCH ×2 (07:21→16:31)
[2019-01-10] MEDS: ENOXAPARIN 40 MG/0.4 ML SYRINGE SQ SCH (07:21)
[2019-01-10] MEDS: PANTOPRAZOLE 40 MG TABLET PO SCH (07:22)
[2019-01-10] MEDS: amLODIPine 5 MG TABLET PO SCH (07:23)
[2019-01-10] MEDS: FUROSEMIDE 20 MG/2 ML VIAL IV SCH (07:23)
--- NOTE | 2019-01-10 09:36 | Internal Med Progress Note ---
Medical - PN: Subj Patient information: Note initiated : 01/10/19 at 9:32 am Service Date, if different from initiated Date: [] Patient: Fiorella Leon a 78 y/o F admitted on 01/02/19 for Shoulder pain, Change in LOC. Chief Complaint: [] Interval history: Ms. Leon is a 78 year old F who presents to the emergency department brought in by her with concerns of confusion. Apparently she had not been doing well for the last few days, however was just seen here yesterday with main complaint of left shoulder pain and was diagnosed with muscle spasm. She was prescribed Flexeril, it is unclear if she is taking many of those tablets. She reports back to the ED with her quite confused. Apparently she did not follow much conversation and could not give much history upon arrival though did improve after fluids. Evaluation in the emergency department shows evidence of urinary tract infection with sepsis, white count of 20 and encephalopathy. Location: Systemic; timing: Onset 1 to 2 days ago; severity: Moderate; associated symptoms: As in review of systems. Patient felt feverish last evening, she felt chilled but did not have shaking chills. She occasionally has a headache, but none currently. No neck pain or stiffness. She had some mild nausea this morning but no emesis. She is had no abdominal pain. She has had no diarrhea. She has had some dysuria. In the emergency department, the patient is also noted to be extremely hypertensive with systolic blood pressures in the 200s and diastolics in the 110's. Patient was trying to describe that she had had a hypertensive reaction to a treatment for her glaucoma but is still little confused and cannot really provide details. According to her , her blood pressure may have been high for a while but she has never been treated for hypertension. She is now being admitted for treatment of sepsis from urinary source. 01/03-seen at bedside with her and nursing. She is less confused this afternoon and is starting to feel better. Blood cultures are positive for gram- positive cocci in both sets. Urine culture is without growth. Vancomycin added to regimen. Patient really had not been having fevers chills. She has been feeling poorly for a few days prior to presenting to the hospital however. She does have some wounds in the lower legs where she has scratched at areas of eczema. 2continues to improve. Mentation seems back to normal. Did have episode of chest tightness this morning, she is noted similar episodes in the past. Occurred at rest. She had had systolic blood pressure in the 200 range, had received hydralazine the time of onset with blood pressure down to the 140s. Cultures have identified pansensitive Staphylococcus aureus. Discussed with infectious disease, echo is ordered, will also obtain CT of the chest as well as the left shoulder where she has been having some pain. eveloped some dyspnea just about midnight. Also had low-grade fever. Received acetaminophen and breathing treatment. Also received 20 mg of Lasix with significant improvement in dyspnea. Feel little more dyspneic this morning as well. Review of intake/output shows she is about 6 L positive. Discussed with Dr. Vuong for infectious disease. CT scan images reviewed with him. Form al report now shows probable abscess in the left upper lung region extrapleural space. Still with left shoulder pain, query if it is related to the abscess. 01/06-patient feels a lot better since admission. at bedside. Discussed blood cultures/imaging findings and treatment plan. Abscess drainage scheduled for 2 PM. Surveillance cultures from 01/04+ for gram-positive cocci. MSSA on initial cultures. On IV cefazolin as per ID. ID recommends transesophageal echocardiogram as outpatient. Continuing antibiotic coverage. White count down from 20,200-12.6. Potassium improved from 2.8-3.3. UA pyuria. Remains afebrile. 01/07-pansensitive staph aureus currently on cefazolin. ID recommends at least 4 weeks antibiotics. Potassium 3.1 on replacement. White count 12.3. Will require outpatient transesophageal echocardiogram. Surveillance blood cultures negative so far. 01/08-patient doing well. No overnight events. Drain output over 30 cc left anterior chest. Pansensitive staph aureus. Surveillance cultures from 01/06- so far. Continuing IV antibiotics as per id. PICC line placement today. No overnight fever chills. White count 11.4. Potassium 3.6, phosphorus up to 2.5 01/09 Feeling better. No overnight events. No new complaints. Cough much improved. No real noticeable shortness of breath. Occasional headache 01/10 Quite a bit of drainage after TPA via catheter overnight. No overnight events. Does have a little bit of left upper chest discomfort where the catheter is in place. Review of Systems: denies fever/chills/nausea/vomiting/chest or abdominal pain/diarrhea. Otherwise see above. - Constitutional Vitals: Vital Signs Temp Pulse Resp BP Pulse Ox 97.8 F 75 20 146/59 91 01/10/19 08:00 01/10/19 04:03 01/10/19 08:00 01/10/19 08:00 01/10/19 08:00 Period Temp Pulse Resp BP Sys/Mccullough Pulse Ox Last 24 Hr 97.8 F-99.4 F 73-84 20-28 144-178/59-79 88-94 Intake and Output 01/09/19 01/10/19 01/10/19 21:59 05:59 13:59 Intake Total 375 Output Total 549 657 Balance -549 -282 Weight 80.422 kg Intake & Output: Intake & Output 01/09/19 01/10/19 01/10/19 21:59 05:59 13:59 Intake Total 375 Output Total 549 657 Balance -549 -282 Weight 80.422 kg Intake: Oral 375 Output: Drainage 49 157 Left Upper T-Tube 49 157 Void Amount 500 500 Other: Urine Appearance Clear Clear Urine Color Bright Yellow Straw Urine Odor Normal Exam: General: Alert, Awake, No acute Distress Eyes/N/T: EOMI, Head/Neck: neck supple, CV: RRR, No murmurs, Pulm: Diminished left side with rhonchi, right clear. no wheezing. chest tube in place Abd: soft, nontender, +BS x4 Ext: no clubbing/cyanosis/edema Neuro: Alert, no focal deficits, moves all extremities, Skin: warm/dry Medical - PN: Obj Da - Labs CBC & Chem 7: 01/10/19 04:45 01/10/19 04:45 Labs: Abnormal Lab Results 01/10/19 01/10/19 01/09/19 04:45 04:45 04:00 WBC 11.2 H RBC 3.75 L Hgb 10.7 L Hct 32.3 L Gran % 78.2 H Lymph % (Auto) 8.9 L Moffat % (Auto) Gran # 8.8 H Lymph # (Auto) 1.0 L Moffat # (Auto) 1.3 H Sodium 131 L 132 L Chloride 92 L 95 L Glucose 131 H 114 H Calcium 8.3 L Phosphorus Lactate Dehydrogenase 284 H Albumin 2.7 L Globulin 4.3 H Albumin/Globulin Ratio 0.6 L 01/09/19 01/08/19 01/08/19 04:00 04:15 04:15 WBC 11.4 H RBC 3.74 L Hgb 10.7 L 11.6 L Hct 32.7 L Gran % Lymph % (Auto) 10.4 L 10.7 L Moffat % (Auto) 13.3 H 15.9 H Gran # 8.1 H Lymph # (Auto) 0.9 L 1.2 L Moffat # (Auto) 1.1 H 1.8 H Sodium Chloride 94 L Glucose 120 H Calcium Phosphorus 2.5 L Lactate Dehydrogenase 256 H Albumin 2.8 L Globulin 4.4 H Albumin/Globulin Ratio 0.6 L Meds: Medications Acetaminophen (Tylenol) 650 mg PO Q6HP PRN PRN Reason: PAIN/FEVER > 101 Last Admin: 01/10/19 03:38 Dose: 650 mg Documented by: Albuterol/Ipratropium (Duoneb) 3 ml NEB Q4HP PRN PRN Reason: Shortness Of Breath Or Wheezing Last Admin: 01/09/19 19:45 Dose: 3 ml Documented by: Amlodipine Besylate (Norvasc) 10 mg PO DAILY [facility] Last Admin: 01/10/19 07:23 Dose: 10 mg Documented by: Bisacodyl (Dulcolax) 10 mg PO DAILYP PRN PRN Reason: Constipation Cefazolin Sodium (Ancef) 2 gm IV Q8H [facility]; Protocol Last Admin: 01/10/19 05:29 Dose: 2 gm Documented by: Enoxaparin Sodium (Lovenox) 40 mg SQ DAILY [facility] Last Admin: 01/10/19 07:21 Dose: 40 mg Documented by: Fentanyl (Sublimaze) 0 mcg IV PRN PRN PRN Reason: conscious sedation Last Admin: 01/06/19 14:30 Dose: 25 mcg Documented by: Furosemide (Lasix) 20 mg IV DAILY [facility] Last Admin: 01/10/19 07:23 Dose: 20 mg Documented by: Heparin Sodium (Porcine) (Heparin Flush) 2 ml IV Q12 [facility] Last Admin: 01/09/19 21:13 Dose: 2 ml Documented by: Hydralazine HCl (Apresoline) 10 mg IV Q4-6HP PRN PRN Reason: Hypertension Last Admin: 01/10/19 05:28 Dose: 10 mg Documented by: Magnesium Sulfate (Magnesium Sulfate) 2 gm in 50 mls @ 50 mls/hr IV UD PRN PRN Reason: Mag < or = 1.7 Ketorolac Tromethamine (Ketorolac Tromethamine) 0 ml OP BID [facility] Last Admin: 01/09/19 21:14 Dose: Not Given Documented by: Latanoprost (Xalatan Ophth Drops) 1 gtt OU HS [facility] Last Admin: 01/09/19 21:14 Dose: 1 gtt Documented by: Lisinopril (Zestril) 5 mg PO HS [facility] Last Admin: 01/09/19 21:13 Dose: 5 mg Documented by: Magnesium Hydroxide (Milk Of Magnesia) 30 ml PO DAILYP PRN PRN Reason: Constipation Midazolam HCl (Versed) 0 mg IV PRN PRN PRN Reason: conscious sedation Last Admin: 01/06/19 14:30 Dose: 0.5 mg Documented by: Mupirocin (Bactroban Oint 2%) 1 dose NARES BID [facility] Last Admin: 01/09/19 21:23 Dose: 1 dose Documented by: Ondansetron HCl (Zofran) 4 mg IV Q4HP PRN PRN Reason: Nausea And Vomiting Pantoprazole Sodium (Protonix) 40 mg PO QAMAC [facility] Last Admin: 01/10/19 07:22 Dose: 40 mg Documented by: Potassium Chloride (Potassium Chloride) 15 meq PT BIDCC [facility] Last Admin: 01/10/19 07:21 Dose: 15 meq Documented by: Sodium Chloride (Saline Flush) 10 ml IV Q8 [facility] Last Admin: 01/10/19 07:21 Dose: 10 ml Documented by: Sodium Chloride (Saline Flush) 10 ml IV UD PRN PRN Reason: FLUSH Sodium Chloride (Saline Flush) 10 ml IV Q12 [facility] Last Admin: 01/09/19 21:23 Dose: Not Given Documented by: Timolol Maleate (Timoptic 0.5% Ophth Drops) 1 gtt OU BID [facility] Last Admin: 01/09/19 21:14 Dose: 1 gtt Documented by: Tramadol HCl (Ultram) 50 mg PO Q4HP PRN PRN Reason: Pain Last Admin: 01/10/19 07:22 Dose: 50 mg Documented by: Medical - PN: A/P - Time Spent With Patient Total time spent is greater than 50% in coordination of care (as documented) at patient's floor/unit and/or counseling patient: - Narrative A/P Narrative: A: *Sepsis: 22 MSSA bacteremia -Leukocytosis improved *JUANA abscess: s/p CT-guided drain placement - *MSSA bacteremia: -surveillance cultures since 01/04 negative -no vegetations noted on TTE *Hypophos/Ovi: improved *Acute cystitis. Clinically resolved *Encephalopathy: 2/2 sepsis, resolved *HTN urgency: resolved *h/o CVA: old lacunar infarct noted on CT, lipid panel ok. not on ASA, start when chest tube d/c'd Plan: -Continue IV antibiotics as per ID, on cefazolin, Likely 4 weeks treatment as per ID -PICC line placement -Continue chest drain care, Rads following - tpa -f/u CT chest on friday if continues to drain -Ordered transesophageal echocardiogram to be scheduled as outpatient on discharge -Continue amlodipine 10mg/JORDAN inhibitor(increase)/as needed hydralazine, further adjustment per PCP -Discharge planning per case management for long-term antibiotic -pt/ot -ppx: heparin DNR
[2019-01-10] MEDS: MUPIROCIN OINT 2% 22GM NARES SCH ×2 (11:53→21:42)
[2019-01-10] MEDS: KETOROLAC TROMETHAMINE 3 ML DROPS OP SCH ×3 (11:53→21:53)
[2019-01-10] MEDS: TIMOLOL 0.5% OPHTH DROPS BOTTLE 5ML OU SCH ×2 (11:54→21:41)
[2019-01-10] MEDS: LISINOPRIL 5 MG TABLET PO SCH ×2 (12:05→21:39)
[2019-01-10] MEDS: SODIUM CHLORIDE 1 GM TABLET PO SCH ×3 (12:05→21:39)
--- NOTE | 2019-01-10 13:09 | Discharge Summary ---
Medical - DS: Prov Patient information: Note initiated : 01/10/19 at 1:07 pm Service Date, if different from initiated Date: [] Patient: Fiorella Leon 78 y/o F admitted on 01/02/19 for Shoulder pain, Change in LOC. Chief Complaint: [] Date of admission: 01/02/19 21:00 Primary care physician: PCP No Consults: 01/02/19 Consult to Physician [CONS] Stat Comment: Consulting Provider: Tanya Addison Reason For Exam: Physician to Consult 01/04/19 21:27 Consult to Physician [CONS] Routine Comment: Consulting Provider: Feliberto Vuong Reason For Exam: Physician to Consult Medical - DS: Meds - Discharge Medications Prescriptions: amLODIPine [Norvasc] 10 mg PO DAILY #30 tablet Lisinopril [Zestril] 5 mg PO BID #60 tablet Active and Home Medications: Home Medications Cyclobenzaprine [Flexeril] 10 mg PO TID #20 tab 01/01/19 [Rx Confirmed 01/03/19 Last Taken Unknown] Ketorolac Tromethamine 1 gtt OU BID 01/03/19 [History Confirmed 01/03/19 Last Taken Unknown] Latanoprost/Pf [Latanoprost 0.005% Eye Drop] 1 gtt OU HS 01/03/19 [History Confirmed 01/03/19 Last Taken Unknown] Timolol 0.5% Ophth Drops [Timoptic 0.5% Ophth Drops] 1 gtt OU BID 01/03/19 [ History Confirmed 01/03/19 Last Taken Unknown] Home Medications Cyclobenzaprine [Flexeril] 10 mg PO TID #20 tab 01/01/19 [Rx Confirmed 01/03/19 Last Taken Unknown] Ketorolac Tromethamine 1 gtt OU BID 01/03/19 [History Confirmed 01/03/19 Last Taken Unknown] Latanoprost/Pf [Latanoprost 0.005% Eye Drop] 1 gtt OU HS 01/03/19 [History Confirmed 01/03/19 Last Taken Unknown] Timolol 0.5% Ophth Drops [Timoptic 0.5% Ophth Drops] 1 gtt OU BID 01/03/19 [History Confirmed 01/03/19 Last Taken Unknown] Lisinopril [Zestril] 5 mg PO BID #60 tablet 01/10/19 [Rx Last Taken Unknown] amLODIPine [Norvasc] 10 mg PO DAILY #30 tablet 01/10/19 [Rx Last Taken Unknown] Medical - DS: Hosp Hospital Course: Ms. Leon is a 78 year old F who presents to the emergency department brought in by her with concerns of confusion. Apparently she had not been doing well for the last few days, however was just seen here yesterday with main complaint of left shoulder pain and was diagnosed with muscle spasm. She was prescribed Flexeril, it is unclear if she is taking many of those tablets. She reports back to the ED with her quite confused. Apparently she did not follow much conversation and could not give much history upon arrival though did improve after fluids. Evaluation in the emergency department shows evidence of urinary tract infection with sepsis, white count of 20 and encephalopathy. Location: Systemic; timing: Onset 1 to 2 days ago; severity: Moderate; associated symptoms: As in review of systems. Patient felt feverish last evening, she felt chilled but did not have shaking chills. She occasionally has a headache, but none currently. No neck pain or stiffness. She had some mild nausea this morning but no emesis. She is had no abdominal pain. She has had no diarrhea. She has had some dysuria. In the emergency department, the patient is also noted to be extremely hypertensive with systolic blood pressures in the 200s and diastolics in the 110's. Patient was trying to describe that she had had a hypertensive reaction to a treatment for her glaucoma but is still little confused and cannot really provide details. According to her , her blood pressure may have been high for a while but she has never been treated for hypertension. She is now being admitted for treatment of sepsis from urinary source. 01/03-seen at bedside with her and nursing. She is less confused this afternoon and is starting to feel better. Blood cultures are positive for gram- positive cocci in both sets. Urine culture is without growth. Vancomycin added to regimen. Patient really had not been having fevers chills. She has been feeling poorly for a few days prior to presenting to the hospital however. She does have some wounds in the lower legs where she has scratched at areas of eczema. 2continues to improve. Mentation seems back to normal. Did have episode of chest tightness this morning, she is noted similar episodes in the past. Occurred at rest. She had had systolic blood pressure in the 200 range, had received hydralazine the time of onset with blood pressure down to the 140s. Cultures have identified pansensitive Staphylococcus aureus. Discussed with infectious disease, echo is ordered, will also obtain CT of the chest as well as the left shoulder where she has been having some pain. eveloped some dyspnea just about midnight. Also had low-grade fever. Received acetaminophen and breathing treatment. Also received 20 mg of Lasix with significant improvement in dyspnea. Feel little more dyspneic this morning as well. Review of intake/output shows she is about 6 L positive. Discussed with Dr. Vuong for infectious disease. CT scan images reviewed with him. Formal report now shows probable abscess in the left upper lung region extrapleural space. Still with left shoulder pain, query if it is related to the abscess. 01/06-patient feels a lot better since admission. at bedside. Discussed blood cultures/imaging findings and treatment plan. Abscess drainage scheduled for 2 PM. Surveillance cultures from 01/04+ for gram-positive cocci. MSSA on initial cultures. On IV cefazolin as per ID. ID recommends transesophageal echocardiogram as outpatient. Continuing antibiotic coverage. White count down from 20,200-12.6. Potassium improved from 2.8-3.3. UA pyuria. Remains afebrile. 01/07-pansensitive staph aureus currently on cefazolin. ID recommends at least 4 weeks antibiotics. Potassium 3.1 on replacement. White count 12.3. Will require outpatient transesophageal echocardiogram. Surveillance blood cultures negative so far. 01/08-patient doing well. No overnight events. Drain output over 30 cc left anterior chest. Pansensitive staph aureus. Surveillance cultures from 01/06- so far. Continuing IV antibiotics as per id. PICC line placement today. No overnight fever chills. White count 11.4. Potassium 3.6, phosphorus up to 2.5 01/09 Feeling better. No overnight events. No new complaints. Cough much improved. No real noticeable shortness of breath. Occasional headache 01/10 Quite a bit of drainage after TPA via catheter overnight. No overnight events. Does have a little bit of left upper chest discomfort where the catheter is in place. Discharge diagnosis: Sepsis MSSA bacteremia left upper lobe abscess Secondary discharge diagnosis: Electrolyte abnormalities acute cystitis encephalopathy resolved hypertensive urgency history of CVA - Time Spent with Patient Total time spent providing and/or coordinating discharge services: Medical - DS: Exam - Constitutional Vitals: Vital Signs Temp Pulse Resp BP Pulse Ox 01/10/19 08:00 97.8 F 20 146/59 91 01/10/19 07:48 90 01/10/19 04:03 98.5 F 75 22 178/67 90 01/09/19 23:04 99.4 F H 73 24 H 159/68 91 01/09/19 19:40 28 H 01/09/19 19:35 98.3 F 84 28 H 175/76 88 L 01/09/19 16:00 99.2 F H 20 169/70 90 Intake and Output 01/09/19 01/10/19 01/10/19 21:59 05:59 13:59 Intake Total 375 Output Total 549 657 500 Balance -717 -735 -334 Intake: Oral 375 Output: Drainage 49 157 Left Upper T-Tube 49 157 Void Amount 500 500 500 Other: Urine Appearance Clear Clear Urine Color Bright Yellow Straw Urine Odor Normal Weight 80.422 kg Medical - DS: Data Labs on day of discharge: Labs from last 24 hours 01/10/19 01/10/19 04:45 04:45 WBC 11.2 H RBC 3.75 L Hgb 10.7 L Hct 32.3 L MCV 86.2 MCH 28.5 MCHC 33.0 RDW 13.4 Plt Count 366 MPV 9.1 Gran % 78.2 H Lymph % (Auto) 8.9 L Hendricks % (Auto) 11.2 Eos % (Auto) 1.5 Baso % (Auto) 0.2 Gran # 8.8 H Lymph # (Auto) 1.0 L Hendricks # (Auto) 1.3 H Eos # (Auto) 0.2 Baso # (Auto) 0 Sodium 131 L Potassium 3.9 Chloride 92 L Carbon Dioxide 28 Anion Gap 11.0 BUN 9 Creatinine 0.6 GFR Calculation 89 Glucose 131 H Calcium 8.7 Preliminary micro results at discharge 01/06/19 09:18 Blood Culture - Preliminary Blood 01/06/19 09:41 Blood Culture - Preliminary Blood 01/04/19 14:27 Blood Culture - Preliminary Blood Staphylococcus aureus Medical - DS: A/P - Patient/Caregiver Discharge Instructions Activity: increase activity as tolerated Diet: Regular Diet Additional Instructions: Medical Review Coordinator blood pressure twice daily keep a log and bring it to your PCP for next appointment Needs/Schedule outpatient transesophageal echocardiogram - Follow up Plan Follow up with: [facility] [Outside] - 01/18/19 10:00 am ([facility], please call Nevaeh at discharge and she will go over the prep for your GABRIELA procedure ([phone]). You will need to check in at outpatient registration at 9:00 am for this appointment.) No,PCP [Primary Care Provider] - Feliberto Vuong MD [Physician] - Disposition: Home Health Service Prognosis: Undetermined Rehab Potential: Fair Overall status at discharge: patient is progressing back to baseline
[2019-01-10] MEDS ORDERED: diphenhydrAMINE 50 MG/ML VIAL IV PRN (20:28)
[2019-01-10] MEDS: LATANOPROST OPHTH DROPS 2.5ML BOTTLE OU SCH (21:42)
[2019-01-11] MEDS: traMADol 50 MG TABLET PO PRN ×3 (03:10→22:07)
[2019-01-11] MEDS: hydrALAZINE 20 MG/ML VIAL IV PRN ×2 (03:24→19:32)
[2019-01-11] MEDS: IPRATROPIUM/ALBUTEROL 3 ML AMPUL.NEB NEB PRN ×3 (03:40→20:01)
[2019-01-11] MEDS: 0.9 % SODIUM CHLORIDE 10 ML SYRINGE IV SCH ×5 (06:07→22:06)
[2019-01-11] MEDS: ceFAZolin 1 GM VIAL IV SCH ×3 (06:07→22:06)
[2019-01-11 07:02] LABS: Basophils # (Auto) 0 K/mcL (0.0-0.3); Basophils % (Auto) 0.1 % (0.0-2.0); Eosinophils # (Auto) 0.1 K/mcL (0.0-0.7); Eosinophils % (Auto) 0.5 % (0.0-7.0); Granulocytes % (Auto) 83.2 % (38.0-78.0); Hematocrit 31.2 % (36.0-48.0); Hemoglobin 10.3 g/dL (12.0-15.0); Lymphocytes # (Auto) 0.9 K/mcL (1.5-4.8); Lymphocytes % (Auto) 6.6 % (15.5-49.0); Mean Cell Volume 86.9 fL (80.0-100.0); Mean Corpuscular HGB Conc 33.1 g/dL (31.0-36.0); Mean Platelet Volume 9.1 fL (7.4-10.4); Monocytes # (Auto) 1.3 K/mcL (0.1-0.9); Monocytes % (Auto) 9.6 % (1.0-12.0); Platelet Count 401 K/mcL (140-440); RBC 3.59 M/mcL (4.00-5.20); WBC 13.3 K/mcL (4.5-11.0)
[2019-01-11 07:27] LABS: Blood Urea Nitrogen 10 mg/dl (8-23); Calcium 8.5 mg/dl (8.6-10.4); Carbon Dioxide 28 mmol/L (22-30); Chloride 95 mmol/L (96-108); Glomerular Filtration Rate 89; Glucose 128 mg/dL (70-105)
[2019-01-11] MEDS: PANTOPRAZOLE 40 MG TABLET PO SCH (07:40)
--- NOTE | 2019-01-11 08:03 | Internal Med Progress Note ---
Medical - PN: Subj Patient information: Note initiated : 01/11/19 at 7:55 am Service Date, if different from initiated Date: [] Patient: Fiorella Leon a 78 y/o F admitted on 01/02/19 for Shoulder pain, Change in LOC. Chief Complaint: [] Interval history: Ms. Leon is a 78 year old F who presents to the emergency department brought in by her with concerns of confusion. Apparently she had not been doing well for the last few days, however was just seen here yesterday with main complaint of left shoulder pain and was diagnosed with muscle spasm. She was prescribed Flexeril, it is unclear if she is taking many of those tablets. She reports back to the ED with her quite confused. Apparently she did not follow much conversation and could not give much history upon arrival though did improve after fluids. Evaluation in the emergency department shows evidence of urinary tract infection with sepsis, white count of 20 and encephalopathy. Location: Systemic; timing: Onset 1 to 2 days ago; severity: Moderate; associated symptoms: As in review of systems. Patient felt feverish last evening, she felt chilled but did not have shaking chills. She occasionally has a headache, but none currently. No neck pain or stiffness. She had some mild nausea this morning but no emesis. She is had no abdominal pain. She has had no diarrhea. She has had some dysuria. In the emergency department, the patient is also noted to be extremely hypertensive with systolic blood pressures in the 200s and diastolics in the 110's. Patient was trying to describe that she had had a hypertensive reaction to a treatment for her glaucoma but is still little confused and cannot really provide details. According to her , her blood pressure may have been high for a while but she has never been treated for hypertension. She is now being admitted for treatment of sepsis from urinary source. 01/03-seen at bedside with her and nursing. She is less confused this afternoon and is starting to feel better. Blood cultures are positive for gram- positive cocci in both sets. Urine culture is without growth. Vancomycin added to regimen. Patient really had not been having fevers chills. She has been feeling poorly for a few days prior to presenting to the hospital however. She does have some wounds in the lower legs where she has scratched at areas of eczema. 2continues to improve. Mentation seems back to normal. Did have episode of chest tightness this morning, she is noted similar episodes in the past. Occurred at rest. She had had systolic blood pressure in the 200 range, had received hydralazine the time of onset with blood pressure down to the 140s. Cultures have identified pansensitive Staphylococcus aureus. Discussed with infectious disease, echo is ordered, will also obtain CT of the chest as well as the left shoulder where she has been having some pain. eveloped some dyspnea just about midnight. Also had low-grade fever. Received acetaminophen and breathing treatment. Also received 20 mg of Lasix with significant improvement in dyspnea. Feel little more dyspneic this morning as well. Review of intake/output shows she is about 6 L positive. Discussed with Dr. Vuong for infectious disease. CT scan images reviewed with him. Form al report now shows probable abscess in the left upper lung region extrapleural space. Still with left shoulder pain, query if it is related to the abscess. 01/06-patient feels a lot better since admission. at bedside. Discussed blood cultures/imaging findings and treatment plan. Abscess drainage scheduled for 2 PM. Surveillance cultures from 01/04+ for gram-positive cocci. MSSA on initial cultures. On IV cefazolin as per ID. ID recommends transesophageal echocardiogram as outpatient. Continuing antibiotic coverage. White count down from 20,200-12.6. Potassium improved from 2.8-3.3. UA pyuria. Remains afebrile. 01/07-pansensitive staph aureus currently on cefazolin. ID recommends at least 4 weeks antibiotics. Potassium 3.1 on replacement. White count 12.3. Will require outpatient transesophageal echocardiogram. Surveillance blood cultures negative so far. 01/08-patient doing well. No overnight events. Drain output over 30 cc left anterior chest. Pansensitive staph aureus. Surveillance cultures from 01/06- so far. Continuing IV antibiotics as per id. PICC line placement today. No overnight fever chills. White count 11.4. Potassium 3.6, phosphorus up to 2.5 01/09 Feeling better. No overnight events. No new complaints. Cough much improved. No real noticeable shortness of breath. Occasional headache 01/10 Quite a bit of drainage after TPA via catheter overnight. No overnight events. Does have a little bit of left upper chest discomfort where the catheter is in place. 01/11 She has been having crampy left upper chest pain in the evenings since the TPA was delivered, and causing pleuritic pain. There was no other complaints. Review of Systems: denies fever/chills/nausea/vomiting/abdominal pain/diarrhea. Otherwise see above. - Constitutional Vitals: Vital Signs Temp Pulse Resp BP Pulse Ox 98.1 F 82 22 160/68 91 01/11/19 03:10 01/11/19 03:40 01/11/19 03:40 01/11/19 03:50 01/11/19 03:10 Period Temp Pulse Resp BP Sys/Mccullough Pulse Ox Last 24 Hr 97.8 F-99.3 F 70-83 16-24 138-209/59-85 90-93 Intake and Output 01/10/19 01/11/19 01/11/19 21:59 05:59 13:59 Intake Total 650 450 Output Total 1023 480 Balance -373 -30 Weight 79.016 kg Intake & Output: Intake & Output 01/10/19 01/11/19 01/11/19 21:59 05:59 13:59 Intake Total 650 450 Output Total 1023 480 Balance -373 -30 Weight 79.016 kg Intake: Oral 650 450 Output: Drainage 73 30 Left Upper T-Tube 73 30 Void Amount 950 450 Other: Meal Dinner Percent of Meal Consumed 50% Urine Appearance Clear Clear Urine Color Dark Yellow Bright Yellow Urine Odor Strong Normal Exam: General: Alert, Awake, No acute Distress Eyes/N/T: EOMI, Head/Neck: neck supple, CV: RRR, No murmurs, Pulm: mild rhonchi left upper lobe, mild TTP left later upper chest wall. no wheezing. chest tube in place Abd: soft, nontender, +BS x4 Ext: no clubbing/cyanosis/edema Neuro: Alert, no focal deficits, moves all extremities, Skin: warm/dry Medical - PN: Obj Da - Labs CBC & Chem 7: 01/11/19 06:00 01/11/19 06:00 Labs: Abnormal Lab Results 01/11/19 01/11/19 01/10/19 06:00 06:00 04:45 WBC 13.3 H RBC 3.59 L Hgb 10.3 L Hct 31.2 L Gran % 83.2 H Lymph % (Auto) 6.6 L Harnett % (Auto) Gran # 11.0 H Lymph # (Auto) 0.9 L [place]ett # (Auto) 1.3 H Sodium 132 L 131 L Chloride 95 L 92 L Glucose 128 H 131 H Calcium 8.5 L Lactate Dehydrogenase Albumin Globulin Albumin/Globulin Ratio 01/10/19 01/09/19 01/09/19 04:45 04:00 04:00 WBC 11.2 H RBC 3.75 L 3.74 L Hgb 10.7 L 10.7 L Hct 32.3 L 32.7 L Gran % 78.2 H Lymph % (Auto) 8.9 L 10.4 L [place]ett % (Auto) 13.3 H Gran # 8.8 H Lymph # (Auto) 1.0 L 0.9 L [place]ett # (Auto) 1.3 H 1.1 H Sodium 132 L Chloride 95 L Glucose 114 H Calcium 8.3 L Lactate Dehydrogenase 284 H Albumin 2.7 L Globulin 4.3 H Albumin/Globulin Ratio 0.6 L Meds: Medications Acetaminophen (Tylenol) 650 mg PO Q6HP PRN PRN Reason: PAIN/FEVER > 101 Last Admin: 01/10/19 19:40 Dose: 650 mg Documented by: Albuterol/Ipratropium (Duoneb) 3 ml NEB Q4HP PRN PRN Reason: Shortness Of Breath Or Wheezing Last Admin: 01/11/19 03:40 Dose: 3 ml Documented by: Amlodipine Besylate (Norvasc) 10 mg PO DAILY [facility] Last Admin: 01/10/19 07:23 Dose: 10 mg Documented by: Bisacodyl (Dulcolax) 10 mg PO DAILYP PRN PRN Reason: Constipation Cefazolin Sodium (Ancef) 2 gm IV Q8H [facility]; Protocol Last Admin: 01/11/19 06:07 Dose: 2 gm Documented by: Diphenhydramine HCl (Benadryl) 25 mg IV Q4HP PRN PRN Reason: Allergic Symptoms Last Admin: 01/10/19 21:38 Dose: 25 mg Documented by: Enoxaparin Sodium (Lovenox) 40 mg SQ DAILY [facility] Last Admin: 01/10/19 07:21 Dose: 40 mg Documented by: Furosemide (Lasix) 20 mg IV DAILY [facility] Last Admin: 01/10/19 07:23 Dose: 20 mg Documented by: Heparin Sodium (Porcine) (Heparin Flush) 2 ml IV Q12 [facility] Last Admin: 01/10/19 21:40 Dose: 2 ml Documented by: Hydralazine HCl (Apresoline) 10 mg IV Q4-6HP PRN PRN Reason: Hypertension Last Admin: 01/11/19 03:24 Dose: 10 mg Documented by: Magnesium Sulfate (Magnesium Sulfate) 2 gm in 50 mls @ 50 mls/hr IV UD PRN PRN Reason: Mag < or = 1.7 Ketorolac Tromethamine (Ketorolac Tromethamine) 0 ml OP BID [facility] Last Admin: 01/10/19 21:53 Dose: Not Given Documented by: Latanoprost (Xalatan Ophth Drops) 1 gtt OU HS [facility] Last Admin: 01/10/19 21:42 Dose: 1 gtt Documented by: Lisinopril (Zestril) 10 mg PO HS [facility] Magnesium Hydroxide (Milk Of Magnesia) 30 ml PO DAILYP PRN PRN Reason: Constipation Mupirocin (Bactroban Oint 2%) 1 dose NARES BID [facility] Last Admin: 01/10/19 21:42 Dose: 1 dose Documented by: Ondansetron HCl (Zofran) 4 mg IV Q4HP PRN PRN Reason: Nausea And Vomiting Pantoprazole Sodium (Protonix) 40 mg PO QAMAC [facility] Last Admin: 01/11/19 07:40 Dose: 40 mg Documented by: Potassium Chloride (Potassium Chloride) 15 meq PT BIDCC [facility] Last Admin: 01/10/19 16:31 Dose: 15 meq Documented by: Sodium Chloride (Saline Flush) 10 ml IV Q8 [facility] Last Admin: 01/11/19 06:07 Dose: 10 ml Documented by: Sodium Chloride (Saline Flush) 10 ml IV UD PRN PRN Reason: FLUSH Sodium Chloride (Saline Flush) 10 ml IV Q12 [facility] Last Admin: 01/10/19 21:43 Dose: 10 ml Documented by: Timolol Maleate (Timoptic 0.5% Ophth Drops) 1 gtt OU BID [facility] Last Admin: 01/10/19 21:41 Dose: 1 gtt Documented by: Tramadol HCl (Ultram) 50 mg PO Q4HP PRN PRN Reason: Pain Last Admin: 09/09/19 03:10 Dose: 50 mg Documented by: Medical - PN: A/P - Time Spent With Patient Total time spent is greater than 50% in coordination of care (as documented) at patient's floor/unit and/or counseling patient: - Narrative A/P Narrative: A: *Sepsis: 2/2 MSSA bacteremia -Leukocytosis improved, but bumping up again *JUANA abscess: s/p CT-guided drain placement -103cc drain past 24hrs (decreased from previous day ~200, but increased sin ce tpa delivered) *MSSA bacteremia: -surveillance cultures since 01/04 negative -no vegetations noted on TTE *Hypophos/Ovi: improved *Acute cystitis. 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 Pt not aware of history Plan: -Continue IV antibiotics as per ID, on cefazolin, Likely 4 weeks treatment as per ID -PICC line placed -Continue chest drain care, Rads following -f/u CT chest -Ordered transesophageal echocardiogram to be scheduled as outpatient on discharge -Continue amlodipine 10mg/JORDAN inhibitor(increase)/as needed hydralazine, further adjustment per PCP -ASA -Discharge planning per case management for long-term antibiotic -pt/ot -ppx: heparin DNR
[2019-01-11] MEDS ORDERED: ASPIRIN 81 MG TAB.CHEW PO SCH (09:00)
[2019-01-11] MEDS ORDERED: ASPIRIN 325 MG ENTERIC COATED TABLET PO SCH (09:00)
[2019-01-11 09:37] LABS: Band Neutrophils % 6 % (0-10); Eosinophils % (Manual) 1 % (0-7); Lymphocytes % 9 % (15-49); Metamyelocytes % 1 % (0-0); Monocytes % (Manual) 8 % (1-12); Platelet Estimate NORMAL (NORMAL); Polychromasia FEW (NONE SEEN); RBC Morphology ABNORM (NORMAL); Segmented Neutrophils % 75 % (38-78); Toxic Granulation 1+ (NONE SEEN)
[2019-01-11] MEDS: POTASSIUM CHLORIDE 20 MEQ/15 ML ML PT SCH ×2 (09:44→17:58)
[2019-01-11] MEDS: LIDOCAINE PATCH TOPICAL SCH (09:46)
--- NOTE | 2019-01-11 10:07 | Cat Scan Report ---
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 Percutaneous drain was placed, however the tube is no longer draining COMPARISON: Preprocedure chest CT 01/05/2019 TECHNIQUE: 80 cc of Isovue-370 were injected intravenously, and 25 seconds later, 0.625 mm helical slices were obtained from the lung apices through the bases. Following reconstruction, 2.5 mm sagittal, coronal and axial reformations were processed and reviewed at lung, mediastinal and bone windows. 7 mm axial MIPS were also obtained to optimize pulmonary nodule detection. The exam was performed using radiation dose optimization techniques including, but not limited to, automated exposure control, adjustment of the mA and/or kV according to patient size and use of iterative reconstruction technique. FINDINGS: The extrapleural abscess in the left apex has, unfortunately, increased in size now spanning 8 x 3 cm. The pigtail drainage catheter has retracted and is now malpositioned in the intercostal space outside of the abscess capsule. Left pleural effusion has increased and is now moderate in size. There are now two small loculated pleural effusions in the anterior left upper lobe, 3 cm and 2 cm, respectively. There is compressive atelectasis of the entire left lower lobe which has worsened. Mild underlying centrilobular emphysema changes with scattered scarring periphery of both lungs seen as before. Mediastinal windows show the heart to be mildly enlarged. The thoracic aorta and pulmonary arteries are well opacified and normal in contour and caliber. Mildly enlarged reactive lymph nodes in the left hilum or mediastinum are unchanged. Esophagus is unremarkable. Thyroid shows no abnormality. Bones and soft tissues of the chest wall are normal. Images through the. There abdomen show no abnormality. IMPRESSION: 1. 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 The percutaneous drain is now dislodged with the pigtail now in the intercostal region. CT-guided placement of a larger drain will be performed. 2. Moderate left pleural effusion, increasing in size and resulting in compressive atelectasis of the entire left lower lobe. There are now two small loculated pleural effusions in the anterior left upper lobe - 3 cm and 2 cm respectively 3. Underlying mild centrilobular emphysema with scattered scarring both lungs stable. Interpreted and Authenticated by: Amrit Gasca 01/11/19
[2019-01-11 10:54] LABS: POC INR 1.1 (0.9-1.2); POC Pro Time 13.7 sec (11.9-14.5)
[2019-01-11] MEDS: FUROSEMIDE 20 MG/2 ML VIAL IV SCH (11:05)
[2019-01-11] MEDS: amLODIPine 5 MG TABLET PO SCH (11:05)
[2019-01-11] MEDS: LISINOPRIL 20 MG TABLET PO SCH (11:06)
[2019-01-11] MEDS: ENOXAPARIN 40 MG/0.4 ML SYRINGE SQ SCH (11:06)
[2019-01-11] MEDS: KETOROLAC TROMETHAMINE 3 ML DROPS OP SCH ×2 (11:13→22:34)
[2019-01-11] MEDS: TIMOLOL 0.5% OPHTH DROPS BOTTLE 5ML OU SCH ×2 (11:15→22:07)
[2019-01-11] MEDS: MUPIROCIN OINT 2% 22GM NARES SCH ×2 (12:36→22:06)
[2019-01-11] MEDS ORDERED: HYDROcodone/APAP 5/325MG TABLET PO PRN (15:10)
[2019-01-11] MEDS ORDERED: LIDOCAINE 2% 20 ML VIAL SQ ONE (15:16)
[2019-01-11] MEDS ORDERED: fentaNYL 100 MCG/2 ML VIAL IV PRN (15:28)
[2019-01-11] MEDS ORDERED: MIDAZOLAM 2 MG/2 ML VIAL IV PRN (15:28)
--- NOTE | 2019-01-11 17:31 | Infectious Disease Prog Note ---
Subjective Patient information: Note initiated : 01/11/19 at 5:24 pm Service Date, if different from initiated Date: [] Patient: Fiorella Leon 78 y/o F admitted on 01/02/19 for Shoulder pain, Change in LOC. Chief Complaint: [] Interval history: Pt is doing fine. Reports episodic chest pain on left side with deep breathing. Denied any fever, chills, n/v, diarrhea. Is due for upsizing of her chest wall catheter. The drainage bag had output of 17 ml for last 24 hrs. Shared some print outs about Staphylococcus aureus per pt request for her reading. Objective Objective Narrative: ao x 3, in nad no thrush chest has VBS b/l, decreased BS at bases s1 s2 normal, 2/6 systolic murmur at rt 2nd ICS bs ++ nttd no edema - Vital Signs Vital signs: Vital Signs Temp Pulse Pulse Resp BP BP Pulse Ox 01/11/19 15:15 75 16 153/64 96 01/11/19 15:00 75 16 164/52 97 01/11/19 14:45 75 16 154/48 97 01/11/19 14:40 75 16 152/54 98 01/11/19 14:35 78 16 135/49 97 01/11/19 14:30 78 16 143/54 96 01/11/19 14:25 83 16 112/54 95 01/11/19 14:20 83 16 166/52 97 01/11/19 14:15 81 16 151/82 97 01/11/19 11:41 36.4 C 94 H 22 155/69 94 01/11/19 08:14 81 20 01/11/19 08:00 36.9 C 86 18 144/72 90 01/11/19 03:50 160/68 01/11/19 03:40 82 22 01/11/19 03:10 36.7 C 83 24 H 185/74 91 01/10/19 23:28 36.6 C 70 22 145/60 92 01/10/19 21:16 71 138/60 01/10/19 19:43 36.6 C 81 24 H 209/83 93 Intake and Output 01/11/19 01/11/19 01/11/19 05:59 13:59 21:59 Intake Total 450 Output Total 480 650 Balance -30 -650 Intake: Oral 450 Output: Drainage 30 Left Upper T-Tube 30 Void Amount 450 650 Other: Urine Appearance Clear Clear Urine Color Bright Yellow Pale Urine Odor Normal Normal Intake & Output: Intake & Output 01/11/19 01/11/19 01/11/19 05:59 13:59 21:59 Intake Total 450 Output Total 480 650 Balance -30 -650 Intake: Oral 450 Output: Drainage 30 Left Upper T-Tube 30 Void Amount 450 650 Other: Urine Appearance Clear Clear Urine Color Bright Yellow Pale Urine Odor Normal Normal - Lab 01/12/19 04:20 01/12/19 04:20 Most recent lab results Calcium 8.5 mg/dl (8.6-10.4) L 01/11/19 06:00 Phosphorus 2.7 mg/dL (2.7-4.5) 01/09/19 04:00 Magnesium 1.9 mg/dL (1.6-2.5) 01/09/19 04:00 Microbiology 01/06/19 09:18 Blood Blood Culture - Final 01/06/19 09:41 Blood Blood Culture - Final 01/04/19 14:27 Blood Blood Culture - Final Staphylococcus aureus 01/04/19 15:36 Blood Blood Culture - Final 01/06/19 14:30 Lung - Left Gram Stain - Final 01/06/19 14:30 Lung - Left Abscess Culture - Final 01/02/19 17:00 Blood Blood Culture - Final Staphylococcus aureus 01/02/19 16:40 Urine - Clean Void Mid-Stream Urine Culture - Final 01/02/19 15:23 Blood Blood Culture - Final Staphylococcus aureus 01/04/19 03:52 Nose MRSA (PCR) - Final Medications Active Medications: Acetaminophen (Tylenol) 650 mg PO Q6HP PRN PRN Reason: PAIN/FEVER > 101 Last Admin: 01/10/19 19:40 Dose: 650 mg Documented by: Admin: 01/10/19 03:38 Dose: 650 mg Documented by: Admin: 01/09/19 21:15 Dose: 650 mg Documented by: Admin: 01/09/19 14:36 Dose: 650 mg Documented by: Admin: 01/09/19 03:35 Dose: 650 mg Documented by: Admin: 01/08/19 16:52 Dose: 650 mg Documented by: Admin: 01/06/19 18:38 Dose: 650 mg Documented by: Admin: 01/04/19 23:56 Dose: 650 mg Documented by: LAURA Albuterol/Ipratropium (Duoneb) 3 ml NEB Q4HP PRN PRN Reason: Shortness Of Breath Or Wheezing Last Admin: 01/11/19 08:06 Dose: 3 ml Documented by: DamasoXLHarmony Admin: 01/11/19 03:40 Dose: 3 ml Documented by: Admin: 01/09/19 19:45 Dose: 3 ml Documented by: Admin: 01/07/19 11:54 Dose: 3 ml Documented by: Admin: 01/06/19 05:35 Dose: 3 ml Documented by: Admin: 01/04/19 23:56 Dose: 3 ml Documented by: LAURA Alteplase, Recombinant (Cathflo) 6 mg IJ Q12H NNEKA Stop: 01/13/19 09:01 Amlodipine Besylate (Norvasc) 10 mg PO DAILY [facility] Last Admin: 01/11/19 11:05 Dose: 10 mg Documented by: Admin: 01/10/19 07:23 Dose: 10 mg Documented by: Admin: 01/09/19 10:53 Dose: 10 mg Documented by: Admin: 01/08/19 08:14 Dose: 10 mg Documented by: Admin: 01/07/19 09:51 Dose: 10 mg Documented by: Admin: 01/06/19 09:57 Dose: Not Given Documented by: NICANOR Non-Admin Reason: NPO Admin: 01/05/19 09:44 Dose: 10 mg Documented by: NICANOR Bisacodyl (Dulcolax) 10 mg PO DAILYP PRN PRN Reason: Constipation Cefazolin Sodium (Ancef) 2 gm IV Q8H NNEKA; Protocol Last Admin: 01/11/19 15:58 Dose: 2 gm Documented by: Admin: 01/11/19 06:07 Dose: 2 gm Documented by: Admin: 01/10/19 21:39 Dose: 2 gm Documented by: Admin: 01/10/19 14:12 Dose: 2 gm Documented by: Admin: 01/10/19 05:29 Dose: 2 gm Documented by: Admin: 01/09/19 21:13 Dose: 2 gm Documented by: Admin: 01/09/19 15:51 Dose: 2 gm Documented by: Admin: 01/09/19 05:20 Dose: 2 gm Documented by: Admin: 01/08/19 21:37 Dose: 2 gm Documented by: Admin: 01/08/19 13:52 Dose: 2 gm Documented by: Admin: 01/08/19 05:41 Dose: 2 gm Documented by: Admin: 01/07/19 21:38 Dose: 2 gm Documented by: Admin: 01/07/19 14:03 Dose: 2 gm Documented by: Admin: 01/07/19 05:30 Dose: 2 gm Documented by: Admin: 01/06/19 21:14 Dose: 2 gm Documented by: Admin: 01/06/19 15:38 Dose: 2 gm Documented by: Admin: 01/06/19 05:21 Dose: 2 gm Documented by: Admin: 01/05/19 21:16 Dose: 2 gm Documented by: Admin: 01/05/19 17:06 Dose: 2 gm Documented by: Admin: 01/05/19 05:31 Dose: 2 gm Documented by: Admin: 01/04/19 21:02 Dose: 2 gm Documented by: LAURA Clonidine HCl (Catapres) 0.1 mg PO QIDP PRN PRN Reason: sbp>150 Diphenhydramine HCl (Benadryl) 25 mg IV Q4HP PRN PRN Reason: Allergic Symptoms Last Admin: 01/10/19 21:38 Dose: 25 mg Documented by: GAURAV Enoxaparin Sodium (Lovenox) 40 mg SQ DAILY NNEKA Last Admin: 01/11/19 11:06 Dose: 40 mg Documented by: Admin: 01/10/19 07:21 Dose: 40 mg Documented by: Admin: 01/09/19 10:53 Dose: 40 mg Documented by: Admin: 01/08/19 08:15 Dose: 40 mg Documented by: Admin: 01/07/19 09:52 Dose: 40 mg Documented by: Admin: 01/06/19 10:10 Dose: 40 mg Documented by: Admin: 01/05/19 09:44 Dose: 40 mg Documented by: NICANOR Fentanyl (Sublimaze) 0 mcg IV PRN PRN PRN Reason: conscious sedation Stop: 01/11/19 18:30 Last Admin: 01/11/19 14:15 Dose: 100 mcg Documented by: JESSA Comments: 1415--50mcg given per MD now 1435--50mcg titrated per MD now Furosemide (Lasix) 20 mg IV DAILY [facility] Admin: 01/11/19 11:05 Dose: 20 mg Documented by: Admin: 01/10/19 07:23 Dose: 20 mg Documented by: Admin: 01/09/19 10:53 Dose: 20 mg Documented by: Admin: 01/08/19 08:18 Dose: 20 mg Documented by: Admin: 01/07/19 09:51 Dose: 20 mg Documented by: Admin: 01/06/19 10:10 Dose: 20 mg Documented by: NICANOR Heparin Sodium (Porcine) (Heparin Flush) 2 ml IV Q12 [facility] Admin: 01/11/19 11:07 Dose: 2 ml Documented by: Admin: 01/10/19 21:40 Dose: 2 ml Documented by: Admin: 01/10/19 11:52 Dose: 2 ml Documented by: Admin: 01/09/19 21:13 Dose: 2 ml Documented by: Admin: 01/09/19 10:52 Dose: 2 ml Documented by: Admin: 01/08/19 21:25 Dose: 2 ml Documented by: LUISA Hydralazine HCl (Apresoline) 20 mg IV Q2HP PRN PRN Reason: Hypertension Magnesium Sulfate (Magnesium Sulfate) 2 gm in 50 mls @ 50 mls/hr IV UD PRN PRN Reason: Mag < or = 1.7 Ketorolac Tromethamine (Ketorolac Tromethamine) 0 ml OP BID [facility] Last Admin: 01/11/19 11:13 Dose: 3 ml Documented by: YOGI Comments: 1 drop per eye Admin: 01/10/19 21:53 Dose: Not Given Documented by: GAURAV Non-Admin Reason: Patient Request Admin: 01/10/19 11:53 Dose: 3 ml Documented by: Admin: 01/09/19 21:14 Dose: Not Given Documented by: LUISA Non-Admin Reason: Patient Refused Admin: 01/09/19 11:24 Dose: 1 ml Documented by: Admin: 01/08/19 21:26 Dose: Not Given Documented by: LUISA Non-Admin Reason: Patient Refused Admin: 01/08/19 08:19 Dose: Not Given Documented by: KELLY Non-Admin Reason: Patient Refused Admin: 01/07/19 20:11 Dose: Not Given Documented by: SERENE Non-Admin Reason: Patient Refused Admin: 01/07/19 09:53 Dose: 3 ml Documented by: Admin: 01/06/19 21:16 Dose: 1 ml Documented by: Admin: 01/06/19 10:10 Dose: 3 ml Documented by: Admin: 01/05/19 21:19 Dose: Not Given Documented by: NICK Non-Admin Reason: Patient Refused Admin: 01/05/19 10:14 Dose: 1 ml Documented by: NICANOR Comments: Would not scan Admin: 01/04/19 21:04 Dose: 1 ml Documented by: LAURA Comments: barcode unable to scan for all eye medications Latanoprost (Xalatan Ophth Drops) 1 gtt OU HS [facility] Last Admin: 01/10/19 21:42 Dose: 1 gtt Documented by: Admin: 01/09/19 21:14 Dose: 1 gtt Documented by: Admin: 01/08/19 21:27 Dose: 1 gtt Documented by: Admin: 01/07/19 20:12 Dose: 1 gtt Documented by: Admin: 01/06/19 21:17 Dose: 1 gtt Documented by: Admin: 01/05/19 21:19 Dose: 1 gtt Documented by: Admin: 01/04/19 21:04 Dose: 1 gtt Documented by: LAURA Lidocaine (Lidoderm) 1 patch TOPICAL DAILY@1000 [facility] Last Admin: 01/11/19 09:46 Dose: 1 patch Documented by: YOGI Lisinopril (Zestril) 20 mg PO DAILY [facility] Last Admin: 01/11/19 11:06 Dose: 20 mg Documented by: YOGI Magnesium Hydroxide (Milk Of Magnesia) 30 ml PO DAILYP PRN PRN Reason: Constipation Midazolam HCl (Versed) 0 mg IV PRN PRN PRN Reason: conscious sedation Stop: 01/11/19 18:00 Last Admin: 01/11/19 14:15 Dose: 2 mg Documented by: JESSA Comments: 1415--1mg given per MD now 1500--1mg given per MD to flush drain Morphine Sulfate (Morphine) 1 - 3 mg IV Q3HP PRN PRN Reason: PAIN LEVEL > 6 Mupirocin (Bactroban Oint 2%) 1 dose NARES BID [facility] Last Admin: 01/11/19 12:36 Dose: Not Given Documented by: YOGI Non-Admin Reason: Patient Refused Admin: 01/10/19 21:42 Dose: 1 dose Documented by: Admin: 01/10/19 11:53 Dose: 1 dose Documented by: Admin: 01/09/19 21:23 Dose: 1 dose Documented by: Admin: 01/09/19 11:24 Dose: 1 dose Documented by: Admin: 01/08/19 21:25 Dose: 1 dose Documented by: Admin: 01/08/19 08:16 Dose: 1 dose Documented by: Admin: 01/07/19 20:11 Dose: 1 dose Documented by: Admin: 01/07/19 09:52 Dose: 1 dose Documented by: Admin: 01/06/19 21:14 Dose: 1 dose Documented by: Admin: 01/06/19 10:08 Dose: 1 dose Documented by: Admin: 01/05/19 21:18 Dose: 1 dose Documented by: Admin: 01/05/19 09:45 Dose: 1 dose Documented by: Admin: 01/04/19 21:06 Dose: 1 dose Documented by: NSTOVER Comments: barcode not scanning - saying discontinued Ondansetron HCl (Zofran) 4 mg IV Q4HP PRN PRN Reason: Nausea And Vomiting Pantoprazole Sodium (Protonix) 40 mg PO QAMAC [facility] Admin: 01/11/19 07:40 Dose: 40 mg Documented by: Admin: 01/10/19 07:22 Dose: 40 mg Documented by: Admin: 01/09/19 08:35 Dose: 40 mg Documented by: Admin: 01/08/19 08:16 Dose: 40 mg Documented by: Admin: 01/07/19 07:24 Dose: 40 mg Documented by: Admin: 01/06/19 09:57 Dose: Not Given Documented by: NICANOR Non-Admin Reason: NPO Admin: 01/05/19 09:45 Dose: 40 mg Documented by: NICANOR Potassium Chloride (Potassium Chloride) 15 meq PT BIDCC [facility] Admin: 01/11/19 09:44 Dose: Not Given Documented by: YOGI Non-Admin Reason: pt refused Admin: 01/10/19 16:31 Dose: 15 meq Documented by: Admin: 01/10/19 07:21 Dose: 15 meq Documented by: Admin: 01/09/19 17:35 Dose: 15 meq Documented by: Admin: 01/09/19 08:44 Dose: 15 meq Documented by: Admin: 01/08/19 16:52 Dose: 15 meq Documented by: Admin: 01/08/19 08:16 Dose: 15 meq Documented by: Admin: 01/07/19 17:53 Dose: 15 meq Documented by: HOPE Sodium Chloride (Saline Flush) 10 ml IV Q8 [facility] Admin: 01/11/19 15:58 Dose: 10 ml Documented by: Admin: 01/11/19 06:07 Dose: 10 ml Documented by: Admin: 01/10/19 21:40 Dose: 10 ml Documented by: Admin: 01/10/19 14:14 Dose: 10 ml Documented by: Admin: 01/10/19 11:54 Dose: 10 ml Documented by: Admin: 01/10/19 07:21 Dose: 10 ml Documented by: Admin: 01/10/19 05:28 Dose: 10 ml Documented by: Admin: 01/09/19 21:18 Dose: 10 ml Documented by: Admin: 01/09/19 15:51 Dose: 10 ml Documented by: Admin: 01/09/19 05:20 Dose: 10 ml Documented by: Admin: 01/08/19 21:26 Dose: 10 ml Documented by: Admin: 01/08/19 13:52 Dose: 10 ml Documented by: Admin: 01/08/19 05:41 Dose: 10 ml Documented by: Admin: 01/07/19 21:39 Dose: 10 ml Documented by: Admin: 01/07/19 14:04 Dose: 10 ml Documented by: Admin: 01/07/19 05:30 Dose: 10 ml Documented by: Admin: 01/06/19 21:18 Dose: 10 ml Documented by: Admin: 01/06/19 15:38 Dose: 10 ml Documented by: Admin: 01/06/19 05:22 Dose: 10 ml Documented by: Admin: 01/05/19 21:20 Dose: 10 ml Documented by: Admin: 01/05/19 17:06 Dose: 10 ml Documented by: Admin: 01/05/19 05:32 Dose: 10 ml Documented by: Admin: 01/04/19 21:02 Dose: 10 ml Documented by: LAURA Sodium Chloride (Saline Flush) 10 ml IV UD PRN PRN Reason: FLUSH Sodium Chloride (Saline Flush) 10 ml IV Q12 NNEKA Last Admin: 01/11/19 11:16 Dose: 10 ml Documented by: Admin: 01/10/19 21:43 Dose: 10 ml Documented by: Admin: 01/10/19 14:13 Dose: 10 ml Documented by: Admin: 01/10/19 11:55 Dose: 10 ml Documented by: Admin: 01/09/19 21:23 Dose: Not Given Documented by: LUISA Non-Admin Reason: Duplicate Admin: 01/09/19 10:54 Dose: 10 ml Documented by: Admin: 01/08/19 21:28 Dose: Not Given Documented by: LUISA Non-Admin Reason: Duplicate Timolol Maleate (Timoptic 0.5% Ophth Drops) 1 gtt OU BID NNEKA Last Admin: 01/11/19 11:15 Dose: 1 gtt Documented by: Admin: 01/10/19 21:41 Dose: 1 gtt Documented by: Admin: 01/10/19 11:54 Dose: 1 gtt Documented by: Admin: 01/09/19 21:14 Dose: 1 gtt Documented by: Admin: 01/09/19 11:23 Dose: 1 gtt Documented by: Admin: 01/08/19 21:28 Dose: 1 gtt Documented by: Admin: 01/08/19 08:19 Dose: 1 gtt Documented by: Admin: 01/07/19 20:13 Dose: 1 gtt Documented by: Admin: 01/07/19 09:54 Dose: 1 gtt Documented by: Admin: 01/06/19 21:17 Dose: 1 gtt Documented by: Admin: 01/06/19 10:11 Dose: 1 gtt Documented by: NICANOR Comments: will not scan Admin: 01/05/19 21:20 Dose: 1 gtt Documented by: Admin: 01/05/19 10:15 Dose: 1 gtt Documented by: Admin: 01/04/19 21:04 Dose: 1 gtt Documented by: LAURA Tramadol HCl (Ultram) 50 mg PO Q4HP PRN PRN Reason: Pain Last Admin: 01/11/19 03:10 Dose: 50 mg Documented by: Admin: 01/10/19 16:31 Dose: 50 mg Documented by: Admin: 01/10/19 07:22 Dose: 50 mg Documented by: Admin: 01/10/19 03:37 Dose: 50 mg Documented by: Admin: 01/09/19 23:09 Dose: 50 mg Documented by: Admin: 01/09/19 19:06 Dose: 50 mg Documented by: Admin: 01/09/19 13:44 Dose: 50 mg Documented by: Admin: 01/09/19 08:36 Dose: 50 mg Documented by: Admin: 01/09/19 02:54 Dose: 50 mg Documented by: Admin: 01/08/19 19:55 Dose: 50 mg Documented by: Admin: 01/08/19 13:52 Dose: 50 mg Documented by: Admin: 01/08/19 04:34 Dose: 50 mg Documented by: Admin: 01/07/19 21:41 Dose: 50 mg Documented by: Admin: 01/07/19 17:53 Dose: 50 mg Documented by: Admin: 01/07/19 14:03 Dose: 50 mg Documented by: Admin: 01/06/19 15:52 Dose: 50 mg Documented by: Admin: 01/05/19 17:06 Dose: 50 mg Documented by: Admin: 01/05/19 00:08 Dose: 50 mg Documented by: LAURA Assessment and Plan - Narrative A/P Narrative: A: 1. MSSA bacteremia: 2/2 sets +ve on 01/02, 1/2 sets on 01/04 - blood Cx neg since 01/06 - likely source skin breakdown due to eczematous skin lesions over the legs. s/p decolonization for 5 days - TTE report neg for any vegetations, mod MR 2. Left upper chest wall extrapleural abscess: - initial size of (3 x 7 cm) on 01/06 -----------------> increased to size of 7 x [address] chest today - s/p IR guided drainage 01/06, with catheter malfunction, and because of increase in size; was upgraded to a larger bore catheter today. The abscess is 1/3 of its size after drainage. Of note pt refused CTS consultation for possible surgery for abscess drainage - sec to seeding from MSSA bacteremia - growing MSSA on cultures Recommendations: - Continue IV Cefazolin 2 gm q8 hrs, day 6 - Agree with IR-guided drainage and upsizing of catheter - aggressive saline flushes per IR recs. TPA instillation per IR recs - will tentatively plan for a 4 week course with ID clinic f/u - GABRIELA scheduled as OP - repeat CT chest on to assess cavity size will follow Feliberto Vuong MD Infectious diseases
[2019-01-11] MEDS: ALTEPLASE 2 MG VIAL IJ SCH (17:58)
--- NOTE | 2019-01-11 19:14 | Cat Scan Report ---
CLINICAL INFORMATION: Extrapleural abscess in the left lung apex. TECHNIQUE: The procedure and risks including the possibility of bleeding, infection, pneumothorax and inadequate fluid drainage were explained to the patient. She understood and wished to proceed. She was medicated prior to and during the procedure with 2 mg of versed and 1 mg of fentanyl given intravenously low blood pressure and pulse oximetry were monitored. She maintained consciousness during the procedure. Total sedation time 45 minutes. With the patient's supine position, the abscess was first CT localized. Pre-existing 6 Palestinian catheter was removed. The skin overlying the abscess was marked, prepped and locally anesthetized. The the anterior first intercostal space level with 1% lidocaine using 25-gauge spinal needle. A 17-gauge stylette was then placed, under CT guidance, into the lateral aspect of the abscess cavity. Through this guide needle, a 0.035 J-wire was coiled in the cavity and the tract was subsequently dilated to 12 Palestinian. A 12 Palestinian pigtail catheter was placed over stiffener into the cavity. Approximately 30 cc of congealed blood was aspirated. It was then very vigorously irrigated with multiple 10 cc aliquots of saline. Post procedure scanning shows the abscess cavity to be approximately one half of its original size. The tube was left to gravity bag drainage IMPRESSION: Successful CT-guided placement of 12 Palestinian pigtail percutaneous drainage catheter in the extrapleural abscess in the left lung apex. Approximately 30 cc of congealed blood was aspirated. The cavity was then vigorously irrigated with 15 cc aliquot of normal sterile saline and left to gravity bag drainage. Postdrainage scanning shows the cavity approximately one half its original size. Suggest: continued vigorous saline irrigation using 15 cc aliquots, four and back, every four hours. In addition, suggest alteplase 6 mg and 25 cc of normal sterile saline placed into the cavity of the tube closed for two hours. Twice q. day Interpreted and Authenticated by: Amrit Gasca 01/11/19
[2019-01-11] MEDS: ACETAMINOPHEN 325 MG TABLET PO PRN (20:18)
[2019-01-11] MEDS ORDERED: LISINOPRIL 5 MG TABLET PO SCH (21:00)
[2019-01-11] MEDS: LATANOPROST OPHTH DROPS 2.5ML BOTTLE OU SCH (22:06)
[2019-01-12] MEDS: cloNIDine HCL 0.1 MG TABLET PO PRN ×2 (04:05→20:58)
[2019-01-12 05:58] LABS: Hematocrit 30.3 % (36.0-48.0); Hemoglobin 9.9 g/dL (12.0-15.0); Mean Cell Volume 87.2 fL (80.0-100.0); Mean Corpuscular HGB Conc 32.7 g/dL (31.0-36.0); Mean Platelet Volume 8.8 fL (7.4-10.4); Platelet Count 440 K/mcL (140-440); RBC 3.48 M/mcL (4.00-5.20); Red Cell Distribution Width 13.9 % (11.5-14.5); WBC 14.1 K/mcL (4.5-11.0)
[2019-01-12] MEDS: 0.9 % SODIUM CHLORIDE 10 ML SYRINGE IV SCH ×5 (06:09→21:04)
[2019-01-12] MEDS: ceFAZolin 1 GM VIAL IV SCH ×3 (06:09→21:01)
[2019-01-12 06:35] LABS: ALT/SGPT < 5 U/l (0-40); AST/SGOT 14 U/l (0-37); Albumin 2.7 gm/dL (3.2-5.2); Albumin/Globulin Ratio 0.6 (1.0-2.3); Alkaline Phosphatase 66 U/L (39-117); Bilirubin,Direct < 0.2 mg/dL (0.0-0.3); Bilirubin,Total 0.3 mg/dL (0.0-1.0); Blood Urea Nitrogen 13 mg/dl (8-23); Calcium 8.6 mg/dl (8.6-10.4); Carbon Dioxide 28 mmol/L (22-30); Chloride 92 mmol/L (96-108); Globulin 4.4 gm/dL (2.2-3.7); Glomerular Filtration Rate 84; Glucose 106 mg/dL (70-105); Lactate Dehydrogenase 246 U/L (94-250); Phosphorous 2.8 mg/dL (2.7-4.5); Triglycerides 67 mg/dl (<150); Uric Acid 3.2 mg/dL (2.5-8.0)
[2019-01-12 06:51] LABS: Band Neutrophils % 4 % (0-10); Eosinophils % (Manual) 1 % (0-7); Lymphocytes % 8 % (15-49); Monocytes % (Manual) 11 % (1-12); Platelet Estimate NORMAL (NORMAL); RBC Morphology NORMAL (NORMAL); Segmented Neutrophils % 76 % (38-78); Toxic Granulation 1+ (NONE SEEN)
[2019-01-12] MEDS: PANTOPRAZOLE 40 MG TABLET PO SCH (07:36)
[2019-01-12] MEDS: POTASSIUM CHLORIDE 20 MEQ/15 ML ML PT SCH ×2 (07:36→17:43)
--- NOTE | 2019-01-12 08:13 | Internal Med Progress Note ---
Medical - PN: Subj Patient information: Note initiated : 01/12/19 at 8:07 am Service Date, if different from initiated Date: [] Patient: Fiorella Leon a 78 y/o F admitted on 01/02/19 for Shoulder pain, Change in LOC. Chief Complaint: [] Interval history: Ms. Leon is a 78 year old F who presents to the emergency department brought in by her with concerns of confusion. Apparently she had not been doing well for the last few days, however was just seen here yesterday with main complaint of left shoulder pain and was diagnosed with muscle spasm. She was prescribed Flexeril, it is unclear if she is taking many of those tablets. She reports back to the ED with her quite confused. Apparently she did not follow much conversation and could not give much history upon arrival though did improve after fluids. Evaluation in the emergency department shows evidence of urinary tract infection with sepsis, white count of 20 and encephalopathy. Location: Systemic; timing: Onset 1 to 2 days ago; severity: Moderate; associated symptoms: As in review of systems. Patient felt feverish last evening, she felt chilled but did not have shaking chills. She occasionally has a headache, but none currently. No neck pain or stiffness. She had some mild nausea this morning but no emesis. She is had no abdominal pain. She has had no diarrhea. She has had some dysuria. In the emergency department, the patient is also noted to be extremely hypertensive with systolic blood pressures in the 200s and diastolics in the 110's. Patient was trying to describe that she had had a hypertensive reaction to a treatment for her glaucoma but is still little confused and cannot really provide details. According to her , her blood pressure may have been high for a while but she has never been treated for hypertension. She is now being admitted for treatment of sepsis from urinary source. 01/03-seen at bedside with her and nursing. She is less confused this afternoon and is starting to feel better. Blood cultures are positive for gram- positive cocci in both sets. Urine culture is without growth. Vancomycin added to regimen. Patient really had not been having fevers chills. She has been feeling poorly for a few days prior to presenting to the hospital however. She does have some wounds in the lower legs where she has scratched at areas of eczema. 2continues to improve. Mentation seems back to normal. Did have episode of chest tightness this morning, she is noted similar episodes in the past. Occurred at rest. She had had systolic blood pressure in the 200 range, had received hydralazine the time of onset with blood pressure down to the 140s. Cultures have identified pansensitive Staphylococcus aureus. Discussed with infectious disease, echo is ordered, will also obtain CT of the chest as well as the left shoulder where she has been having some pain. eveloped some dyspnea just about midnight. Also had low-grade fever. Received acetaminophen and breathing treatment. Also received 20 mg of Lasix with significant improvement in dyspnea. Feel little more dyspneic this morning as well. Review of intake/output shows she is about 6 L positive. Discussed with Dr. Vuong for infectious disease. CT scan images reviewed with him. Form al report now shows probable abscess in the left upper lung region extrapleural space. Still with left shoulder pain, query if it is related to the abscess. 01/06-patient feels a lot better since admission. at bedside. Discussed blood cultures/imaging findings and treatment plan. Abscess drainage scheduled for 2 PM. Surveillance cultures from 01/04+ for gram-positive cocci. MSSA on initial cultures. On IV cefazolin as per ID. ID recommends transesophageal echocardiogram as outpatient. Continuing antibiotic coverage. White count down from 20,200-12.6. Potassium improved from 2.8-3.3. UA pyuria. Remains afebrile. 01/07-pansensitive staph aureus currently on cefazolin. ID recommends at least 4 weeks antibiotics. Potassium 3.1 on replacement. White count 12.3. Will require outpatient transesophageal echocardiogram. Surveillance blood cultures negative so far. 01/08-patient doing well. No overnight events. Drain output over 30 cc left anterior chest. Pansensitive staph aureus. Surveillance cultures from 01/06- so far. Continuing IV antibiotics as per id. PICC line placement today. No overnight fever chills. White count 11.4. Potassium 3.6, phosphorus up to 2.5 01/09 Feeling better. No overnight events. No new complaints. Cough much improved. No real noticeable shortness of breath. Occasional headache 01/10 Quite a bit of drainage after TPA via catheter overnight. No overnight events. Does have a little bit of left upper chest discomfort where the catheter is in place. 01/11 She has been having crampy left upper chest pain in the evenings since the TPA was delivered, and causing pleuritic pain. There was no other complaints. 01/12 Slept well. Feeling better. Patient cough. Does still have some shortness of breath because she feels pain when she takes a deep breath. Otherwise no complaints. Review of Systems: denies fever/chills/nausea/vomiting/abdominal pain/diarrhea. Otherwise see above. - Constitutional Vitals: Vital Signs Temp Pulse Resp BP Pulse Ox 98.4 F 74 24 H 159/60 90 01/12/19 04:00 01/12/19 04:00 01/12/19 04:00 01/12/19 04:00 01/12/19 04:00 Period Temp Pulse Resp BP Sys/Mccullough Pulse Ox Last 24 Hr 97.6 F-99.5 F 74-94 16-28 112-166/48-86 90-98 Intake and Output 01/11/19 01/12/19 01/12/19 21:59 05:59 13:59 Intake Total 155 280 Output Total 215 138 200 Balance -60 142 -200 Weight 79.832 kg Intake & Output: Intake & Output 01/11/19 01/12/19 01/12/19 21:59 05:59 13:59 Intake Total 155 280 Output Total 215 138 200 Balance -60 142 -200 Weight 79.832 kg Intake: Oral 120 250 Input, Drain Irrigation Amount 35 30 Left Upper T-Tube 35 30 Output: Drainage 15 48 Left Upper T-Tube 15 48 Drainage 90 Left Upper T-Tube 90 Void Amount 200 200 Other: Meal Dinner Percent of Meal Consumed 100% Feeding Ability Independent Urine Appearance Clear Urine Color Pale # Voids 1 Exam: General: Alert, Awake, No acute Distress Eyes/N/T: EOMI, Head/Neck: neck supple, CV: RRR, No murmurs, Pulm: Diminished left upper lobe, mild TTP left later upper chest wall. no wheezing. chest tube replaced with 12f Abd: soft, nontender, +BS x4 Ext: no clubbing/cyanosis/edema Neuro: Alert, no focal deficits, moves all extremities, Skin: warm/dry Medical - PN: Obj Da - Labs CBC & Chem 7: 01/12/19 04:20 01/12/19 04:20 Labs: Abnormal Lab Results 01/12/19 01/12/19 01/11/19 04:20 04:20 06:00 WBC 14.1 H RBC 3.48 L Hgb 9.9 L Hct 30.3 L Gran % Lymph % (Auto) Gran # Lymph # (Auto) [place] # (Auto) Lymphocytes % 8 L 9 L Metamyelocytes % 1 H WBC Morphology Abnorm A Abnorm A Toxic Granulation 1+ A 1+ A RBC Morphology Abnorm A Polychromasia Few A Sodium 130 L Chloride 92 L Glucose 106 H Calcium Albumin 2.7 L Globulin 4.4 H Albumin/Globulin Ratio 0.6 L 01/11/19 01/11/19 01/10/19 06:00 06:00 04:45 WBC 13.3 H RBC 3.59 L Hgb 10.3 L Hct 31.2 L Gran % 83.2 H Lymph % (Auto) 6.6 L Gran # 11.0 H Lymph # (Auto) 0.9 L [place] # (Auto) 1.3 H Lymphocytes % Metamyelocytes % WBC Morphology Toxic Granulation RBC Morphology Polychromasia Sodium 132 L 131 L Chloride 95 L 92 L Glucose 128 H 131 H Calcium 8.5 L Albumin Globulin Albumin/Globulin Ratio 01/10/19 04:45 WBC 11.2 H RBC 3.75 L Hgb 10.7 L Hct 32.3 L Gran % 78.2 H Lymph % (Auto) 8.9 L Gran # 8.8 H Lymph # (Auto) 1.0 L [place] # (Auto) 1.3 H Lymphocytes % Metamyelocytes % WBC Morphology Toxic Granulation RBC Morphology Polychromasia Sodium Chloride Glucose Calcium Albumin Globulin Albumin/Globulin Ratio Meds: Medications Acetaminophen (Tylenol) 650 mg PO Q6HP PRN PRN Reason: PAIN/FEVER > 101 Last Admin: 01/11/19 20:18 Dose: 650 mg Documented by: Albuterol/Ipratropium (Duoneb) 3 ml NEB Q4HP PRN PRN Reason: Shortness Of Breath Or Wheezing Last Admin: 01/11/19 20:01 Dose: 3 ml Documented by: Alteplase, Recombinant (Cathflo) 6 mg IJ Q12H NNEKA Stop: 01/13/19 09:01 Last Admin: 01/11/19 17:58 Dose: 6 mg Documented by: Amlodipine Besylate (Norvasc) 10 mg PO DAILY [facility] Last Admin: 01/11/19 11:05 Dose: 10 mg Documented by: Bisacodyl (Dulcolax) 10 mg PO DAILYP PRN PRN Reason: Constipation Cefazolin Sodium (Ancef) 2 gm IV Q8H [facility]; Protocol Last Admin: 01/12/19 06:09 Dose: 2 gm Documented by: Clonidine HCl (Catapres) 0.1 mg PO QIDP PRN PRN Reason: sbp>150 Last Admin: 01/12/19 04:05 Dose: 0.1 mg Documented by: Diphenhydramine HCl (Benadryl) 25 mg IV Q4HP PRN PRN Reason: Allergic Symptoms Last Admin: 01/10/19 21:38 Dose: 25 mg Documented by: Enoxaparin Sodium (Lovenox) 40 mg SQ DAILY [facility] Last Admin: 01/11/19 11:06 Dose: 40 mg Documented by: Furosemide (Lasix) 20 mg IV DAILY [facility] Last Admin: 01/11/19 11:05 Dose: 20 mg Documented by: Heparin Sodium (Porcine) (Heparin Flush) 2 ml IV Q12 [facility] Last Admin: 01/11/19 22:05 Dose: 2 ml Documented by: Hydralazine HCl (Apresoline) 20 mg IV Q2HP PRN PRN Reason: Hypertension Last Admin: 01/11/19 19:32 Dose: 20 mg Documented by: Magnesium Sulfate (Magnesium Sulfate) 2 gm in 50 mls @ 50 mls/hr IV UD PRN PRN Reason: Mag < or = 1.7 Ketorolac Tromethamine (Ketorolac Tromethamine) 0 ml OP BID [facility] Last Admin: 01/11/19 22:34 Dose: Not Given Documented by: Latanoprost (Xalatan Ophth Drops) 1 gtt OU HS [facility] Last Admin: 01/11/19 22:06 Dose: 1 gtt Documented by: Lidocaine (Lidoderm) 1 patch TOPICAL DAILY@1000 [facility] Last Admin: 01/11/19 09:46 Dose: 1 patch Documented by: Lisinopril (Zestril) 20 mg PO DAILY [facility] Last Admin: 01/11/19 11:06 Dose: 20 mg Documented by: Magnesium Hydroxide (Milk Of Magnesia) 30 ml PO DAILYP PRN PRN Reason: Constipation Morphine Sulfate (Morphine) 1 - 3 mg IV Q3HP PRN PRN Reason: PAIN LEVEL > 6 Mupirocin (Bactroban Oint 2%) 1 dose NARES BID [facility] Last Admin: 01/11/19 22:06 Dose: 1 dose Documented by: Ondansetron HCl (Zofran) 4 mg IV Q4HP PRN PRN Reason: Nausea And Vomiting Pantoprazole Sodium (Protonix) 40 mg PO QAMAC [facility] Last Admin: 01/12/19 07:36 Dose: 40 mg Documented by: Potassium Chloride (Potassium Chloride) 15 meq PT BIDCC [facility] Last Admin: 01/12/19 07:36 Dose: Not Given Documented by: Sodium Chloride (Saline Flush) 10 ml IV Q8 [facility] Last Admin: 01/12/19 06:09 Dose: 10 ml Documented by: Sodium Chloride (Saline Flush) 10 ml IV UD PRN PRN Reason: FLUSH Sodium Chloride (Saline Flush) 10 ml IV Q12 [facility] Last Admin: 01/11/19 22:06 Dose: 10 ml Documented by: Timolol Maleate (Timoptic 0.5% Ophth Drops) 1 gtt OU BID [facility] Last Admin: 01/11/19 22:07 Dose: 1 gtt Documented by: Tramadol HCl (Ultram) 50 mg PO Q4HP PRN PRN Reason: Pain Last Admin: 01/11/19 22:07 Dose: 50 mg Documented by: Medical - PN: A/P - Time Spent With Patient Total time spent is greater than 50% in coordination of care (as documented) at patient's floor/unit and/or counseling patient: - Narrative A/P Narrative: A: *Sepsis: 2/2 MSSA bacteremia -Leukocytosis improved, but bumping up again (pt feels better today, at procedure yesterday) *JUANA abscess: s/p CT-guided drain placement with replacement to 12f catheter (01/11) and irrigation - *MSSA bacteremia: -surveillance cultures since 01/04 negative -no vegetations noted on TTE *Hypophos/Ovi: improved *Acute cystitis. 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 Pt not aware of history Plan: -Continue IV antibiotics as per ID, on cefazolin, Likely 4 weeks treatment as per ID -PICC line placed -Continue chest drain care, Rads following, tpa -f/u CT chest on -GABRIELA scheduled at [facility] on at 10am as outpatient -Continue amlodipine 10mg/JORDAN inhibitor(increase)/as needed hydralazine, further adjustment per PCP -will start ASA when bloody drainage improved from chest catheter -Discharge planning per case management for long-term antibiotic -pt/ot -ppx: heparin DNR
[2019-01-12] MEDS ORDERED: 0.9 % SODIUM CHLORIDE 250 ML IV ONE (08:33)
[2019-01-12] MEDS: ENOXAPARIN 40 MG/0.4 ML SYRINGE SQ SCH (09:15)
[2019-01-12] MEDS: SODIUM CHLORIDE 1 GM TABLET PO SCH ×3 (09:16→21:05)
[2019-01-12] MEDS: FUROSEMIDE 20 MG/2 ML VIAL IV SCH (09:16)
[2019-01-12] MEDS: amLODIPine 5 MG TABLET PO SCH (09:16)
[2019-01-12] MEDS: LISINOPRIL 20 MG TABLET PO SCH (09:16)
[2019-01-12] MEDS: MUPIROCIN OINT 2% 22GM NARES SCH ×2 (09:17→20:59)
[2019-01-12] MEDS: KETOROLAC TROMETHAMINE 3 ML DROPS OP SCH ×2 (09:18→21:00)
[2019-01-12] MEDS: TIMOLOL 0.5% OPHTH DROPS BOTTLE 5ML OU SCH ×2 (09:19→21:02)
[2019-01-12] MEDS: LIDOCAINE PATCH TOPICAL SCH (10:08)
[2019-01-12] MEDS: traMADol 50 MG TABLET PO PRN ×2 (10:20→20:56)
[2019-01-12] MEDS: ALTEPLASE 2 MG VIAL IJ SCH ×3 (11:17→20:55)
--- NOTE | 2019-01-12 13:11 | XRay Report ---
CLINICAL INFORMATION: POST LT THORA COMPARISON: None. FINDINGS: Heart size, mediastinum and pulmonary vessels are unremarkable. Left PICC line is stable satisfactory position. A new 12 [place] pigtail catheter overlies the the first interspace in stable position from the CT. The left apical abscess has decreased Hiral since the x-ray three days prior now spanning 5 cm. Left pleural effusion has decreased following left thoracentesis with a small moderate residual. There is no pneumothorax or other complication. Mild atelectasis left base noted. Right lung is well expanded and clear. IMPRESSION: 1. Following left thoracentesis, only a [id number] residual left pleural effusion. No pneumothorax or other complication. 2. Known left apical extrapleural abscess has decreased considerably since comparison x-ray three days prior. Interpreted and Authenticated by: Amrit Gasca 01/12/19
--- NOTE | 2019-01-12 14:13 | Ultrasound Report ---
Ultrasound-guided left thoracentesis CLINICAL INFORMATION: Moderate left pleural effusion TECHNIQUE: Procedure and risks including possibility of bleeding, infection, and pneumothorax were explained to the patient. They understood and wished to proceed. With the patient in upright position, the fluid was first sonographically localized over the posterior left 10th intercostal space at posterior axillary line. The skin overlying this region was marked, prepped and locally anesthetized with 1% lidocaine using a 25-gauge needle to the level the parietal pleura. An 18-gauge Yueh needle was then advanced under sonographic guidance into the pleural fluid and 600 cc of hemorrhagic pleural fluid was aspirated. Post procedure scanning shows only modest residual fluid. Patient tolerated procedure well without apparent complication. Follow-up chest x-ray to be obtained IMPRESSION: Successful thoracentesis yielding 600 cc of hemorrhagic pleural fluid. No apparent complication Interpreted and Authenticated by: Amrit Gasca 01/12/19
[2019-01-12 14:36] LABS: Glucose,Pleural Fluid 95 mg/dL; LDH,Pleural Fluid 961 U/L; pH,Body Fluid 7.49
[2019-01-12 15:36] LABS: Basophils,Pleural Fluid 1 %; Eosinophils,Pleural Fluid 2 %; Lymphocytes,Pleural Fluid 24 %; Monocytes,Pleural Fluid 5 %; Neutrophils,Pleural Fluid 66 %; Other Cells,Pleural Cells 1 %; Plasma Cell,Pleural Fluid 1 %
[2019-01-12 15:39] LABS: Appearance,Pleural Fluid TURBID; Color,Pleural Fluid RED; RBC,Pleural Fluid > 100000 /cumm
--- NOTE | 2019-01-12 18:08 | Infectious Disease Prog Note ---
Subjective Patient information: Note initiated : 01/12/19 at 6:02 pm Service Date, if different from initiated Date: [] Patient: Fiorella Leon 78 y/o F admitted on 01/02/19 for Shoulder pain, Change in LOC. Chief Complaint: [] Interval history: Pt doing well. Endorses left sided chest pain on deep breath. Denied any fever, chills, n/v, diarrhea. Objective Objective Narrative: ao x 3, in nad no thrush chest cta with decreased BS over left lung bases s1 s2 normal, 2/6 faint systolic murmur over rt 2nd ICS bs ++ nttd - Vital Signs Vital signs: Vital Signs Temp Pulse Pulse Resp BP Pulse Ox 01/12/19 16:00 37.2 C 72 18 127/58 90 01/12/19 08:00 37.4 C H 75 18 168/71 91 01/12/19 04:00 36.9 C 74 24 H 159/60 90 01/11/19 22:45 36.9 C 81 24 H 145/86 91 01/11/19 20:03 81 28 H 01/11/19 18:59 37.5 C H 81 24 H 162/66 90 Intake and Output 01/12/19 01/12/19 01/12/19 05:59 13:59 21:59 Intake Total 280 495 865 Output Total 138 428 355 Balance 142 67 510 Intake: IV 250 Oral 250 480 600 Input, Drain Irrigation Amount 30 15 15 Left Upper T-Tube 30 15 15 Output: Drainage 48 28 105 Left Upper T-Tube 48 28 105 Drainage 90 Left Upper T-Tube 90 Void Amount 400 250 Other: Meal Breakfast Percent of Meal Consumed 75% Feeding Ability Independent Urine Color Dark Yellow Dark Yellow Urine Odor Strong Normal Stool Size Moderate Stool Color Yellow Stool Consistency Soft # Voids 1 1 1 # Bowel Movements 1 Weight 79.832 kg Patient Weight 01/13/19 05:59 Weight 79.832 kg Intake & Output: Intake & Output 01/12/19 01/12/19 01/12/19 05:59 13:59 21:59 Intake Total 280 495 865 Output Total 138 428 355 Balance 142 67 510 Weight 79.832 kg Intake: IV 250 Oral 250 480 600 Input, Drain Irrigation Amount 30 15 15 Left Upper T-Tube 30 15 15 Output: Drainage 48 28 105 Left Upper T-Tube 48 28 105 Drainage 90 Left Upper T-Tube 90 Void Amount 400 250 Other: Meal Breakfast Percent of Meal Consumed 75% Feeding Ability Independent Urine Color Dark Yellow Dark Yellow Urine Odor Strong Normal Stool Size Moderate Stool Color Yellow Stool Consistency Soft # Voids 1 1 1 # Bowel Movements 1 - Lab 01/14/19 04:19 01/14/19 04:19 Most recent lab results Calcium 8.6 mg/dl (8.6-10.4) 01/12/19 04:20 Phosphorus 2.8 mg/dL (2.7-4.5) 01/12/19 04:20 Magnesium 2.1 mg/dL (1.6-2.5) 01/12/19 04:20 Microbiology 01/11/19 12:55 Pleural Fluid Gram Stain - Final 01/06/19 09:18 Blood Blood Culture - Final 01/06/19 09:41 Blood Blood Culture - Final 01/04/19 14:27 Blood Blood Culture - Final Staphylococcus aureus 01/04/19 15:36 Blood Blood Culture - Final 01/06/19 14:30 Lung - Left Gram Stain - Final 01/06/19 14:30 Lung - Left Abscess Culture - Final 01/02/19 17:00 Blood Blood Culture - Final Staphylococcus aureus 01/02/19 16:40 Urine - Clean Void Mid-Stream Urine Culture - Final 01/02/19 15:23 Blood Blood Culture - Final Staphylococcus aureus 01/04/19 03:52 Nose MRSA (PCR) - Final Medications Active Medications: Acetaminophen (Tylenol) 650 mg PO Q6HP PRN PRN Reason: PAIN/FEVER > 101 Last Admin: 01/11/19 20:18 Dose: 650 mg Documented by: Admin: 01/10/19 19:40 Dose: 650 mg Documented by: Admin: 01/10/19 03:38 Dose: 650 mg Documented by: Admin: 01/09/19 21:15 Dose: 650 mg Documented by: Admin: 01/09/19 14:36 Dose: 650 mg Documented by: Admin: 01/09/19 03:35 Dose: 650 mg Documented by: Admin: 01/08/19 16:52 Dose: 650 mg Documented by: Admin: 01/06/19 18:38 Dose: 650 mg Documented by: Admin: 01/04/19 23:56 Dose: 650 mg Documented by: LAURA Albuterol/Ipratropium (Duoneb) 3 ml NEB Q4HP PRN PRN Reason: Shortness Of Breath Or Wheezing Last Admin: 01/11/19 20:01 Dose: 3 ml Documented by: Admin: 01/11/19 08:06 Dose: 3 ml Documented by: [email or web address] Admin: 01/11/19 03:40 Dose: 3 ml Documented by: Admin: 01/09/19 19:45 Dose: 3 ml Documented by: Admin: 01/07/19 11:54 Dose: 3 ml Documented by: [email or web address] Admin: 01/06/19 05:35 Dose: 3 ml Documented by: Admin: 01/04/19 23:56 Dose: 3 ml Documented by: LAURA Alteplase, Recombinant (Cathflo) 6 mg IJ Q12H [facility] Stop: 01/13/19 09:01 Last Admin: 01/12/19 13:33 Dose: 6 mg Documented by: Admin: 01/12/19 11:17 Dose: Not Given Documented by: MUSA Non-Admin Reason: Delayed by other treatment Admin: 01/11/19 17:58 Dose: 6 mg Documented by: YOGI Amlodipine Besylate (Norvasc) 10 mg PO DAILY [facility] Last Admin: 01/12/19 09:16 Dose: 10 mg Documented by: Admin: 01/11/19 11:05 Dose: 10 mg Documented by: Admin: 01/10/19 07:23 Dose: 10 mg Documented by: Admin: 01/09/19 10:53 Dose: 10 mg Documented by: Admin: 01/08/19 08:14 Dose: 10 mg Documented by: Admin: 01/07/19 09:51 Dose: 10 mg Documented by: Admin: 01/06/19 09:57 Dose: Not Given Documented by: NICANOR Non-Admin Reason: NPO Admin: 01/05/19 09:44 Dose: 10 mg Documented by: NICANOR Bisacodyl (Dulcolax) 10 mg PO DAILYP PRN PRN Reason: Constipation Cefazolin Sodium (Ancef) 2 gm IV Q8H NNEKA; Protocol Last Admin: 01/12/19 14:01 Dose: 2 gm Documented by: Admin: 01/12/19 06:09 Dose: 2 gm Documented by: Admin: 01/11/19 22:06 Dose: 2 gm Documented by: Admin: 01/11/19 15:58 Dose: 2 gm Documented by: Admin: 01/11/19 06:07 Dose: 2 gm Documented by: Admin: 01/10/19 21:39 Dose: 2 gm Documented by: Admin: 01/10/19 14:12 Dose: 2 gm Documented by: Admin: 01/10/19 05:29 Dose: 2 gm Documented by: Admin: 01/09/19 21:13 Dose: 2 gm Documented by: Admin: 01/09/19 15:51 Dose: 2 gm Documented by: Admin: 01/09/19 05:20 Dose: 2 gm Documented by: Admin: 01/08/19 21:37 Dose: 2 gm Documented by: Admin: 01/08/19 13:52 Dose: 2 gm Documented by: Admin: 01/08/19 05:41 Dose: 2 gm Documented by: Admin: 01/07/19 21:38 Dose: 2 gm Documented by: Admin: 01/07/19 14:03 Dose: 2 gm Documented by: Admin: 01/07/19 05:30 Dose: 2 gm Documented by: Admin: 01/06/19 21:14 Dose: 2 gm Documented by: Admin: 01/06/19 15:38 Dose: 2 gm Documented by: Admin: 01/06/19 05:21 Dose: 2 gm Documented by: Admin: 01/05/19 21:16 Dose: 2 gm Documented by: Admin: 01/05/19 17:06 Dose: 2 gm Documented by: Admin: 01/05/19 05:31 Dose: 2 gm Documented by: Admin: 01/04/19 21:02 Dose: 2 gm Documented by: LAURA Clonidine HCl (Catapres) 0.1 mg PO QIDP PRN PRN Reason: sbp>150 Last Admin: 01/12/19 04:05 Dose: 0.1 mg Documented by: GAURAV Diphenhydramine HCl (Benadryl) 25 mg IV Q4HP PRN PRN Reason: Allergic Symptoms Last Admin: 01/10/19 21:38 Dose: 25 mg Documented by: GAURAV Enoxaparin Sodium (Lovenox) 40 mg SQ DAILY [facility] Last Admin: 01/12/19 09:15 Dose: 40 mg Documented by: Admin: 01/11/19 11:06 Dose: 40 mg Documented by: Admin: 01/10/19 07:21 Dose: 40 mg Documented by: Admin: 01/09/19 10:53 Dose: 40 mg Documented by: Admin: 01/08/19 08:15 Dose: 40 mg Documented by: Admin: 01/07/19 09:52 Dose: 40 mg Documented by: Admin: 01/06/19 10:10 Dose: 40 mg Documented by: Admin: 01/05/19 09:44 Dose: 40 mg Documented by: NICANOR Furosemide (Lasix) 20 mg IV DAILY [facility] Last Admin: 01/12/19 09:16 Dose: 20 mg Documented by: Admin: 01/11/19 11:05 Dose: 20 mg Documented by: Admin: 01/10/19 07:23 Dose: 20 mg Documented by: Admin: 01/09/19 10:53 Dose: 20 mg Documented by: Admin: 01/08/19 08:18 Dose: 20 mg Documented by: Admin: 01/07/19 09:51 Dose: 20 mg Documented by: Admin: 01/06/19 10:10 Dose: 20 mg Documented by: NICANOR Heparin Sodium (Porcine) (Heparin Flush) 2 ml IV Q12 [facility] Last Admin: 01/12/19 09:18 Dose: 2 ml Documented by: Admin: 01/11/19 22:05 Dose: 2 ml Documented by: Admin: 01/11/19 11:07 Dose: 2 ml Documented by: Admin: 01/10/19 21:40 Dose: 2 ml Documented by: Admin: 01/10/19 11:52 Dose: 2 ml Documented by: Admin: 01/09/19 21:13 Dose: 2 ml Documented by: Admin: 01/09/19 10:52 Dose: 2 ml Documented by: Admin: 01/08/19 21:25 Dose: 2 ml Documented by: LUISA Hydralazine HCl (Apresoline) 20 mg IV Q2HP PRN PRN Reason: Hypertension Last Admin: 01/11/19 19:32 Dose: 20 mg Documented by: GAURAV Magnesium Sulfate (Magnesium Sulfate) 2 gm in 50 mls @ 50 mls/hr IV UD PRN PRN Reason: Mag < or = 1.7 Ketorolac Tromethamine (Ketorolac Tromethamine) 0 ml OP BID [facility]KA Last Admin: 01/12/19 09:18 Dose: 1 ml Documented by: Admin: 01/11/19 22:34 Dose: Not Given Documented by: GAURAV Non-Admin Reason: Patient Request Admin: 01/11/19 11:13 Dose: 3 ml Documented by: YOGI Comments: 1 drop per eye Admin: 01/10/19 21:53 Dose: Not Given Documented by: GAURAV Non-Admin Reason: Patient Request Admin: 01/10/19 11:53 Dose: 3 ml Documented by: Admin: 01/09/19 21:14 Dose: Not Given Documented by: LUSIA Non-Rina Reason: Patient Refused Admin: 01/09/19 11:24 Dose: 1 ml Documented by: Admin: 01/08/19 21:26 Dose: Not Given Documented by: LUISA Non-Rina Reason: Patient Refused Admin: 01/08/19 08:19 Dose: Not Given Documented by: KELLY Non-Rina Reason: Patient Refused Admin: 01/07/19 20:11 Dose: Not Given Documented by: SERENE Non-Admin Reason: Patient Refused Admin: 01/07/19 09:53 Dose: 3 ml Documented by: Admin: 01/06/19 21:16 Dose: 1 ml Documented by: Admin: 01/06/19 10:10 Dose: 3 ml Documented by: Admin: 01/05/19 21:19 Dose: Not Given Documented by: NICK Non-Admin Reason: Patient Refused Admin: 01/05/19 10:14 Dose: 1 ml Documented by: NICANOR Comments: Would not scan Admin: 01/04/19 21:04 Dose: 1 ml Documented by: LAURA Comments: barcode unable to scan for all eye medications Latanoprost (Xalatan Ophth Drops) 1 gtt OU HS [facility] Last Admin: 01/11/19 22:06 Dose: 1 gtt Documented by: Admin: 01/10/19 21:42 Dose: 1 gtt Documented by: Admin: 01/09/19 21:14 Dose: 1 gtt Documented by: Admin: 01/08/19 21:27 Dose: 1 gtt Documented by: Admin: 01/07/19 20:12 Dose: 1 gtt Documented by: Admin: 01/06/19 21:17 Dose: 1 gtt Documented by: Admin: 01/05/19 21:19 Dose: 1 gtt Documented by: Admin: 01/04/19 21:04 Dose: 1 gtt Documented by: LAURA Lidocaine (Lidoderm) 1 patch TOPICAL DAILY@1000 [facility] Last Admin: 01/12/19 10:08 Dose: 1 patch Documented by: Admin: 01/11/19 09:46 Dose: 1 patch Documented by: YOGI Lisinopril (Zestril) 20 mg PO DAILY [facility] Last Admin: 01/12/19 09:16 Dose: 20 mg Documented by: Admin: 01/11/19 11:06 Dose: 20 mg Documented by: YOGI Magnesium Hydroxide (Milk Of Magnesia) 30 ml PO DAILYP PRN PRN Reason: Constipation Morphine Sulfate (Morphine) 1 - 3 mg IV Q3HP PRN PRN Reason: PAIN LEVEL > 6 Last Admin: 01/12/19 12:56 Dose: 2 mg Documented by: MUSA Mupirocin (Bactroban Oint 2%) 1 dose NARES BID [facility] Last Admin: 01/12/19 09:17 Dose: 1 dose Documented by: MUSA Comments: wont scan Admin: 01/11/19 22:06 Dose: 1 dose Documented by: Admin: 01/11/19 12:36 Dose: Not Given Documented by: YOGI Non-Admin Reason: Patient Refused Admin: 01/10/19 21:42 Dose: 1 dose Documented by: Admin: 01/10/19 11:53 Dose: 1 dose Documented by: Admin: 01/09/19 21:23 Dose: 1 dose Documented by: Admin: 01/09/19 11:24 Dose: 1 dose Documented by: Admin: 01/08/19 21:25 Dose: 1 dose Documented by: Admin: 01/08/19 08:16 Dose: 1 dose Documented by: Admin: 01/07/19 20:11 Dose: 1 dose Documented by: Admin: 01/07/19 09:52 Dose: 1 dose Documented by: Admin: 01/06/19 21:14 Dose: 1 dose Documented by: Admin: 01/06/19 10:08 Dose: 1 dose Documented by: Admin: 01/05/19 21:18 Dose: 1 dose Documented by: Admin: 01/05/19 09:45 Dose: 1 dose Documented by: Admin: 01/04/19 21:06 Dose: 1 dose Documented by: NSTOVER Comments: barcode not scanning - saying discontinued Ondansetron HCl (Zofran) 4 mg IV Q4HP PRN PRN Reason: Nausea And Vomiting Pantoprazole Sodium (Protonix) 40 mg PO QAMAC [facility] Admin: 01/12/19 07:36 Dose: 40 mg Documented by: Admin: 01/11/19 07:40 Dose: 40 mg Documented by: Admin: 01/10/19 07:22 Dose: 40 mg Documented by: Admin: 01/09/19 08:35 Dose: 40 mg Documented by: Admin: 01/08/19 08:16 Dose: 40 mg Documented by: Admin: 01/07/19 07:24 Dose: 40 mg Documented by: Admin: 01/06/19 09:57 Dose: Not Given Documented by: NICANOR Non-Admin Reason: NPO Admin: 01/05/19 09:45 Dose: 40 mg Documented by: NICANOR Potassium Chloride (Potassium Chloride) 15 meq PT BIDCC [facility] Last Admin: 01/12/19 17:43 Dose: Not Given Documented by: MUSA Non-Admin Reason: Patient Refused Admin: 01/12/19 07:36 Dose: Not Given Documented by: MUSA Non-Admin Reason: Patient Refused Admin: 01/11/19 17:58 Dose: Not Given Documented by: YOGI Non-Admin Reason: Patient Refused Admin: 01/11/19 09:44 Dose: Not Given Documented by: YOGI Non-Admin Reason: pt refused Admin: 01/10/19 16:31 Dose: 15 meq Documented by: Admin: 01/10/19 07:21 Dose: 15 meq Documented by: Admin: 01/09/19 17:35 Dose: 15 meq Documented by: Admin: 01/09/19 08:44 Dose: 15 meq Documented by: Admin: 01/08/19 16:52 Dose: 15 meq Documented by: Admin: 01/08/19 08:16 Dose: 15 meq Documented by: Admin: 01/07/19 17:53 Dose: 15 meq Documented by: HOPE Sodium Chloride (Saline Flush) 10 ml IV Q8 [facility] Last Admin: 01/12/19 14:02 Dose: 10 ml Documented by: Admin: 01/12/19 06:09 Dose: 10 ml Documented by: Admin: 01/11/19 22:05 Dose: 10 ml Documented by: Admin: 01/11/19 15:58 Dose: 10 ml Documented by: Admin: 01/11/19 06:07 Dose: 10 ml Documented by: Admin: 01/10/19 21:40 Dose: 10 ml Documented by: Admin: 01/10/19 14:14 Dose: 10 ml Documented by: Admin: 01/10/19 11:54 Dose: 10 ml Documented by: Admin: 01/10/19 07:21 Dose: 10 ml Documented by: Admin: 01/10/19 05:28 Dose: 10 ml Documented by: Admin: 01/09/19 21:18 Dose: 10 ml Documented by: Admin: 01/09/19 15:51 Dose: 10 ml Documented by: Admin: 01/09/19 05:20 Dose: 10 ml Documented by: Admin: 01/08/19 21:26 Dose: 10 ml Documented by: Admin: 01/08/19 13:52 Dose: 10 ml Documented by: Admin: 01/08/19 05:41 Dose: 10 ml Documented by: Admin: 01/07/19 21:39 Dose: 10 ml Documented by: Admin: 01/07/19 14:04 Dose: 10 ml Documented by: Admin: 01/07/19 05:30 Dose: 10 ml Documented by: Admin: 01/06/19 21:18 Dose: 10 ml Documented by: Admin: 01/06/19 15:38 Dose: 10 ml Documented by: Admin: 01/06/19 05:22 Dose: 10 ml Documented by: Admin: 01/05/19 21:20 Dose: 10 ml Documented by: Admin: 01/05/19 17:06 Dose: 10 ml Documented by: Admin: 01/05/19 05:32 Dose: 10 ml Documented by: Admin: 01/04/19 21:02 Dose: 10 ml Documented by: LAURA Sodium Chloride (Saline Flush) 10 ml IV UD PRN PRN Reason: FLUSH Sodium Chloride (Saline Flush) 10 ml IV Q12 [facility] Last Admin: 01/12/19 09:19 Dose: 10 ml Documented by: Admin: 01/11/19 22:06 Dose: 10 ml Documented by: Admin: 01/11/19 11:16 Dose: 10 ml Documented by: Admin: 01/10/19 21:43 Dose: 10 ml Documented by: Admin: 01/10/19 14:13 Dose: 10 ml Documented by: Admin: 01/10/19 11:55 Dose: 10 ml Documented by: Admin: 01/09/19 21:23 Dose: Not Given Documented by: LUISA Non-Admin Reason: Duplicate Admin: 01/09/19 10:54 Dose: 10 ml Documented by: Admin: 01/08/19 21:28 Dose: Not Given Documented by: LUISA Non-Admin Reason: Duplicate Sodium Chloride (Sodium Chloride) 1 gm PO TID [facility]NEKA Stop: 01/12/19 21:01 Last Admin: 01/12/19 15:14 Dose: 1 gm Documented by: Admin: 01/12/19 09:16 Dose: 1 gm Documented by: MUSA Timolol Maleate (Timoptic 0.5% Ophth Drops) 1 gtt OU BID [facility] Last Admin: 01/12/19 09:19 Dose: 1 gtt Documented by: Admin: 01/11/19 22:07 Dose: 1 gtt Documented by: Admin: 01/11/19 11:15 Dose: 1 gtt Documented by: Admin: 01/10/19 21:41 Dose: 1 gtt Documented by: Admin: 01/10/19 11:54 Dose: 1 gtt Documented by: Admin: 01/09/19 21:14 Dose: 1 gtt Documented by: Admin: 01/09/19 11:23 Dose: 1 gtt Documented by: Admin: 01/08/19 21:28 Dose: 1 gtt Documented by: Admin: 01/08/19 08:19 Dose: 1 gtt Documented by: Admin: 01/07/19 20:13 Dose: 1 gtt Documented by: Admin: 01/07/19 09:54 Dose: 1 gtt Documented by: Admin: 01/06/19 21:17 Dose: 1 gtt Documented by: Admin: 01/06/19 10:11 Dose: 1 gtt Documented by: NICANOR Comments: will not scan Admin: 01/05/19 21:20 Dose: 1 gtt Documented by: Admin: 01/05/19 10:15 Dose: 1 gtt Documented by: Admin: 01/04/19 21:04 Dose: 1 gtt Documented by: LAURA Tramadol HCl (Ultram) 50 mg PO Q4HP PRN PRN Reason: Pain Last Admin: 01/12/19 10:20 Dose: 50 mg Documented by: Admin: 01/11/19 22:07 Dose: 50 mg Documented by: Admin: 01/11/19 17:35 Dose: 50 mg Documented by: Admin: 01/11/19 03:10 Dose: 50 mg Documented by: Admin: 01/10/19 16:31 Dose: 50 mg Documented by: Admin: 01/10/19 07:22 Dose: 50 mg Documented by: Admin: 01/10/19 03:37 Dose: 50 mg Documented by: Admin: 01/09/19 23:09 Dose: 50 mg Documented by: Admin: 01/09/19 19:06 Dose: 50 mg Documented by: Admin: 01/09/19 13:44 Dose: 50 mg Documented by: Admin: 01/09/19 08:36 Dose: 50 mg Documented by: Admin: 01/09/19 02:54 Dose: 50 mg Documented by: Admin: 01/08/19 19:55 Dose: 50 mg Documented by: Admin: 01/08/19 13:52 Dose: 50 mg Documented by: Admin: 01/08/19 04:34 Dose: 50 mg Documented by: Admin: 01/07/19 21:41 Dose: 50 mg Documented by: Admin: 01/07/19 17:53 Dose: 50 mg Documented by: Admin: 01/07/19 14:03 Dose: 50 mg Documented by: Admin: 01/06/19 15:52 Dose: 50 mg Documented by: Admin: 01/05/19 17:06 Dose: 50 mg Documented by: Admin: 01/05/19 00:08 Dose: 50 mg Documented by: LAURA Assessment and Plan - Narrative A/P Narrative: A: 1. MSSA bacteremia: 2/2 sets +ve on 01/02, 1/2 sets on 01/04 - blood Cx neg since 01/06 - likely source skin breakdown due to eczematous skin lesions over the legs. s/p decolonization for 5 days - TTE report neg for any vegetations, mod MR 2. Left upper chest wall extrapleural abscess: sec to seeding from MSSA bacteremia. growing MSSA on cultures - initial size of (3 x 7 cm) on 01/06 -----------------> increased to size of 7 x [address] chest today - s/p IR guided drainage 01/06, with catheter malfunction, and because of increase in size; was upgraded to a larger bore catheter today. The abscess is 1/3 of its size after drainage. Of note pt refused CTS consultation for possible surgery for abscess drainage - s/p IR guided change and upsizing of chest wall drainage catheter by IR on 01/11. post proceduer CXR suggesting considerably decrease in size (now 5 cm span). 3. Left loculated pleural effusion, moderate size - s/p IR guided drainage of left loculated pleural effusion today with lab studies s/o being exudative: possible due to lot of blood in it Recommendations: - Continue IV Cefazolin 2 gm q8 hrs through PICC line, day 7 Tentative stop date: Feb 02 2019 - Follow up labs: CBC, BMP weekly ESR and CRP every other week - aggressive saline flushes per IR recs. TPA instillation per IR recs - will tentatively plan for a 4 week course with ID clinic f/u - GABRIELA scheduled as OP on 01/18 at [facility] - repeat CT chest on to assess cavity size. If chest wall extrapleural abscess stays at same size or increased in size, pt will need surgical debridement. Although adamant, pt is open to do so if CT on suggests lack of improvement or worsening - will share ID clinic f/u details near discharge will follow Feliberto Vuong MD Infectious diseases
[2019-01-12] MEDS: LATANOPROST OPHTH DROPS 2.5ML BOTTLE OU SCH (21:02)
[2019-01-13] MEDS: ACETAMINOPHEN 325 MG TABLET PO PRN ×3 (01:27→22:22)
[2019-01-13] MEDS: ceFAZolin 1 GM VIAL IV SCH ×3 (05:23→21:25)
[2019-01-13] MEDS: 0.9 % SODIUM CHLORIDE 10 ML SYRINGE IV SCH ×5 (05:23→21:25)
[2019-01-13 05:57] LABS: Basophils # (Auto) 0 K/mcL (0.0-0.3); Basophils % (Auto) 0.2 % (0.0-2.0); Eosinophils # (Auto) 0.1 K/mcL (0.0-0.7); Eosinophils % (Auto) 0.8 % (0.0-7.0); Granulocytes % (Auto) 77.3 % (38.0-78.0); Hemoglobin 9.4 g/dL (12.0-15.0); Lymphocytes # (Auto) 1.4 K/mcL (1.5-4.8); Lymphocytes % (Auto) 10.1 % (15.5-49.0); Mean Cell Volume 87.3 fL (80.0-100.0); Mean Corpuscular HGB Conc 32.5 g/dL (31.0-36.0); Monocytes # (Auto) 1.6 K/mcL (0.1-0.9); Monocytes % (Auto) 11.6 % (1.0-12.0); Platelet Count 341 K/mcL (140-440); RBC 3.32 M/mcL (4.00-5.20); Red Cell Distribution Width 14.1 % (11.5-14.5); WBC 13.6 K/mcL (4.5-11.0)
[2019-01-13 07:18] LABS: Blood Urea Nitrogen 12 mg/dl (8-23); Calcium 8.2 mg/dl (8.6-10.4); Carbon Dioxide 23 mmol/L (22-30); Chloride 97 mmol/L (96-108); Glomerular Filtration Rate 72; Glucose 106 mg/dL (70-105)
--- NOTE | 2019-01-13 07:51 | Internal Med Progress Note ---
Medical - PN: Subj Patient information: Note initiated : 01/13/19 at 7:47 am Service Date, if different from initiated Date: [] Patient: Fiorella Leon a 78 y/o F admitted on 01/02/19 for Shoulder pain, Change in LOC. Chief Complaint: [] Interval history: Ms. Leon is a 78 year old F who presents to the emergency department brought in by her with concerns of confusion. Apparently she had not been doing well for the last few days, however was just seen here yesterday with main complaint of left shoulder pain and was diagnosed with muscle spasm. She was prescribed Flexeril, it is unclear if she is taking many of those tablets. She reports back to the ED with her quite confused. Apparently she did not follow much conversation and could not give much history upon arrival though did improve after fluids. Evaluation in the emergency department shows evidence of urinary tract infection with sepsis, white count of 20 and encephalopathy. Location: Systemic; timing: Onset 1 to 2 days ago; severity: Moderate; associated symptoms: As in review of systems. Patient felt feverish last evening, she felt chilled but did not have shaking chills. She occasionally has a headache, but none currently. No neck pain or stiffness. She had some mild nausea this morning but no emesis. She is had no abdominal pain. She has had no diarrhea. She has had some dysuria. In the emergency department, the patient is also noted to be extremely hypertensive with systolic blood pressures in the 200s and diastolics in the 110's. Patient was trying to describe that she had had a hypertensive reaction to a treatment for her glaucoma but is still little confused and cannot really provide details. According to her , her blood pressure may have been high for a while but she has never been treated for hypertension. She is now being admitted for treatment of sepsis from urinary source. 01/03-seen at bedside with her and nursing. She is less confused this afternoon and is starting to feel better. Blood cultures are positive for gram- positive cocci in both sets. Urine culture is without growth. Vancomycin added to regimen. Patient really had not been having fevers chills. She has been feeling poorly for a few days prior to presenting to the hospital however. She does have some wounds in the lower legs where she has scratched at areas of eczema. 2continues to improve. Mentation seems back to normal. Did have episode of chest tightness this morning, she is noted similar episodes in the past. Occurred at rest. She had had systolic blood pressure in the 200 range, had received hydralazine the time of onset with blood pressure down to the 140s. Cultures have identified pansensitive Staphylococcus aureus. Discussed with infectious disease, echo is ordered, will also obtain CT of the chest as well as the left shoulder where she has been having some pain. eveloped some dyspnea just about midnight. Also had low-grade fever. Received acetaminophen and breathing treatment. Also received 20 mg of Lasix with significant improvement in dyspnea. Feel little more dyspneic this morning as well. Review of intake/output shows she is about 6 L positive. Discussed with Dr. Vuong for infectious disease. CT scan images reviewed with him. Form al report now shows probable abscess in the left upper lung region extrapleural space. Still with left shoulder pain, query if it is related to the abscess. 01/06-patient feels a lot better since admission. at bedside. Discussed blood cultures/imaging findings and treatment plan. Abscess drainage scheduled for 2 PM. Surveillance cultures from 01/04+ for gram-positive cocci. MSSA on initial cultures. On IV cefazolin as per ID. ID recommends transesophageal echocardiogram as outpatient. Continuing antibiotic coverage. White count down from 20,200-12.6. Potassium improved from 2.8-3.3. UA pyuria. Remains afebrile. 01/07-pansensitive staph aureus currently on cefazolin. ID recommends at least 4 weeks antibiotics. Potassium 3.1 on replacement. White count 12.3. Will require outpatient transesophageal echocardiogram. Surveillance blood cultures negative so far. 01/08-patient doing well. No overnight events. Drain output over 30 cc left anterior chest. Pansensitive staph aureus. Surveillance cultures from 01/06- so far. Continuing IV antibiotics as per id. PICC line placement today. No overnight fever chills. White count 11.4. Potassium 3.6, phosphorus up to 2.5 01/09 Feeling better. No overnight events. No new complaints. Cough much improved. No real noticeable shortness of breath. Occasional headache 01/10 Quite a bit of drainage after TPA via catheter overnight. No overnight events. Does have a little bit of left upper chest discomfort where the catheter is in place. 01/11 She has been having crampy left upper chest pain in the evenings since the TPA was delivered, and causing pleuritic pain. There was no other complaints. 01/12 Slept well. Feeling better. Patient cough. Does still have some shortness of breath because she feels pain when she takes a deep breath. Otherwise no complaints. 01/13 Feeling better today. Able to cough out more phlegm. Left upper chest discomfort but improved. Slept good last night. Breathing better, denying shortness of breath at rest Review of Systems: denies fever/chills/nausea/vomiting/abdominal pain/diarrhea. Otherwise see above. - Constitutional Vitals: Vital Signs Temp Pulse Resp BP Pulse Ox 97.8 F 69 18 182/70 92 01/13/19 04:00 01/13/19 04:00 01/13/19 04:00 01/13/19 04:00 01/13/19 04:00 Period Temp Pulse Resp BP Sys/Mccullough Pulse Ox Last 24 Hr 97.8 F-99.4 F 69-83 18-20 127-196/58-71 90-92 Intake and Output 01/12/19 01/13/19 01/13/19 21:59 05:59 13:59 Intake Total 1075 710 Output Total 565 732 200 Balance 510 -22 -200 Weight 79.379 kg Intake & Output: Intake & Output 01/12/19 01/13/19 01/13/19 21:59 05:59 13:59 Intake Total 1075 710 Output Total 565 732 200 Balance 510 -22 -200 Weight 79.379 kg Intake: IV 250 Oral 800 700 Input, Drain Irrigation Amount 25 10 Left Upper T-Tube 25 10 Output: Drainage 115 12 Left Upper T-Tube 115 12 Drainage 120 Left Upper T-Tube 120 Void Amount 450 600 200 Other: Meal Dinner Percent of Meal Consumed 50% Urine Appearance Clear Urine Color Dark Yellow Urine Odor Normal # Voids 1 Exam: General: Alert, Awake, No acute Distress Eyes/N/T: EOMI, Head/Neck: neck supple, CV: RRR, No murmurs, Pulm: Diminished left upper lobe, mild b/l wheezing. chest tube replaced with 12f Abd: soft, nontender, +BS x4 Ext: no clubbing/cyanosis/edema Neuro: Alert, no focal deficits, moves all extremities, Skin: warm/dry Medical - PN: Obj Da - Labs CBC & Chem 7: 01/13/19 04:45 01/13/19 04:45 Labs: Abnormal Lab Results 01/13/19 01/13/19 01/12/19 04:45 04:45 04:20 WBC 13.6 H RBC 3.32 L Hgb 9.4 L Hct 29.0 L Gran % Lymph % (Auto) 10.1 L Gran # 10.5 H Lymph # (Auto) 1.4 L Kerr # (Auto) 1.6 H Lymphocytes % Metamyelocytes % WBC Morphology Toxic Granulation RBC Morphology Polychromasia Sodium 132 L 130 L Chloride 92 L Glucose 106 H 106 H Calcium 8.2 L Albumin 2.7 L Globulin 4.4 H Albumin/Globulin Ratio 0.6 L 01/12/19 01/11/19 01/11/19 04:20 06:00 06:00 WBC 14.1 H RBC 3.48 L Hgb 9.9 L Hct 30.3 L Gran % Lymph % (Auto) Gran # Lymph # (Auto) Kerr # (Auto) Lymphocytes % 8 L 9 L Metamyelocytes % 1 H WBC Morphology Abnorm A Abnorm A Toxic Granulation 1+ A 1+ A RBC Morphology Abnorm A Polychromasia Few A Sodium 132 L Chloride 95 L Glucose 128 H Calcium 8.5 L Albumin Globulin Albumin/Globulin Ratio 01/11/19 06:00 WBC 13.3 H RBC 3.59 L Hgb 10.3 L Hct 31.2 L Gran % 83.2 H Lymph % (Auto) 6.6 L Gran # 11.0 H Lymph # (Auto) 0.9 L Kerr # (Auto) 1.3 H Lymphocytes % Metamyelocytes % WBC Morphology Toxic Granulation RBC Morphology Polychromasia Sodium Chloride Glucose Calcium Albumin Globulin Albumin/Globulin Ratio Meds: Medications Acetaminophen (Tylenol) 650 mg PO Q6HP PRN PRN Reason: PAIN/FEVER > 101 Last Admin: 01/13/19 01:27 Dose: 650 mg Documented by: Albuterol/Ipratropium (Duoneb) 3 ml NEB Q4HP PRN PRN Reason: Shortness Of Breath Or Wheezing Last Admin: 01/11/19 20:01 Dose: 3 ml Documented by: Alteplase, Recombinant (Cathflo) 6 mg IJ Q12H [facility] Stop: 01/13/19 09:01 Last Admin: 01/12/19 20:55 Dose: 6 mg Documented by: Amlodipine Besylate (Norvasc) 10 mg PO DAILY [facility] Last Admin: 01/12/19 09:16 Dose: 10 mg Documented by: Bisacodyl (Dulcolax) 10 mg PO DAILYP PRN PRN Reason: Constipation Cefazolin Sodium (Ancef) 2 gm IV Q8H [facility]; Protocol Last Admin: 01/13/19 05:23 Dose: 2 gm Documented by: Clonidine HCl (Catapres) 0.1 mg PO QIDP PRN PRN Reason: sbp>150 Last Admin: 01/12/19 20:58 Dose: 0.1 mg Documented by: Diphenhydramine HCl (Benadryl) 25 mg IV Q4HP PRN PRN Reason: Allergic Symptoms Last Admin: 01/10/19 21:38 Dose: 25 mg Documented by: Enoxaparin Sodium (Lovenox) 40 mg SQ DAILY [facility] Last Admin: 01/12/19 09:15 Dose: 40 mg Documented by: Furosemide (Lasix) 20 mg IV DAILY [facility] Last Admin: 01/12/19 09:16 Dose: 20 mg Documented by: Heparin Sodium (Porcine) (Heparin Flush) 2 ml IV Q12 [facility] Last Admin: 01/12/19 20:59 Dose: 2 ml Documented by: Hydralazine HCl (Apresoline) 20 mg IV Q2HP PRN PRN Reason: Hypertension Last Admin: 01/11/19 19:32 Dose: 20 mg Documented by: Magnesium Sulfate (Magnesium Sulfate) 2 gm in 50 mls @ 50 mls/hr IV UD PRN PRN Reason: Mag < or = 1.7 Ketorolac Tromethamine (Ketorolac Tromethamine) 0 ml OP BID [facility] Last Admin: 01/12/19 21:00 Dose: Not Given Documented by: Latanoprost (Xalatan Ophth Drops) 1 gtt OU HS [facility] Last Admin: 01/12/19 21:02 Dose: 1 gtt Documented by: Lidocaine (Lidoderm) 1 patch TOPICAL DAILY@1000 NNEKA Last Admin: 01/12/19 10:08 Dose: 1 patch Documented by: Lisinopril (Zestril) 20 mg PO DAILY [facility] Last Admin: 01/12/19 09:16 Dose: 20 mg Documented by: Magnesium Hydroxide (Milk Of Magnesia) 30 ml PO DAILYP PRN PRN Reason: Constipation Morphine Sulfate (Morphine) 1 - 3 mg IV Q3HP PRN PRN Reason: PAIN LEVEL > 6 Last Admin: 01/12/19 12:56 Dose: 2 mg Documented by: Mupirocin (Bactroban Oint 2%) 1 dose NARES BID [facility] Last Admin: 01/12/19 20:59 Dose: 1 dose Documented by: Ondansetron HCl (Zofran) 4 mg IV Q4HP PRN PRN Reason: Nausea And Vomiting Pantoprazole Sodium (Protonix) 40 mg PO QAMAC [facility] Last Admin: 01/12/19 07:36 Dose: 40 mg Documented by: Potassium Chloride (Potassium Chloride) 15 meq PT BIDCC [facility] Last Admin: 01/12/19 17:43 Dose: Not Given Documented by: Sodium Chloride (Saline Flush) 10 ml IV Q8 [facility] Last Admin: 01/13/19 05:23 Dose: 10 ml Documented by: Sodium Chloride (Saline Flush) 10 ml IV UD PRN PRN Reason: FLUSH Sodium Chloride (Saline Flush) 10 ml IV Q12 [facility] Last Admin: 01/12/19 21:04 Dose: 10 ml Documented by: Timolol Maleate (Timoptic 0.5% Ophth Drops) 1 gtt OU BID [facility] Last Admin: 01/12/19 21:02 Dose: 1 gtt Documented by: Tramadol HCl (Ultram) 50 mg PO Q4HP PRN PRN Reason: Pain Last Admin: 01/12/19 20:56 Dose: 50 mg Documented by: Medical - PN: A/P - Time Spent With Patient Total time spent is greater than 50% in coordination of care (as documented) at patient's floor/unit and/or counseling patient: - Narrative A/P Narrative: A: *Sepsis: /2 MSSA bacteremia -Leukocytosis improved, but bumping up again (pt feels better today, at procedure yesterday) *JUANA abscess: s/p CT-guided drain placement with replacement tube 12f catheter (01/11) and irrigation -WBC improving again *MSSA bacteremia: -surveillance cultures since 01/04 negative -no vegetations noted on TTE *Hypophos/Ovi: improved *Acute cystitis. 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 Pt not aware of history Plan: -Continue IV antibiotics as per ID, Cefazolin 2 gm q8, Tentative stop date: Feb 02 2019; labs: CBC, BMP weekly & ESR and CRP every other week -PICC line placed -Continue chest drain care, Rads following, tpa -f/u CT chest on -GABRIELA scheduled at [facility] on at 10am as outpatient -Continue amlodipine 10mg/JORDAN inhibitor(increased to 20mg)/as needed hydralazine, further adjustment per PCP -will start ASA when bloody drainage improved from chest catheter -Discharge planning per case management for long-term antibiotic -pt/ot -ppx: heparin DNR
[2019-01-13] MEDS: POTASSIUM CHLORIDE 20 MEQ/15 ML ML PT SCH ×2 (08:20→15:36)
[2019-01-13] MEDS: traMADol 50 MG TABLET PO PRN ×4 (08:25→23:02)
[2019-01-13] MEDS: amLODIPine 5 MG TABLET PO SCH (08:26)
[2019-01-13] MEDS: PANTOPRAZOLE 40 MG TABLET PO SCH (08:26)
[2019-01-13] MEDS: LISINOPRIL 20 MG TABLET PO SCH (08:26)
[2019-01-13] MEDS: FUROSEMIDE 20 MG/2 ML VIAL IV SCH (08:26)
[2019-01-13] MEDS: MUPIROCIN OINT 2% 22GM NARES SCH ×2 (08:27→20:47)
[2019-01-13] MEDS: ENOXAPARIN 40 MG/0.4 ML SYRINGE SQ SCH (08:28)
[2019-01-13] MEDS: KETOROLAC TROMETHAMINE 3 ML DROPS OP SCH ×2 (08:29→20:49)
[2019-01-13] MEDS: TIMOLOL 0.5% OPHTH DROPS BOTTLE 5ML OU SCH ×2 (08:30→20:49)
[2019-01-13] MEDS: ALTEPLASE 2 MG VIAL IJ SCH (10:59)
[2019-01-13] MEDS: IPRATROPIUM/ALBUTEROL 3 ML AMPUL.NEB NEB SCH ×3 (11:03→19:38)
[2019-01-13] MEDS: LIDOCAINE PATCH TOPICAL SCH (11:05)
[2019-01-13] MEDS: LATANOPROST OPHTH DROPS 2.5ML BOTTLE OU SCH (20:49)
[2019-01-13] MEDS ORDERED: ALTEPLASE 2 MG VIAL IJ SCH (21:00)
[2019-01-14] MEDS: 0.9 % SODIUM CHLORIDE 10 ML SYRINGE IV SCH ×6 (05:24→22:35)
[2019-01-14] MEDS: ceFAZolin 1 GM VIAL IV SCH ×3 (05:24→22:34)
[2019-01-14 06:49] LABS: Basophils # (Auto) 0.1 K/mcL (0.0-0.3); Basophils % (Auto) 0.4 % (0.0-2.0); Eosinophils # (Auto) 0.3 K/mcL (0.0-0.7); Granulocytes % (Auto) 76.5 % (38.0-78.0); Hemoglobin 9.5 g/dL (12.0-15.0); Lymphocytes # (Auto) 1.3 K/mcL (1.5-4.8); Lymphocytes % (Auto) 9.4 % (15.5-49.0); Mean Cell Volume 86.8 fL (80.0-100.0); Mean Corpuscular HGB Conc 32.8 g/dL (31.0-36.0); Mean Platelet Volume 8.9 fL (7.4-10.4); Monocytes # (Auto) 1.6 K/mcL (0.1-0.9); Monocytes % (Auto) 11.7 % (1.0-12.0); Platelet Count 430 K/mcL (140-440); RBC 3.34 M/mcL (4.00-5.20); Red Cell Distribution Width 13.8 % (11.5-14.5); WBC 13.9 K/mcL (4.5-11.0)
[2019-01-14 07:33] LABS: Blood Urea Nitrogen 12 mg/dl (8-23); Calcium 8.2 mg/dl (8.6-10.4); Carbon Dioxide 27 mmol/L (22-30); Chloride 94 mmol/L (96-108); Glomerular Filtration Rate 84; Glucose 108 mg/dL (70-105)
--- NOTE | 2019-01-14 07:58 | Internal Med Progress Note ---
Medical - PN: Subj Patient information: Note initiated : 01/14/19 at 7:56 am Service Date, if different from initiated Date: [] Patient: Fiorella Leon a 78 y/o F admitted on 01/02/19 for Shoulder pain, Change in LOC. Chief Complaint: [] Interval history: Ms. Leon is a 78 year old F who presents to the emergency department brought in by her with concerns of confusion. Apparently she had not been doing well for the last few days, however was just seen here yesterday with main complaint of left shoulder pain and was diagnosed with muscle spasm. She was prescribed Flexeril, it is unclear if she is taking many of those tablets. She reports back to the ED with her quite confused. Apparently she did not follow much conversation and could not give much history upon arrival though did improve after fluids. Evaluation in the emergency department shows evidence of urinary tract infection with sepsis, white count of 20 and encephalopathy. Location: Systemic; timing: Onset 1 to 2 days ago; severity: Moderate; associated symptoms: As in review of systems. Patient felt feverish last evening, she felt chilled but did not have shaking chills. She occasionally has a headache, but none currently. No neck pain or stiffness. She had some mild nausea this morning but no emesis. She is had no abdominal pain. She has had no diarrhea. She has had some dysuria. In the emergency department, the patient is also noted to be extremely hypertensive with systolic blood pressures in the 200s and diastolics in the 110's. Patient was trying to describe that she had had a hypertensive reaction to a treatment for her glaucoma but is still little confused and cannot really provide details. According to her , her blood pressure may have been high for a while but she has never been treated for hypertension. She is now being admitted for treatment of sepsis from urinary source. 01/03-seen at bedside with her and nursing. She is less confused this afternoon and is starting to feel better. Blood cultures are positive for gram- positive cocci in both sets. Urine culture is without growth. Vancomycin added to regimen. Patient really had not been having fevers chills. She has been feeling poorly for a few days prior to presenting to the hospital however. She does have some wounds in the lower legs where she has scratched at areas of eczema. 2continues to improve. Mentation seems back to normal. Did have episode of chest tightness this morning, she is noted similar episodes in the past. Occurred at rest. She had had systolic blood pressure in the 200 range, had received hydralazine the time of onset with blood pressure down to the 140s. Cultures have identified pansensitive Staphylococcus aureus. Discussed with infectious disease, echo is ordered, will also obtain CT of the chest as well as the left shoulder where she has been having some pain. eveloped some dyspnea just about midnight. Also had low-grade fever. Received acetaminophen and breathing treatment. Also received 20 mg of Lasix with significant improvement in dyspnea. Feel little more dyspneic this morning as well. Review of intake/output shows she is about 6 L positive. Discussed with Dr. Vuong for infectious disease. CT scan images reviewed with him. Form al report now shows probable abscess in the left upper lung region extrapleural space. Still with left shoulder pain, query if it is related to the abscess. 01/06-patient feels a lot better since admission. at bedside. Discussed blood cultures/imaging findings and treatment plan. Abscess drainage scheduled for 2 PM. Surveillance cultures from 01/04+ for gram-positive cocci. MSSA on initial cultures. On IV cefazolin as per ID. ID recommends transesophageal echocardiogram as outpatient. Continuing antibiotic coverage. White count down from 20,200-12.6. Potassium improved from 2.8-3.3. UA pyuria. Remains afebrile. 01/07-pansensitive staph aureus currently on cefazolin. ID recommends at least 4 weeks antibiotics. Potassium 3.1 on replacement. White count 12.3. Will require outpatient transesophageal echocardiogram. Surveillance blood cultures negative so far. 01/08-patient doing well. No overnight events. Drain output over 30 cc left anterior chest. Pansensitive staph aureus. Surveillance cultures from 01/06- so far. Continuing IV antibiotics as per id. PICC line placement today. No overnight fever chills. White count 11.4. Potassium 3.6, phosphorus up to 2.5 01/09 Feeling better. No overnight events. No new complaints. Cough much improved. No real noticeable shortness of breath. Occasional headache 01/10 Quite a bit of drainage after TPA via catheter overnight. No overnight events. Does have a little bit of left upper chest discomfort where the catheter is in place. 01/11 She has been having crampy left upper chest pain in the evenings since the TPA was delivered, and causing pleuritic pain. There was no other complaints. 01/12 Slept well. Feeling better. Patient cough. Does still have some shortness of breath because she feels pain when she takes a deep breath. Otherwise no complaints. 01/13 Feeling better today. Able to cough out more phlegm. Left upper chest discomfort but improved. Slept good last night. Breathing better, denying shortness of breath at rest 01/14 States he has generalized soreness from coughing that kept her awake part of the night. Some dyspnea but continues to improve. TPA given yesterday and has some bloody drainage in the catheter bag Review of Systems: denies fever/chills/nausea/vomiting/abdominal pain/diarrhea. Otherwise see above. - Constitutional Vitals: Vital Signs Temp Pulse Resp BP Pulse Ox 98.0 F 70 18 158/82 90 01/14/19 07:28 01/14/19 07:28 01/14/19 07:28 01/14/19 07:28 01/14/19 07:28 Period Temp Pulse Resp BP Sys/Mccullough Pulse Ox Last 24 Hr 97.6 F-99.4 F 59-77 16-18 106-158/56-82 90-95 Intake and Output 01/13/19 01/14/19 01/14/19 21:59 05:59 13:59 Intake Total 835 610 Output Total 715 420 Balance 120 190 Weight 79.968 kg Intake & Output: Intake & Output 01/13/19 01/14/19 01/14/19 21:59 05:59 13:59 Intake Total 835 610 Output Total 715 420 Balance 120 190 Weight 79.968 kg Intake: Oral 800 600 Input, Drain Irrigation Amount 35 10 Left Upper T-Tube 35 10 Output: Drainage 15 170 Left Upper T-Tube 15 170 Void Amount 700 250 Other: Meal Dinner Percent of Meal Consumed 100% Feeding Ability Assist with Tray Set Up Urine Appearance Clear Urine Color Dark Yellow Urine Odor Strong Exam: General: Alert, Awake, No acute Distress Eyes/N/T: EOMI, Head/Neck: neck supple, CV: RRR, No murmurs, Pulm: Diminished left upper lobe, mild b/l wheezing. chest tube replaced with 12f Abd: soft, nontender, +BS x4 Ext: no clubbing/cyanosis/edema Neuro: Alert, no focal deficits, moves all extremities, Skin: warm/dry Medical - PN: Obj Da - Labs CBC & Chem 7: 01/14/19 04:19 01/14/19 04:19 Labs: Abnormal Lab Results 01/14/19 01/14/19 01/13/19 04:19 04:19 04:45 WBC 13.9 H RBC 3.34 L Hgb 9.5 L Hct 29.0 L Lymph % (Auto) 9.4 L Gran # 10.6 H Lymph # (Auto) 1.3 L [place] # (Auto) 1.6 H Lymphocytes % Metamyelocytes % WBC Morphology Toxic Granulation RBC Morphology Polychromasia Sodium 132 L 132 L Chloride 94 L Glucose 108 H 106 H Calcium 8.2 L 8.2 L Albumin Globulin Albumin/Globulin Ratio 01/13/19 01/12/19 01/12/19 04:45 04:20 04:20 WBC 13.6 H 14.1 H RBC 3.32 L 3.48 L Hgb 9.4 L 9.9 L Hct 29.0 L 30.3 L Lymph % (Auto) 10.1 L Gran # 10.5 H Lymph # (Auto) 1.4 L [place] # (Auto) 1.6 H Lymphocytes % 8 L Metamyelocytes % WBC Morphology Abnorm A Toxic Granulation 1+ A RBC Morphology Polychromasia Sodium 130 L Chloride 92 L Glucose 106 H Calcium Albumin 2.7 L Globulin 4.4 H Albumin/Globulin Ratio 0.6 L 01/11/19 06:00 WBC RBC Hgb Hct Lymph % (Auto) Gran # Lymph # (Auto) [place] # (Auto) Lymphocytes % 9 L Metamyelocytes % 1 H WBC Morphology Abnorm A Toxic Granulation 1+ A RBC Morphology Abnorm A Polychromasia Few A Sodium Chloride Glucose Calcium Albumin Globulin Albumin/Globulin Ratio Meds: Medications Acetaminophen (Tylenol) 650 mg PO Q6HP PRN PRN Reason: PAIN/FEVER > 101 Last Admin: 01/13/19 22:22 Dose: 650 mg Documented by: Albuterol/Ipratropium (Duoneb) 3 ml NEB Q4HP PRN PRN Reason: Shortness Of Breath Or Wheezing Last Admin: 01/11/19 20:01 Dose: 3 ml Documented by: Amlodipine Besylate (Norvasc) 10 mg PO DAILY [facility] Last Admin: 01/13/19 08:26 Dose: 10 mg Documented by: Bisacodyl (Dulcolax) 10 mg PO DAILYP PRN PRN Reason: Constipation Cefazolin Sodium (Ancef) 2 gm IV Q8H [facility]; Protocol Last Admin: 01/14/19 05:24 Dose: 2 gm Documented by: Clonidine HCl (Catapres) 0.1 mg PO QIDP PRN PRN Reason: sbp>150 Last Admin: 01/12/19 20:58 Dose: 0.1 mg Documented by: Diphenhydramine HCl (Benadryl) 25 mg IV Q4HP PRN PRN Reason: Allergic Symptoms Last Admin: 01/10/19 21:38 Dose: 25 mg Documented by: Enoxaparin Sodium (Lovenox) 40 mg SQ DAILY [facility] Last Admin: 01/13/19 08:28 Dose: 40 mg Documented by: Furosemide (Lasix) 20 mg IV DAILY [facility] Last Admin: 01/13/19 08:26 Dose: 20 mg Documented by: Heparin Sodium (Porcine) (Heparin Flush) 2 ml IV Q12 [facility] Last Admin: 01/13/19 20:48 Dose: 2 ml Documented by: Hydralazine HCl (Apresoline) 20 mg IV Q2HP PRN PRN Reason: Hypertension Last Admin: 01/11/19 19:32 Dose: 20 mg Documented by: Magnesium Sulfate (Magnesium Sulfate) 2 gm in 50 mls @ 50 mls/hr IV UD PRN PRN Reason: Mag < or = 1.7 Ketorolac Tromethamine (Ketorolac Tromethamine) 0 ml OP BID [facility] Last Admin: 01/13/19 20:49 Dose: Not Given Documented by: Latanoprost (Xalatan Ophth Drops) 1 gtt OU HS [facility] Last Admin: 01/13/19 20:49 Dose: 1 gtt Documented by: Lidocaine (Lidoderm) 1 patch TOPICAL DAILY@1000 NNEKA Last Admin: 01/13/19 11:05 Dose: 1 patch Documented by: Lisinopril (Zestril) 20 mg PO DAILY [facility] Last Admin: 01/13/19 08:26 Dose: 20 mg Documented by: Magnesium Hydroxide (Milk Of Magnesia) 30 ml PO DAILYP PRN PRN Reason: Constipation Morphine Sulfate (Morphine) 1 - 3 mg IV Q3HP PRN PRN Reason: PAIN LEVEL > 6 Last Admin: 01/12/19 12:56 Dose: 2 mg Documented by: Mupirocin (Bactroban Oint 2%) 1 dose NARES BID [facility] Last Admin: 01/13/19 20:47 Dose: 1 dose Documented by: Ondansetron HCl (Zofran) 4 mg IV Q4HP PRN PRN Reason: Nausea And Vomiting Pantoprazole Sodium (Protonix) 40 mg PO QAMAC [facility] Last Admin: 01/13/19 08:26 Dose: 40 mg Documented by: Potassium Chloride (Potassium Chloride) 15 meq PT BIDCC [facility] Last Admin: 01/13/19 15:36 Dose: Not Given Documented by: Sodium Chloride (Saline Flush) 10 ml IV Q8 [facility] Last Admin: 01/14/19 05:24 Dose: 10 ml Documented by: Sodium Chloride (Saline Flush) 10 ml IV UD PRN PRN Reason: FLUSH Sodium Chloride (Saline Flush) 10 ml IV Q12 [facility] Last Admin: 01/13/19 20:49 Dose: 10 ml Documented by: Timolol Maleate (Timoptic 0.5% Ophth Drops) 1 gtt OU BID [facility] Last Admin: 01/13/19 20:49 Dose: 1 gtt Documented by: Tramadol HCl (Ultram) 50 mg PO Q4HP PRN PRN Reason: Pain Last Admin: 01/13/19 23:02 Dose: 50 mg Documented by: Medical - PN: A/P - Time Spent With Patient Total time spent is greater than 50% in coordination of care (as documented) at patient's floor/unit and/or counseling patient: - Narrative A/P Narrative: A: *Sepsis: 2/2 MSSA bacteremia -Leukocytosis improved, but bumping up again (pt feels better today, at procedure yesterday) *JUANA abscess: s/p CT-guided drain placement with replacement tube 12f catheter (01/11) and irrigation -leukocytosis *MSSA bacteremia: -surveillance cultures since 01/04 negative -no vegetations noted on TTE *Hypophos/Ovi: improved *Acute cystitis. 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 Pt not aware of history Plan: -Continue IV antibiotics as per ID, Cefazolin 2 gm q8, Tentative stop date: Feb 02 2019; labs: CBC, BMP weekly & ESR and CRP every other week -PICC line placed -Continue chest drain care, Rads following, tpa given -f/u CT chest today -GABRIELA scheduled at [facility] on at 10am as outpatient -Continue amlodipine 10mg/JORDAN inhibitor(increased to 20mg)/as needed hydralazine, further adjustment per PCP -will start ASA when bloody drainage improved from chest catheter -Discharge planning per case management for long-term antibiotic -pt/ot -ppx: heparin DNR
[2019-01-14] MEDS: PANTOPRAZOLE 40 MG TABLET PO SCH (08:18)
[2019-01-14] MEDS: POTASSIUM CHLORIDE 20 MEQ/15 ML ML PT SCH ×2 (09:49→17:14)
[2019-01-14] MEDS: amLODIPine 5 MG TABLET PO SCH (09:50)
[2019-01-14] MEDS: FUROSEMIDE 20 MG/2 ML VIAL IV SCH (09:50)
[2019-01-14] MEDS: ENOXAPARIN 40 MG/0.4 ML SYRINGE SQ SCH (09:50)
[2019-01-14] MEDS: MUPIROCIN OINT 2% 22GM NARES SCH ×2 (09:52→20:51)
[2019-01-14] MEDS: KETOROLAC TROMETHAMINE 3 ML DROPS OP SCH ×2 (09:53→20:52)
[2019-01-14] MEDS: TIMOLOL 0.5% OPHTH DROPS BOTTLE 5ML OU SCH ×2 (09:55→20:52)
[2019-01-14] MEDS: LISINOPRIL 20 MG TABLET PO SCH (09:58)
[2019-01-14] MEDS: LIDOCAINE PATCH TOPICAL SCH (09:58)
--- NOTE | 2019-01-14 14:23 | Infectious Disease Prog Note ---
Subjective Patient information: Note initiated : 01/14/19 at 1:56 pm Service Date, if different from initiated Date: [] Patient: Fiorella Leon 78 y/o F admitted on 01/02/19 for Shoulder pain, Change in LOC. Chief Complaint: [] Interval history: Pt doing well. The Left chest wall drain was pulled out today. Pt reports minimal chest pain on left side on deep breathing. Denied any other symptoms. Discussed f/u details in ID clinic, potential side effscts of IV Cefazolin. Objective Objective Narrative: ao x 3, in nad no thrush chest cta except some decreased BS on left lower lung s1 s2 normal bs ++ nttd no edema Left chest wall drain wound under dressing - Vital Signs Vital signs: Vital Signs Temp Pulse Pulse Resp BP Pulse Ox 01/14/19 12:00 36.7 C 92 H 18 149/84 92 01/14/19 08:15 70 18 91 01/14/19 07:28 36.7 C 70 18 158/82 90 01/14/19 03:50 36.9 C 69 18 154/59 92 01/13/19 23:31 37.2 C 70 18 144/62 92 01/13/19 23:07 36.4 C 01/13/19 19:39 36.4 C 75 16 106/58 91 01/13/19 19:38 76 01/13/19 19:27 62 18 91 01/13/19 16:00 36.8 C 59 L 18 122/56 91 01/13/19 13:57 65 16 Intake and Output 01/13/19 01/14/19 01/14/19 21:59 05:59 13:59 Intake Total 835 610 Output Total 715 420 250 Balance 120 190 -250 Intake: Oral 800 600 Input, Drain Irrigation Amount 35 10 Left Upper T-Tube 35 10 Output: Drainage 15 170 Left Upper T-Tube 15 170 Void Amount 700 250 250 Other: Meal Dinner Percent of Meal Consumed 100% Feeding Ability Assist with Tray Set Up Urine Appearance Clear Urine Color Dark Yellow Urine Odor Strong Weight 79.968 kg Intake & Output: Intake & Output 01/13/19 01/14/19 01/14/19 21:59 05:59 13:59 Intake Total 835 610 Output Total 715 420 250 Balance 120 190 -250 Weight 79.968 kg Intake: Oral 800 600 Input, Drain Irrigation Amount 35 10 Left Upper T-Tube 35 10 Output: Drainage 15 170 Left Upper T-Tube 15 170 Void Amount 700 250 250 Other: Meal Dinner Percent of Meal Consumed 100% Feeding Ability Assist with Tray Set Up Urine Appearance Clear Urine Color Dark Yellow Urine Odor Strong - Lab 01/14/19 04:19 01/14/19 04:19 Most recent lab results Calcium 8.2 mg/dl (8.6-10.4) L 01/14/19 04:19 Phosphorus 2.8 mg/dL (2.7-4.5) 01/12/19 04:20 Magnesium 2.1 mg/dL (1.6-2.5) 01/12/19 04:20 Microbiology 01/11/19 12:55 Pleural Fluid Gram Stain - Final 01/11/19 12:55 Pleural Fluid Body Fluid Culture - Final 01/06/19 09:18 Blood Blood Culture - Final 01/06/19 09:41 Blood Blood Culture - Final 01/04/19 14:27 Blood Blood Culture - Final Staphylococcus aureus 01/04/19 15:36 Blood Blood Culture - Final 01/06/19 14:30 Lung - Left Gram Stain - Final 01/06/19 14:30 Lung - Left Abscess Culture - Final 01/02/19 17:00 Blood Blood Culture - Final Staphylococcus aureus 01/02/19 16:40 Urine - Clean Void Mid-Stream Urine Culture - Final 01/02/19 15:23 Blood Blood Culture - Final Staphylococcus aureus 01/04/19 03:52 Nose MRSA (PCR) - Final Medications Active Medications: Acetaminophen (Tylenol) 650 mg PO Q6HP PRN PRN Reason: PAIN/FEVER > 101 Last Admin: 01/13/19 22:22 Dose: 650 mg Documented by: Admin: 01/13/19 13:08 Dose: 650 mg Documented by: [email or web address] Admin: 01/13/19 01:27 Dose: 650 mg Documented by: Admin: 01/11/19 20:18 Dose: 650 mg Documented by: Admin: 01/10/19 19:40 Dose: 650 mg Documented by: Admin: 01/10/19 03:38 Dose: 650 mg Documented by: Admin: 01/09/19 21:15 Dose: 650 mg Documented by: Admin: 01/09/19 14:36 Dose: 650 mg Documented by: Admin: 01/09/19 03:35 Dose: 650 mg Documented by: Admin: 01/08/19 16:52 Dose: 650 mg Documented by: Admin: 01/06/19 18:38 Dose: 650 mg Documented by: Admin: 01/04/19 23:56 Dose: 650 mg Documented by: LAURA Albuterol/Ipratropium (Duoneb) 3 ml NEB Q4HP PRN PRN Reason: Shortness Of Breath Or Wheezing Last Admin: 01/11/19 20:01 Dose: 3 ml Documented by: Admin: 01/11/19 08:06 Dose: 3 ml Documented by: [email or web address] Admin: 01/11/19 03:40 Dose: 3 ml Documented by: Admin: 01/09/19 19:45 Dose: 3 ml Documented by: Admin: 01/07/19 11:54 Dose: 3 ml Documented by: [email or web address] Admin: 01/06/19 05:35 Dose: 3 ml Documented by: Admin: 01/04/19 23:56 Dose: 3 ml Documented by: LAURA Amlodipine Besylate (Norvasc) 10 mg PO DAILY NNEKA Last Admin: 01/14/19 09:50 Dose: 10 mg Documented by: [email or web address] Admin: 01/13/19 08:26 Dose: 10 mg Documented by: [email or web address] Admin: 01/12/19 09:16 Dose: 10 mg Documented by: Admin: 01/11/19 11:05 Dose: 10 mg Documented by: Admin: 01/10/19 07:23 Dose: 10 mg Documented by: Admin: 01/09/19 10:53 Dose: 10 mg Documented by: Admin: 01/08/19 08:14 Dose: 10 mg Documented by: Admin: 01/07/19 09:51 Dose: 10 mg Documented by: Admin: 01/06/19 09:57 Dose: Not Given Documented by: NICANOR Non-Admin Reason: NPO Admin: 01/05/19 09:44 Dose: 10 mg Documented by: NICANOR Bisacodyl (Dulcolax) 10 mg PO DAILYP PRN PRN Reason: Constipation Cefazolin Sodium (Ancef) 2 gm IV Q8H [facility]; Protocol Last Admin: 01/14/19 05:24 Dose: 2 gm Documented by: Admin: 01/13/19 21:25 Dose: 2 gm Documented by: Admin: 01/13/19 13:14 Dose: 2 gm Documented by: Admin: 01/13/19 05:23 Dose: 2 gm Documented by: Admin: 01/12/19 21:01 Dose: 2 gm Documented by: Admin: 01/12/19 14:01 Dose: 2 gm Documented by: Admin: 01/12/19 06:09 Dose: 2 gm Documented by: Admin: 01/11/19 22:06 Dose: 2 gm Documented by: Admin: 01/11/19 15:58 Dose: 2 gm Documented by: Admin: 01/11/19 06:07 Dose: 2 gm Documented by: Admin: 01/10/19 21:39 Dose: 2 gm Documented by: Admin: 01/10/19 14:12 Dose: 2 gm Documented by: Admin: 01/10/19 05:29 Dose: 2 gm Documented by: Admin: 01/09/19 21:13 Dose: 2 gm Documented by: Admin: 01/09/19 15:51 Dose: 2 gm Documented by: Admin: 01/09/19 05:20 Dose: 2 gm Documented by: Admin: 01/08/19 21:37 Dose: 2 gm Documented by: Admin: 01/08/19 13:52 Dose: 2 gm Documented by: Admin: 01/08/19 05:41 Dose: 2 gm Documented by: Admin: 01/07/19 21:38 Dose: 2 gm Documented by: Admin: 01/07/19 14:03 Dose: 2 gm Documented by: Admin: 01/07/19 05:30 Dose: 2 gm Documented by: Admin: 01/06/19 21:14 Dose: 2 gm Documented by: Admin: 01/06/19 15:38 Dose: 2 gm Documented by: Admin: 01/06/19 05:21 Dose: 2 gm Documented by: Admin: 01/05/19 21:16 Dose: 2 gm Documented by: Admin: 01/05/19 17:06 Dose: 2 gm Documented by: Admin: 01/05/19 05:31 Dose: 2 gm Documented by: Admin: 01/04/19 21:02 Dose: 2 gm Documented by: LAURA Clonidine HCl (Catapres) 0.1 mg PO QIDP PRN PRN Reason: sbp>150 Last Admin: 01/12/19 20:58 Dose: 0.1 mg Documented by: Admin: 01/12/19 04:05 Dose: 0.1 mg Documented by: GAURAV Diphenhydramine HCl (Benadryl) 25 mg IV Q4HP PRN PRN Reason: Allergic Symptoms Last Admin: 01/10/19 21:38 Dose: 25 mg Documented by: GAURAV Enoxaparin Sodium (Lovenox) 40 mg SQ DAILY [facility] Last Admin: 01/14/19 09:50 Dose: 40 mg Documented by: [email or web address] Admin: 01/13/19 08:28 Dose: 40 mg Documented by: [email or web address] Admin: 01/12/19 09:15 Dose: 40 mg Documented by: Admin: 01/11/19 11:06 Dose: 40 mg Documented by: Admin: 01/10/19 07:21 Dose: 40 mg Documented by: Admin: 01/09/19 10:53 Dose: 40 mg Documented by: Admin: 01/08/19 08:15 Dose: 40 mg Documented by: Admin: 01/07/19 09:52 Dose: 40 mg Documented by: Admin: 01/06/19 10:10 Dose: 40 mg Documented by: Admin: 01/05/19 09:44 Dose: 40 mg Documented by: NICANOR Furosemide (Lasix) 20 mg IV DAILY [facility] Last Admin: 01/14/19 09:50 Dose: 20 mg Documented by: [email or web address] Admin: 01/13/19 08:26 Dose: 20 mg Documented by: Admin: 01/12/19 09:16 Dose: 20 mg Documented by: Admin: 01/11/19 11:05 Dose: 20 mg Documented by: Admin: 01/10/19 07:23 Dose: 20 mg Documented by: Admin: 01/09/19 10:53 Dose: 20 mg Documented by: Admin: 01/08/19 08:18 Dose: 20 mg Documented by: Admin: 01/07/19 09:51 Dose: 20 mg Documented by: Admin: 01/06/19 10:10 Dose: 20 mg Documented by: NICANOR Heparin Sodium (Porcine) (Heparin Flush) 2 ml IV Q12 NNEKA Last Admin: 01/14/19 09:53 Dose: 2 ml Documented by: [email or web address] Admin: 01/13/19 20:48 Dose: 2 ml Documented by: Admin: 01/13/19 08:27 Dose: 2 ml Documented by: Admin: 01/12/19 20:59 Dose: 2 ml Documented by: Admin: 01/12/19 09:18 Dose: 2 ml Documented by: Admin: 01/11/19 22:05 Dose: 2 ml Documented by: Admin: 01/11/19 11:07 Dose: 2 ml Documented by: Admin: 01/10/19 21:40 Dose: 2 ml Documented by: Admin: 01/10/19 11:52 Dose: 2 ml Documented by: Admin: 01/09/19 21:13 Dose: 2 ml Documented by: Admin: 01/09/19 10:52 Dose: 2 ml Documented by: Admin: 01/08/19 21:25 Dose: 2 ml Documented by: LUISA Hydralazine HCl (Apresoline) 20 mg IV Q2HP PRN PRN Reason: Hypertension Last Admin: 01/11/19 19:32 Dose: 20 mg Documented by: GAURAV Magnesium Sulfate (Magnesium Sulfate) 2 gm in 50 mls @ 50 mls/hr IV UD PRN PRN Reason: Mag < or = 1.7 Ketorolac Tromethamine (Ketorolac Tromethamine) 0 ml OP BID NNEKA Last Admin: 01/14/19 09:53 Dose: Not Given Documented by: [email or web address] Non-Admin Reason: Patient Refused Admin: 01/13/19 20:49 Dose: Not Given Documented by: NICK Non-Admin Reason: Patient Refused Admin: 01/13/19 08:29 Dose: Not Given Documented by: [email or web address] Non-Admin Reason: Patient Refused Admin: 01/12/19 21:00 Dose: Not Given Documented by: NICK Non-Admin Reason: Patient Refused Admin: 01/12/19 09:18 Dose: 1 ml Documented by: Admin: 01/11/19 22:34 Dose: Not Given Documented by: GAURAV Non-Admin Reason: Patient Request Admin: 01/11/19 11:13 Dose: 3 ml Documented by: YOGI Comments: 1 drop per eye Admin: 01/10/19 21:53 Dose: Not Given Documented by: GAURAV Non-Admin Reason: Patient Request Admin: 01/10/19 11:53 Dose: 3 ml Documented by: Admin: 01/09/19 21:14 Dose: Not Given Documented by: LUISA Non-Admin Reason: Patient Refused Admin: 01/09/19 11:24 Dose: 1 ml Documented by: Admin: 01/08/19 21:26 Dose: Not Given Documented by: LUISA Non-Admin Reason: Patient Refused Admin: 01/08/19 08:19 Dose: Not Given Documented by: KELLY Non-Admin Reason: Patient Refused Admin: 01/07/19 20:11 Dose: Not Given Documented by: SERENE Non-Admin Reason: Patient Refused Admin: 01/07/19 09:53 Dose: 3 ml Documented by: Admin: 01/06/19 21:16 Dose: 1 ml Documented by: Admin: 01/06/19 10:10 Dose: 3 ml Documented by: Admin: 01/05/19 21:19 Dose: Not Given Documented by: NICK Non-Admin Reason: Patient Refused Admin: 01/05/19 10:14 Dose: 1 ml Documented by: NICANOR Comments: Would not scan Admin: 01/04/19 21:04 Dose: 1 ml Documented by: LAURA Comments: barcode unable to scan for all eye medications Latanoprost (Xalatan Ophth Drops) 1 gtt OU HS [facility] Last Admin: 01/13/19 20:49 Dose: 1 gtt Documented by: Admin: 01/12/19 21:02 Dose: 1 gtt Documented by: Admin: 01/11/19 22:06 Dose: 1 gtt Documented by: Admin: 01/10/19 21:42 Dose: 1 gtt Documented by: Admin: 01/09/19 21:14 Dose: 1 gtt Documented by: Admin: 01/08/19 21:27 Dose: 1 gtt Documented by: Admin: 01/07/19 20:12 Dose: 1 gtt Documented by: Admin: 01/06/19 21:17 Dose: 1 gtt Documented by: Admin: 01/05/19 21:19 Dose: 1 gtt Documented by: Admin: 01/04/19 21:04 Dose: 1 gtt Documented by: LAURA Lidocaine (Lidoderm) 1 patch TOPICAL DAILY@1000 [facility] Last Admin: 01/14/19 09:58 Dose: 1 patch Documented by: Admin: 01/13/19 11:05 Dose: 1 patch Documented by: Admin: 01/12/19 10:08 Dose: 1 patch Documented by: Admin: 01/11/19 09:46 Dose: 1 patch Documented by: YOGI Lisinopril (Zestril) 20 mg PO DAILY [facility] Last Admin: 01/14/19 09:58 Dose: 20 mg Documented by: [email or web address] Admin: 01/13/19 08:26 Dose: 20 mg Documented by: Admin: 01/12/19 09:16 Dose: 20 mg Documented by: Admin: 01/11/19 11:06 Dose: 20 mg Documented by: YOGI Magnesium Hydroxide (Milk Of Magnesia) 30 ml PO DAILYP PRN PRN Reason: Constipation Morphine Sulfate (Morphine) 1 - 3 mg IV Q3HP PRN PRN Reason: PAIN LEVEL > 6 Last Admin: 01/12/19 12:56 Dose: 2 mg Documented by: MUSA Mupirocin (Bactroban Oint 2%) 1 dose NARES BID [facility] Last Admin: 01/14/19 09:52 Dose: 1 dose Documented by: [email or web address] Comments: unable to scan Admin: 01/13/19 20:47 Dose: 1 dose Documented by: Admin: 01/13/19 08:27 Dose: 1 dose Documented by: [email or web address] Admin: 01/12/19 20:59 Dose: 1 dose Documented by: Admin: 01/12/19 09:17 Dose: 1 dose Documented by: MUSA Comments: wont scan Admin: 01/11/19 22:06 Dose: 1 dose Documented by: Admin: 01/11/19 12:36 Dose: Not Given Documented by: YOGI Non-Admin Reason: Patient Refused Admin: 01/10/19 21:42 Dose: 1 dose Documented by: Admin: 01/10/19 11:53 Dose: 1 dose Documented by: Admin: 01/09/19 21:23 Dose: 1 dose Documented by: Admin: 01/09/19 11:24 Dose: 1 dose Documented by: Admin: 01/08/19 21:25 Dose: 1 dose Documented by: Admin: 01/08/19 08:16 Dose: 1 dose Documented by: Admin: 01/07/19 20:11 Dose: 1 dose Documented by: Admin: 01/07/19 09:52 Dose: 1 dose Documented by: Admin: 01/06/19 21:14 Dose: 1 dose Documented by: Admin: 01/06/19 10:08 Dose: 1 dose Documented by: Admin: 01/05/19 21:18 Dose: 1 dose Documented by: Admin: 01/05/19 09:45 Dose: 1 dose Documented by: Admin: 01/04/19 21:06 Dose: 1 dose Documented by: LAURA Comments: barcode not scanning - saying discontinued Ondansetron HCl (Zofran) 4 mg IV Q4HP PRN PRN Reason: Nausea And Vomiting Pantoprazole Sodium (Protonix) 40 mg PO QAMAC [facility] Last Admin: 01/14/19 08:18 Dose: 40 mg Documented by: [email or web address] Admin: 01/13/19 08:26 Dose: 40 mg Documented by: [email or web address] Admin: 01/12/19 07:36 Dose: 40 mg Documented by: Admin: 01/11/19 07:40 Dose: 40 mg Documented by: Admin: 01/10/19 07:22 Dose: 40 mg Documented by: Admin: 01/09/19 08:35 Dose: 40 mg Documented by: Admin: 01/08/19 08:16 Dose: 40 mg Documented by: Admin: 01/07/19 07:24 Dose: 40 mg Documented by: Admin: 01/06/19 09:57 Dose: Not Given Documented by: NICANOR Non-Admin Reason: NPO Admin: 01/05/19 09:45 Dose: 40 mg Documented by: NICANOR Potassium Chloride (Potassium Chloride) 15 [facility]q [facility] Admin: 01/14/19 09:49 Dose: Not Given Documented by: [email or web address] Non-Admin Reason: Patient Refused Admin: 01/13/19 15:36 Dose: Not Given Documented by: [email or web address] Non-Admin Reason: Patient Refused Admin: 01/13/19 08:20 Dose: Not Given Documented by: [email or web address] Non-Admin Reason: Patient Refused Admin: 01/12/19 17:43 Dose: Not Given Documented by: MUSA Non-Admin Reason: Patient Refused Admin: 01/12/19 07:36 Dose: Not Given Documented by: THANIAF Non-Admin Reason: Patient Refused Admin: 01/11/19 17:58 Dose: Not Given Documented by: YOGI Non-Admin Reason: Patient Refused Admin: 01/11/19 09:44 Dose: Not Given Documented by: YOGI Non-Admin Reason: pt refused Admin: 01/10/19 16:31 Dose: 15 meq Documented by: Admin: 01/10/19 07:21 Dose: 15 meq Documented by: Admin: 01/09/19 17:35 Dose: 15 meq Documented by: Admin: 01/09/19 08:44 Dose: 15 meq Documented by: Admin: 01/08/19 16:52 Dose: 15 meq Documented by: Admin: 01/08/19 08:16 Dose: 15 meq Documented by: Admin: 01/07/19 17:53 Dose: 15 meq Documented by: HOPE Sodium Chloride (Saline Flush) 10 ml IV Q8 NNEKA Last Admin: 01/14/19 05:24 Dose: 10 ml Documented by: Admin: 01/13/19 21:25 Dose: 10 ml Documented by: Admin: 01/13/19 13:14 Dose: 10 ml Documented by: Admin: 01/13/19 05:23 Dose: 10 ml Documented by: Admin: 01/12/19 21:00 Dose: 10 ml Documented by: Admin: 01/12/19 14:02 Dose: 10 ml Documented by: Admin: 01/12/19 06:09 Dose: 10 ml Documented by: Admin: 01/11/19 22:05 Dose: 10 ml Documented by: Admin: 01/11/19 15:58 Dose: 10 ml Documented by: Admin: 01/11/19 06:07 Dose: 10 ml Documented by: Admin: 01/10/19 21:40 Dose: 10 ml Documented by: Admin: 01/10/19 14:14 Dose: 10 ml Documented by: Admin: 01/10/19 11:54 Dose: 10 ml Documented by: Admin: 01/10/19 07:21 Dose: 10 ml Documented by: Admin: 01/10/19 05:28 Dose: 10 ml Documented by: Admin: 01/09/19 21:18 Dose: 10 ml Documented by: Admin: 01/09/19 15:51 Dose: 10 ml Documented by: Admin: 01/09/19 05:20 Dose: 10 ml Documented by: Admin: 01/08/19 21:26 Dose: 10 ml Documented by: Admin: 01/08/19 13:52 Dose: 10 ml Documented by: Admin: 01/08/19 05:41 Dose: 10 ml Documented by: Admin: 01/07/19 21:39 Dose: 10 ml Documented by: Admin: 01/07/19 14:04 Dose: 10 ml Documented by: Admin: 01/07/19 05:30 Dose: 10 ml Documented by: Admin: 01/06/19 21:18 Dose: 10 ml Documented by: Admin: 01/06/19 15:38 Dose: 10 ml Documented by: Admin: 01/06/19 05:22 Dose: 10 ml Documented by: Admin: 01/05/19 21:20 Dose: 10 ml Documented by: Admin: 01/05/19 17:06 Dose: 10 ml Documented by: Admin: 01/05/19 05:32 Dose: 10 ml Documented by: Admin: 01/04/19 21:02 Dose: 10 ml Documented by: LAURA Sodium Chloride (Saline Flush) 10 ml IV UD PRN PRN Reason: FLUSH Sodium Chloride (Saline Flush) 10 ml IV Q12 NNEKA Last Admin: 01/14/19 09:54 Dose: 10 ml Documented by: [email or web address] Admin: 01/13/19 20:49 Dose: 10 ml Documented by: Admin: 01/13/19 08:28 Dose: 10 ml Documented by: [email or web address] Admin: 01/12/19 21:04 Dose: 10 ml Documented by: Admin: 01/12/19 09:19 Dose: 10 ml Documented by: Admin: 01/11/19 22:06 Dose: 10 ml Documented by: Admin: 01/11/19 11:16 Dose: 10 ml Documented by: Admin: 01/10/19 21:43 Dose: 10 ml Documented by: Admin: 01/10/19 14:13 Dose: 10 ml Documented by: Admin: 01/10/19 11:55 Dose: 10 ml Documented by: Admin: 01/09/19 21:23 Dose: Not Given Documented by: LUISA Non-Admin Reason: Duplicate Admin: 01/09/19 10:54 Dose: 10 ml Documented by: Admin: 01/08/19 21:28 Dose: Not Given Documented by: LUISA Non-Admin Reason: Duplicate Timolol Maleate (Timoptic 0.5% Ophth Drops) 1 gtt OU BID NNEKA Last Admin: 01/14/19 09:55 Dose: 1 gtt Documented by: REGGIE Comments: unable to scan Admin: 01/13/19 20:49 Dose: 1 gtt Documented by: Admin: 01/13/19 08:30 Dose: 1 gtt Documented by: Admin: 01/12/19 21:02 Dose: 1 gtt Documented by: Admin: 01/12/19 09:19 Dose: 1 gtt Documented by: Admin: 01/11/19 22:07 Dose: 1 gtt Documented by: Admin: 01/11/19 11:15 Dose: 1 gtt Documented by: Admin: 01/10/19 21:41 Dose: 1 gtt Documented by: Admin: 01/10/19 11:54 Dose: 1 gtt Documented by: Admin: 01/09/19 21:14 Dose: 1 gtt Documented by: Admin: 01/09/19 11:23 Dose: 1 gtt Documented by: Admin: 01/08/19 21:28 Dose: 1 gtt Documented by: Admin: 01/08/19 08:19 Dose: 1 gtt Documented by: Admin: 01/07/19 20:13 Dose: 1 gtt Documented by: Admin: 01/07/19 09:54 Dose: 1 gtt Documented by: Admin: 01/06/19 21:17 Dose: 1 gtt Documented by: Admin: 01/06/19 10:11 Dose: 1 gtt Documented by: NICANOR Comments: will not scan Admin: 01/05/19 21:20 Dose: 1 gtt Documented by: Admin: 01/05/19 10:15 Dose: 1 gtt Documented by: Admin: 01/04/19 21:04 Dose: 1 gtt Documented by: LAURA Tramadol HCl (Ultram) 50 mg PO Q4HP PRN PRN Reason: Pain Last Admin: 01/13/19 23:02 Dose: 50 mg Documented by: Admin: 01/13/19 18:01 Dose: 50 mg Documented by: [email or web address] Admin: 01/13/19 13:09 Dose: 50 mg Documented by: [email or web address] Admin: 01/13/19 08:25 Dose: 50 mg Documented by: [email or web address] Admin: 01/12/19 20:56 Dose: 50 mg Documented by: Admin: 01/12/19 10:20 Dose: 50 mg Documented by: Admin: 01/11/19 22:07 Dose: 50 mg Documented by: Admin: 01/11/19 17:35 Dose: 50 mg Documented by: Admin: 01/11/19 03:10 Dose: 50 mg Documented by: Admin: 01/10/19 16:31 Dose: 50 mg Documented by: Admin: 01/10/19 07:22 Dose: 50 mg Documented by: Admin: 01/10/19 03:37 Dose: 50 mg Documented by: Admin: 01/09/19 23:09 Dose: 50 mg Documented by: Admin: 01/09/19 19:06 Dose: 50 mg Documented by: Admin: 01/09/19 13:44 Dose: 50 mg Documented by: Admin: 01/09/19 08:36 Dose: 50 mg Documented by: Admin: 01/09/19 02:54 Dose: 50 mg Documented by: Admin: 01/08/19 19:55 Dose: 50 mg Documented by: Admin: 01/08/19 13:52 Dose: 50 mg Documented by: Admin: 01/08/19 04:34 Dose: 50 mg Documented by: Admin: 01/07/19 21:41 Dose: 50 mg Documented by: Admin: 01/07/19 17:53 Dose: 50 mg Documented by: Admin: 01/07/19 14:03 Dose: 50 mg Documented by: Admin: 01/06/19 15:52 Dose: 50 mg Documented by: Admin: 01/05/19 17:06 Dose: 50 mg Documented by: Admin: 01/05/19 00:08 Dose: 50 mg Documented by: NSTOVER Assessment and Plan - Narrative A/P Narrative: A: 1. MSSA bacteremia: 2/2 sets +ve on 01/02, 1/2 sets on 01/04 - blood Cx neg since 01/06 - likely source skin breakdown due to eczematous skin lesions over the legs. s/p decolonization for 5 days - TTE report neg for any vegetations, mod MR 2. Left upper chest wall extrapleural abscess: sec to seeding from MSSA bacteremia. growing MSSA on cultures - initial size of (3 x 7 cm) on 01/06 -----------------> increased to size of 7 x [address] chest 01/10 - s/p IR guided drainage 01/06, with catheter malfunction, and because of increase in size; was upgraded to a larger bore catheter today. The abscess is 1/3 of its size after drainage. Of note pt refused CTS consultation for possible surgery for abscess drainage - s/p IR guided change and upsizing of chest wall drainage catheter by IR on 01/11. post proceduer CXR suggesting considerably decrease in size (now 5 cm span) - s/p repeat CT chest today with removal of IR drain 3. Left loculated pleural effusion, moderate size - s/p IR guided drainage of left loculated pleural effusion 01/12 with lab studies s/o being exudative: possible due to lot of blood in it. Cx NGTD Recommendations: - Continue IV Cefazolin 2 gm q8 hrs through PICC line, day 8 Tentative stop date: Feb 02 2019 - Follow up labs: CBC, BMP weekly ESR and CRP every other week - GABRIELA scheduled as OP on 01/18 at [facility]. will follow results. - ID clinic f/u on Feb 01 at 3:30 pm Feliberto Vuong MD Infectious diseases
--- NOTE | 2019-01-14 15:51 | Cat Scan Report ---
CLINICAL INFORMATION: Follow-up left apical extrapleural abscess COMPARISON: Chest CT 01/11/2019 TECHNIQUE: 0.625 mm axial slices were obtained from the lung apices through the bases without intravenous contrast. 2.5 mm Sagittal, coronal and axial reformatted images were processed and reviewed at bone, lung and soft tissue windows. 7 mm axial MIP images were also reconstructed to optimize pulmonary nodule detection.The exam was performed using radiation dose optimization techniques including, but not limited to, automated exposure control, adjustment of the mA and/or kV according to patient size and use of iterative reconstruction technique. FINDINGS: The extrapleural abscess in the anterior apical region of the left upper lobe as completely resolved. The 12 [place] pigtail drain remains in satisfactory position. It will be removed. 3.3 cm loculated pleural effusion in the anterior left upper lobe region is unchanged. Left pleural effusion in the left lower lobe has decreased considerably since comparison CT and is now small. Atelectasis/infiltrate in the left lower lobe is much better aerated with moderate residual posteriorly and inferiorly. The right lung is well expanded and clear. The noncontrast thoracic aorta and pulmonary arteries are normal in contour and caliber. The heart is mildly enlarged with scattered calcific plaque in the coronary arteries. Mildly enlarged lymph nodes in the lower mediastinum including the pericarinal region, AP window and saeed have involuted modestly - the largest is 10 mm. The left PICC line remains in stable position in the SVC right atrial junction. Esophagus is grossly normal. No thyroid abnormality. Bone windows show only degenerative disc disease throughout the thoracic spine. Images through the superior abdomen show no abnormality. IMPRESSION: 1. Complete resolution of anterior apical extrapleural abscess following percutaneous drainage. Percutaneous drain will be removed. 2. Left pleural effusion is decreased and is now small. 0.3 cm loculated pleural effusion over the anterior left upper lobe is unchanged, however. 3. Improving left lower lobe infiltrate with moderate patchy in the posterior /inferior region. 4. Mild underlying centrilobular emphysema. Interpreted and Authenticated by: Amrit Gasca 01/14/19
--- NOTE | 2019-01-14 16:02 | Non-GYN Cytology Report ---
NON CARPENTER REFRIGERATOR SPECIMEN NG DX CATEGORY Negative MICROSCOPIC DIAGNOSIS PLEURAL FLUID, LEFT, THORACENTESIS: -- NO ATYPICAL OR MALIGNANT CELLS IDENTIFIED. -- MIXED ACUTE AND CHRONIC INFLAMMATION WITH CELLULAR DEBRIS AND SCATTERED MESOTHELIAL CELLS, SEE COMMENT. (EBD:[email or web address]) COMMENT: The patient's clinical presentation and radiologic findings are noted. MICROSCOPIC DESCRIPTION Cytologic preparations of the left pleural effusion show mixed acute (neutrophilic) and chronic (lymphocytic) inflammation. No atypical or malignant cells are identified. (EBD:tejinder) CLINICAL HISTORY Left pleural effusion. EXTERNAL COMMENT ~550 mL cloudy dark red fluid: 1 thinprep, 1 H/E, 1 Diff Quik, 1 Meade Giemsa, 1 cell block Electronically Signed by: Keshia Farmer M.D.
[2019-01-14] MEDS: hydrALAZINE 20 MG/ML VIAL IV PRN (17:14)
[2019-01-14] MEDS: IPRATROPIUM/ALBUTEROL 3 ML AMPUL.NEB NEB PRN (18:14)
[2019-01-14] MEDS: ACETAMINOPHEN 325 MG TABLET PO PRN (18:24)
[2019-01-14] MEDS: LATANOPROST OPHTH DROPS 2.5ML BOTTLE OU SCH (20:52)
[2019-01-14] MEDS: traMADol 50 MG TABLET PO PRN (22:35)
[2019-01-15] MEDS: traMADol 50 MG TABLET PO PRN ×3 (04:55→13:16)
[2019-01-15] MEDS: ceFAZolin 1 GM VIAL IV SCH (06:10)
[2019-01-15] MEDS: 0.9 % SODIUM CHLORIDE 10 ML SYRINGE IV SCH ×2 (06:11→09:37)
[2019-01-15 06:20] LABS: Blood Urea Nitrogen 10 mg/dl (8-23); Calcium 8.5 mg/dl (8.6-10.4); Carbon Dioxide 24 mmol/L (22-30); Chloride 99 mmol/L (96-108); Glomerular Filtration Rate 84; Glucose 107 mg/dL (70-105)
[2019-01-15 07:08] LABS: Basophils # (Auto) 0 K/mcL (0.0-0.3); Basophils % (Auto) 0.3 % (0.0-2.0); Eosinophils # (Auto) 0.2 K/mcL (0.0-0.7); Eosinophils % (Auto) 1.3 % (0.0-7.0); Granulocytes % (Auto) 75.6 % (38.0-78.0); Hematocrit 28.2 % (36.0-48.0); Hemoglobin 9.4 g/dL (12.0-15.0); Lymphocytes # (Auto) 1.4 K/mcL (1.5-4.8); Lymphocytes % (Auto) 11.5 % (15.5-49.0); Mean Cell Volume 85.9 fL (80.0-100.0); Mean Corpuscular HGB Conc 33.5 g/dL (31.0-36.0); Mean Platelet Volume 8.6 fL (7.4-10.4); Monocytes # (Auto) 1.4 K/mcL (0.1-0.9); Monocytes % (Auto) 11.3 % (1.0-12.0); Platelet Count 452 K/mcL (140-440); RBC 3.28 M/mcL (4.00-5.20); Red Cell Distribution Width 13.7 % (11.5-14.5); WBC 12.2 K/mcL (4.5-11.0)
[2019-01-15] MEDS: PANTOPRAZOLE 40 MG TABLET PO SCH (07:48)
[2019-01-15] MEDS: POTASSIUM CHLORIDE 20 MEQ/15 ML ML PT SCH (07:49)
[2019-01-15] MEDS ORDERED: amLODIPine 10 MG TABLET PO SCH (09:00)
[2019-01-15] MEDS: LISINOPRIL 20 MG TABLET PO SCH (09:32)
[2019-01-15] MEDS: KETOROLAC TROMETHAMINE 3 ML DROPS OP SCH (09:37)
[2019-01-15] MEDS: MUPIROCIN OINT 2% 22GM NARES SCH (09:37)
[2019-01-15] MEDS: FUROSEMIDE 20 MG/2 ML VIAL IV SCH (09:37)
[2019-01-15] MEDS: ENOXAPARIN 40 MG/0.4 ML SYRINGE SQ SCH (09:38)
[2019-01-15] MEDS: TIMOLOL 0.5% OPHTH DROPS BOTTLE 5ML OU SCH (09:38)
[2019-01-15] MEDS: LIDOCAINE PATCH TOPICAL SCH (09:49)
--- NOTE | 2019-01-15 12:47 | Discharge Summary ---
Medical - DS: Prov Patient information: Note initiated : 01/15/19 at 12:42 pm Service Date, if different from initiated Date: [] Patient: Fiorella Leon 78 y/o F admitted on 01/02/19 for Shoulder pain, Change in LOC. Chief Complaint: [] Date of admission: 01/02/19 21:00 Discharge date: 01/15/19 Primary care physician: PCP No Consults: 01/02/19 Consult to Physician [CONS] Stat Comment: Consulting Provider: Tanya Addison Reason For Exam: Physician to Consult 01/04/19 21:27 Consult to Physician [CONS] Routine Comment: Consulting Provider: Feliberto Vuong Reason For Exam: Physician to Consult Medical - DS: Meds - Discharge Medications Prescriptions: ceFAZolin [Ancef] 2 gm IV Q8H 18 Days #56 vial Transmission Status: Pending to [facility] amLODIPine [Norvasc] 10 mg PO DAILY #30 tab Transmission Status: Pending to [facility] Lisinopril [Zestril] 20 mg PO DAILY #30 tab Transmission Status: Pending to [facility] Active and Home Medications: Home Medications Cyclobenzaprine [Flexeril] 10 mg PO TID #20 tab 01/01/19 [Rx Confirmed 01/03/19 Last Taken Unknown] Ketorolac Tromethamine 1 gtt OU BID 01/03/19 [History Confirmed 01/03/19 Last Taken Unknown] Latanoprost/Pf [Latanoprost 0.005% Eye Drop] 1 gtt OU HS 01/03/19 [History Confirmed 01/03/19 Last Taken Unknown] Timolol 0.5% Ophth Drops [Timoptic 0.5% Ophth Drops] 1 gtt OU BID 01/03/19 [History Confirmed 01/03/19 Last Taken Unknown] Lisinopril [Zestril] 20 mg PO DAILY #30 tab 01/15/19 [Rx Last Taken Unknown] amLODIPine [Norvasc] 10 mg PO DAILY #30 tab 01/15/19 [Rx Last Taken Unknown] ceFAZolin [Ancef] 2 gm IV Q8H 18 Days #56 vial 01/15/19 [Rx Last Taken Unknown] Medical - DS: Hosp Hospital Course: Discharge diagnosis *Sepsis: 2/2 MSSA bacteremia-continue IV cefazolin through February 02 as per ID recommendations. Follow-up with ID as outpatient. *JUANA abscess: s/p CT-guided drain placement with replacement tube 12f catheter (01/11) and irrigation. Drain removed after repeat CT scan shows resolution of abscess *MSSA bacteremia: -surveillance cultures since 01/04 negative -no vegetations noted on TTE -Scheduled for transesophageal echocardiogram at [facility] -We will follow-up with ID clinic Dr. Vuong -Continue cefazolin through February 02 *Hypophos/Ovi: Resolved with aggressive replacement *Acute cystitis. Clinically resolved *Encephalopathy: 2/2 sepsis, resolved *HTN urgency: Continue amlodipine/JORDAN inhibitor History of CVA Brief hospital course Ms. Leon is a 78 year old F who presents to the emergency department brought in by her with concerns of confusion. Apparently she had not been doing well for the last few days, however was just seen here yesterday with main complaint of left shoulder pain and was diagnosed with muscle spasm. She was prescribed Flexeril, it is unclear if she is taking many of those tablets. She reports back to the ED with her quite confused. Apparently she did not follow much conversation and could not give much history upon arrival though did improve after fluids. Evaluation in the emergency department shows evidence of urinary tract infection with sepsis, white count of 20 and encephalopathy. Location: Systemic; timing: Onset 1 to 2 days ago; severity: Moderate; associated symptoms: As in review of systems. Patient felt feverish last evening, she felt chilled but did not have shaking chills. She occasionally has a headache, but none currently. No neck pain or stiffness. She had some mild nausea this morning but no emesis. She is had no abdominal pain. She has had no diarrhea. She has had some dysuria. In the emergency department, the patient is also noted to be extremely hypertensive with systolic blood pressures in the 200s and diastolics in the 110's. Patient was trying to describe that she had had a hypertensive reaction to a treatment for her glaucoma but is still little confused and cannot really provide details. According to her , her blood pressure may have been high for a while but she has never been treated for hypertension. She is now being admitted for treatment of sepsis from urinary source. 01/03-seen at bedside with her and nursing. She is less confused this afternoon and is starting to feel better. Blood cultures are positive for gram- positive cocci in both sets. Urine culture is without growth. Vancomycin added to regimen. Patient really had not been having fevers chills. She has been feeling poorly for a few days prior to presenting to the hospital however. She does have some wounds in the lower legs where she has scratched at areas of eczema. 2continues to improve. Mentation seems back to normal. Did have episode of chest tightness this morning, she is noted similar episodes in the past. Occurred at rest. She had had systolic blood pressure in the 200 range, had received hydralazine the time of onset with blood pressure down to the 140s. Cultures have identified pansensitive Staphylococcus aureus. Discussed with infectious disease, echo is ordered, will also obtain CT of the chest as well as the left shoulder where she has been having some pain. 3developed some dyspnea just about midnight. Also had low-grade fever. Received acetaminophen and breathing treatment. Also received 20 mg of Lasix with significant improvement in dyspnea. Feel little more dyspneic this morning as well. Review of intake/output shows she is about 6 L positive. Discussed with Dr. Vuong for infectious disease. CT scan images reviewed with him. Formal report now shows probable abscess in the left upper lung region extrapleural space. Still with left shoulder pain, query if it is related to t he abscess. 01/06-patient feels a lot better since admission. at bedside. Discussed blood cultures/imaging findings and treatment plan. Abscess drainage scheduled for 2 PM. Surveillance cultures from 01/04+ for gram-positive cocci. MSSA on initial cultures. On IV cefazolin as per ID. ID recommends transesophageal echocardiogram as outpatient. Continuing antibiotic coverage. White count down from 20,200-12.6. Potassium improved from 2.8-3.3. UA pyuria. Remains afebrile. 01/07-pansensitive staph aureus currently on cefazolin. ID recommends at least 4 weeks antibiotics. Potassium 3.1 on replacement. White count 12.3. Will require outpatient transesophageal echocardiogram. Surveillance blood cultures negative so far. 01/08-patient doing well. No overnight events. Drain output over 30 cc left anterior chest. Pansensitive staph aureus. Surveillance cultures from 01/06- so far. Continuing IV antibiotics as per id. PICC line placement today. No overnight fever chills. White count 11.4. Potassium 3.6, phosphorus up to 2.5 01/09 Feeling better. No overnight events. No new complaints. Cough much improved. No real noticeable shortness of breath. Occasional headache 01/10 Quite a bit of drainage after TPA via catheter overnight. No overnight events. Does have a little bit of left upper chest discomfort where the catheter is in place. 01/11 She has been having crampy left upper chest pain in the evenings since the TPA was delivered, and causing pleuritic pain. There was no other complaints. 01/12 Slept well. Feeling better. Patient cough. Does still have some shortness of breath because she feels pain when she takes a deep breath. Otherwise no complaints. 01/13 Feeling better today. Able to cough out more phlegm. Left upper chest discomfort but improved. Slept good last night. Breathing better, denying shortness of breath at rest 01/14 States he has generalized soreness from coughing that kept her awake part of the night. Some dyspnea but continues to improve. TPA given yesterday and has some bloody drainage in the catheter bag 01/15-patient doing well. No overnight events. Repeat CT shows interval resolution of abscess. Drain removed by IR. Patient did well overnight without any chest pain or shortness of breath. Continue IV antibiotics 3 times a day IV cefazolin to be continued through February 02 as per ID recommendations. Patient is due for transesophageal echocardiogram on Friday at [facility]. Discharging to SNF today with continued posthospitalization care/rehab. Detailed discharge instructions as below Discharge diagnosis: . - Time Spent with Patient Total time spent providing and/or coordinating discharge services: Greater than 30 minutes Medical - DS: Exam - Constitutional Vitals: Vital Signs Temp Pulse Pulse Resp BP Pulse Ox 01/15/19 11:49 99 F 20 153/62 92 01/15/19 07:59 70 20 90 01/15/19 07:11 98.6 F 20 134/62 90 01/15/19 04:00 97.9 F 78 22 164/57 92 01/14/19 23:32 98.5 F 68 18 132/52 94 01/14/19 19:13 98.4 F 77 24 H 141/57 94 01/14/19 18:16 99.3 F H 83 24 H 143/56 92 01/14/19 18:15 84 24 H 01/14/19 16:00 98.3 F 79 18 179/63 90 Intake and Output 01/14/19 01/15/19 01/15/19 21:59 05:59 13:59 Intake Total 250 520 Output Total 250 450 450 Balance 0 70 -450 Intake: Oral 250 520 Output: Void Amount 250 450 450 # of times incontinent of urine 0 Other: Meal Dinner Percent of Meal Consumed 25% Urine Appearance Clear Urine Color Dark Yellow Bright Yellow Urine Odor Strong Normal Stool Size Moderate Stool Color Brown Stool Consistency Loose # Voids 0 # Bowel Movements 1 # of times incontinent of 0 Bowels Weight 172 lb 8 oz Medical - DS: Data Labs on day of discharge: Labs from last 24 hours 01/15/19 01/15/19 04:37 04:37 WBC 12.2 H RBC 3.28 L Hgb 9.4 L Hct 28.2 L MCV 85.9 MCH 28.8 MCHC 33.5 RDW 13.7 Plt Count 452 H MPV 8.6 Gran % 75.6 Lymph % (Auto) 11.5 L [place] % (Auto) 11.3 Eos % (Auto) 1.3 Baso % (Auto) 0.3 Gran # 9.2 H Lymph # (Auto) 1.4 L [place] # (Auto) 1.4 H Eos # (Auto) 0.2 Baso # (Auto) 0 Sodium 136 Potassium 3.9 Chloride 99 Carbon Dioxide 24 Anion Gap 13.0 BUN 10 Creatinine 0.7 GFR Calculation 84 Glucose 107 H Calcium 8.5 L Medical - DS: A/P - Patient/Caregiver Discharge Instructions Activity: as per physical therapy, increase activity as tolerated, other (PICC line care/ CAD pump for IV Abx) Diet: Regular Diet Additional Instructions: Discharge Instructions: Monitor blood pressure twice daily keep a log and bring it to your PCP follow up appointment for review. Outpatient transesophageal echocardiogram to be done at [facility] on Friday, please register at 9:00 am. Recommendations: - Continue IV Cefazolin 2 gm q8 hrs through PICC line, day 8. Tentative stop date: Feb 02 2019 - Follow up labs: CBC, BMP weekly ESR and CRP every other week - [facility]A scheduled as OP on 01/18 at [facility]. ID will follow results. - ID clinic f/u on Feb 01 at 3:30 pm Continue amlodipine 10 mg/lisinopril 20 mg for hypertension management Return to ER if fever chills/joint pain noted Prescriptions: ceFAZolin [Ancef] 2 gm IV Q8H 18 Days #56 vial Transmission Status: Pending to [facility] amLODIPine [Norvasc] 10 mg PO DAILY #30 tab Transmission Status: Pending to [facility] Lisinopril [Zestril] 20 mg PO DAILY #30 tab Transmission Status: Pending to [facility] - Follow up Plan Follow up with: [facility] [Outside] - 01/18/19 10:00 am ([facility], please call Nevaeh at discharge and she will go over the prep for your GABRIELA procedure ([phone]). You will need to check in at outpatient registration at 9:00 am for this appointment.) Feliberto Vuong MD [Physician] - 02/01/19 3:30 pm No,PCP [Primary Care Provider] - Disposition: Xfer SNF Care Plan Goals: This discharge packet is provided to you to help keep you informed about your care. We want to ensure you get everything you need when you go home. You will also be receiving a call from us in a few days to follow up with you and see how you are doing since your discharge. This gives us a chance to listen to any concerns you maybe experiencing since you were discharged or any additional needs you may have, as well as providing us feedback on your care experience. We strive to always provide excellent care and thank you for your feedback and for choosing [facility]. Prognosis: Undetermined Rehab Potential: Fair I certify that the patient requires SNF services: Yes Overall status at discharge: patient is progressing back to baseline
[2019-01-23 09:03] LABS: Nucleated Cells,Pleural Fld 3810 /cumm
== END 2019-01-15 13:30 | DRG 871 ==
LOC: ED 13:37 → ICU 21:00 → MEDSUR 01-04 16:10
PROVIDERS: ADMIT Internal Medicine; ATTEND Internal Medicine

== ENCOUNTER 2024-05-09 14:22 | Inpatient (IN) ==
[2024-05-09] MEDS ORDERED: IOPAMIDOL 100 ML BOTTLE IV ONE (14:23)
[2024-05-09] MEDS: ATROPINE SULFATE 1 MG/10 ML SYRINGE IV ONE (15:19)
[2024-05-09] MEDS: 0.9 % SODIUM CHLORIDE 250 ML IV SCH (15:20)
[2024-05-09 15:37] LABS: Basophils # (Auto) 0.05 K/mcL (0.00-0.30); Basophils % (Auto) 0.5 % (0.0-2.0); Eosinophils # (Auto) 0.14 K/mcL (0.00-0.70); Eosinophils % (Auto) 1.4 % (0.0-7.0); Hematocrit 40.1 % (34.1-44.9); Hemoglobin 12.7 g/dL (11.2-15.7); Lymphocytes # (Auto) 0.84 K/mcL (1.50-4.80); Lymphocytes % (Auto) 8.5 % (15.5-49.0); Mean Cell Volume 89.9 fL (80.0-100.0); Mean Corpuscular HGB Conc 31.7 g/dL (31.0-36.0); Mean Platelet Volume 11.5 fL (8.8-12.5); Monocytes # (Auto) 0.62 K/mcL (0.10-0.90); Monocytes % (Auto) 6.3 % (1.0-12.0); Neutrophils % (Auto) 83.1 % (38.0-78.0); Platelet Count 232 K/mcL (140-440); RBC 4.46 M/mcL (3.59-5.38); Red Cell Distribution Width 13.5 % (11.5-14.5); WBC 9.9 K/mcL (4.5-11.0)
[2024-05-09 15:58] LABS: ALT/SGPT 19 U/L (<40); AST/SGOT 24 U/L (<32); Albumin 3.7 gm/dL (3.2-5.2); Albumin/Globulin Ratio 1.1 (1.0-2.3); Alkaline Phosphatase 91 U/L (39-117); Bilirubin,Total 0.3 mg/dL (0.1-1.0); Blood Urea Nitrogen 16 mg/dL (8-23); Calcium 9.7 mg/dL (8.6-10.4); Carbon Dioxide 19 mmol/L (22-30); Chloride 106 mmol/L (96-108); Globulin 3.5 gm/dL (2.2-3.7); Glomerular Filtration Rate 69; Glucose 129 mg/dL (70-105); Potassium 3.7 mmol/L (3.3-5.1); Sodium 139 mmol/L (133-145)
[2024-05-09 16:04] LABS: Thyroid Stimulating Hormone 2.09 uIU/mL (0.27-5.01)
[2024-05-09 16:11] LABS: Prothrombin Time 13.4 sec (11.9-14.5)
[2024-05-09 16:36] LABS: Appearance,Urine Clear (Clear); Bacteria,Urine 0 /hpf (0); Bilirubin,Urine Negative (Negative); Color,Urine Yellow; Glucose,Urine (UA) Negative (Negative); Ketones,Urine 40 mg/dL (Negative); Leukocyte Esterase,Urine Small /uL (Negative); Nitrate,Urine Negative (Negative); Protein,Urine Negative (Negative); Urine Blood Large ery/mcL (Negative); Urine RBC 2 /hpf (0-3); Urine Squamous Epithelial Cell 1 /hpf (0-4); Urine WBC 8 /hpf (0-4); Urobilinogen,Urine Normal
[2024-05-09 20:32] LABS: Hematocrit 40.8 % (34.1-44.9); Hemoglobin 13.1 g/dL (11.2-15.7)
[2024-05-09] MEDS: LISINOPRIL 20 MG TABLET PO ONE (23:20)
[2024-05-09] MEDS: ONDANSETRON 4 MG/2 ML VIAL IV ONE (23:26)
[2024-05-10] MEDS: LORazepam 2 MG/ML VIAL IV ONE (01:01)
[2024-05-10 05:58] LABS: Basophils # (Auto) 0.03 K/mcL (0.00-0.30); Basophils % (Auto) 0.2 % (0.0-2.0); Eosinophils # (Auto) 0.01 K/mcL (0.00-0.70); Eosinophils % (Auto) 0.1 % (0.0-7.0); Hematocrit 41.1 % (34.1-44.9); Hemoglobin 13.2 g/dL (11.2-15.7); Lymphocytes % (Auto) 5.7 % (15.5-49.0); Mean Cell Volume 88.2 fL (80.0-100.0); Mean Corpuscular HGB Conc 32.1 g/dL (31.0-36.0); Mean Platelet Volume 11.1 fL (8.8-12.5); Monocytes # (Auto) 1.28 K/mcL (0.10-0.90); Monocytes % (Auto) 9.1 % (1.0-12.0); Neutrophils % (Auto) 84.8 % (38.0-78.0); Platelet Count 235 K/mcL (140-440); RBC 4.66 M/mcL (3.59-5.38); Red Cell Distribution Width 13.6 % (11.5-14.5)
[2024-05-10] MEDS: LISINOPRIL 10 MG TABLET PO ONE (07:47)
[2024-05-10] MEDS: PIPERACILLIN SODIUM/TAZOBACTAM 3.375 GM in DEXTROSE 5% IN WATER 100 ML IV SCH ×2 (12:08→16:11)
[2024-05-10] MEDS: PIPERACILLIN SODIUM/TAZOBACTAM 3.375 GM in DEXTROSE 5% IN WATER 50 ML IV SCH (12:15)
[2024-05-10] MEDS: ONDANSETRON 4 MG/2 ML VIAL IV ONE (13:04)
[2024-05-10] MEDS: ONDANSETRON 4 MG/2 ML VIAL ONE (13:04)
[2024-05-10] MEDS: hydrALAZINE 20 MG/ML VIAL IV ONE (13:35)
[2024-05-10 13:58] LABS: Basophils # (Auto) 0.03 K/mcL (0.00-0.30); Basophils % (Auto) 0.2 % (0.0-2.0); Eosinophils # (Auto) 0 K/mcL (0.00-0.70); Eosinophils % (Auto) 0 % (0.0-7.0); Hematocrit 41.2 % (34.1-44.9); Hemoglobin 13.4 g/dL (11.2-15.7); Lymphocytes # (Auto) 1.31 K/mcL (1.50-4.80); Lymphocytes % (Auto) 7.7 % (15.5-49.0); Mean Cell Volume 87.8 fL (80.0-100.0); Mean Corpuscular HGB Conc 32.5 g/dL (31.0-36.0); Mean Platelet Volume 11.7 fL (8.8-12.5); Monocytes # (Auto) 1.74 K/mcL (0.10-0.90); Monocytes % (Auto) 10.2 % (1.0-12.0); Neutrophils % (Auto) 81.7 % (38.0-78.0); Platelet Count 259 K/mcL (140-440); RBC 4.69 M/mcL (3.59-5.38); Red Cell Distribution Width 13.7 % (11.5-14.5); WBC 17.1 K/mcL (4.5-11.0)
[2024-05-10] MEDS: 0.9 % SODIUM CHLORIDE 1,000 ML IV ONE (14:37)
[2024-05-10] MEDS ORDERED: ENALAPRILAT 1.25 MG/ML VIAL IV PRN (15:32)
[2024-05-10] MEDS ORDERED: POTASSIUM CHLORIDE 40 MEQ in DEXTROSE 5% IN WATER 500 ML IV PRN (15:32)
[2024-05-10] MEDS ORDERED: MAGNESIUM SULFATE 2 GM/50 ML BAG IV PRN (15:32)
[2024-05-10] MEDS ORDERED: IPRATROPIUM/ALBUTEROL 3 ML AMPUL.NEB NEB PRN (15:32)
[2024-05-10] MEDS ORDERED: POLYETHYLENE GLYCOL 3350 17 GM PACKET PO PRN (15:32)
[2024-05-10] MEDS ORDERED: ACETAMINOPHEN 160 MG/5 ML ORAL.SOL PO PRN (15:32)
[2024-05-10] MEDS ORDERED: POTASSIUM CHLORIDE 20 MEQ TABLET PO PRN (15:32)
[2024-05-10] MEDS ORDERED: morphine 4 MG/ML VIAL IV PRN (15:32)
[2024-05-10 16:00] LABS: ALT/SGPT 15 U/L (<40); AST/SGOT 20 U/L (<32); Albumin 3.3 gm/dL (3.2-5.2); Albumin/Globulin Ratio 1.1 (1.0-2.3); Alkaline Phosphatase 73 U/L (39-117); Bilirubin,Direct 0.3 mg/dL (<0.3); Bilirubin,Total 0.6 mg/dL (0.1-1.0); Blood Urea Nitrogen 12 mg/dL (8-23); Calcium 8.5 mg/dL (8.6-10.4); Carbon Dioxide 22 mmol/L (22-30); Chloride 107 mmol/L (96-108); Globulin 3.1 gm/dL (2.2-3.7); Glomerular Filtration Rate 69; Glucose 136 mg/dL (70-105); Lactate Dehydrogenase 188 U/L (135-225); Phosphorous 2.4 mg/dL (2.5-4.5); Potassium 3.5 mmol/L (3.3-5.1); Sodium 140 mmol/L (133-145); Triglycerides 39 mg/dL (<150); Uric Acid 4.9 mg/dL (2.5-8.0)
[2024-05-10] MEDS: 0.9 % SODIUM CHLORIDE 1,000 ML IV SCH (16:03)
[2024-05-10 16:19] LABS: Band Neutrophils % 4 % (0-10); Lymphocytes % 7 % (15-49); Monocytes % (Manual) 7 % (1-12); Platelet Estimate NORMAL (Normal); RBC Morphology NORMAL (Normal); Segmented Neutrophils % 82 % (38-78)
[2024-05-10] MEDS: hydrALAZINE 20 MG/ML VIAL IV PRN (18:04)
[2024-05-10] MEDS: ACETAMINOPHEN 325 MG TABLET PO PRN (19:15)
[2024-05-10] MEDS: LISINOPRIL 20 MG TABLET PO SCH (20:23)
[2024-05-10] MEDS: BRIMONIDINE OPHTH DROPS 1 GTT BOTTLE 5ML OU SCH (21:05)
[2024-05-10] MEDS: NETARSUDIL LATANOPROST OP SCH (21:05)
[2024-05-10] MEDS: DORZOLAMIDE OP SCH (21:06)
[2024-05-10] MEDS: TIMOLOL OP SCH (21:06)
[2024-05-10] MEDS: 0.9 % SODIUM CHLORIDE 10 ML SYRINGE IV SCH (21:51)
[2024-05-11 06:16] LABS: ALT/SGPT 12 U/L (<40); AST/SGOT 23 U/L (<32); Albumin 3.2 gm/dL (3.2-5.2); Albumin/Globulin Ratio 1.1 (1.0-2.3); Alkaline Phosphatase 67 U/L (39-117); Bilirubin,Direct 0.3 mg/dL (<0.3); Bilirubin,Total 0.6 mg/dL (0.1-1.0); Blood Urea Nitrogen 9 mg/dL (8-23); Calcium 8.3 mg/dL (8.6-10.4); Carbon Dioxide 21 mmol/L (22-30); Chloride 107 mmol/L (96-108); Globulin 2.9 gm/dL (2.2-3.7); Glomerular Filtration Rate 69; Glucose 115 mg/dL (70-105); Lactate Dehydrogenase 215 U/L (135-225); Phosphorous 1.9 mg/dL (2.5-4.5); Potassium 3.2 mmol/L (3.3-5.1); Sodium 138 mmol/L (133-145); Triglycerides 42 mg/dL (<150)
[2024-05-11 06:19] LABS: Basophils # (Auto) 0.03 K/mcL (0.00-0.30); Basophils % (Auto) 0.2 % (0.0-2.0); Eosinophils # (Auto) 0.08 K/mcL (0.00-0.70); Eosinophils % (Auto) 0.5 % (0.0-7.0); Hematocrit 35.2 % (34.1-44.9); Hemoglobin 11.5 g/dL (11.2-15.7); Lymphocytes # (Auto) 1.15 K/mcL (1.50-4.80); Lymphocytes % (Auto) 7.6 % (15.5-49.0); Mean Cell Volume 88.9 fL (80.0-100.0); Mean Corpuscular HGB Conc 32.7 g/dL (31.0-36.0); Mean Platelet Volume 11.9 fL (8.8-12.5); Monocytes # (Auto) 1.47 K/mcL (0.10-0.90); Monocytes % (Auto) 9.7 % (1.0-12.0); Neutrophils % (Auto) 81.7 % (38.0-78.0); Platelet Count 187 K/mcL (140-440); RBC 3.96 M/mcL (3.59-5.38); Red Cell Distribution Width 13.9 % (11.5-14.5); WBC 15.1 K/mcL (4.5-11.0)
[2024-05-11] MEDS: ONDANSETRON 4 MG/2 ML VIAL IV PRN (07:10)
[2024-05-11] MEDS: POTASSIUM PHOSPHATE 40 MEQ in DEXTROSE 5% IN WATER 500 ML IV ONE (08:18)
[2024-05-11] MEDS: BUDESONIDE 3 MG CAP.XL.24H PO SCH (08:19)
[2024-05-11] MEDS: 0.9 % SODIUM CHLORIDE 1,000 ML IV SCH (12:29)
[2024-05-11] MEDS: HYDROcodone/APAP 5/325MG TABLET PO PRN (21:50)
[2024-05-12 06:01] LABS: Basophils # (Auto) 0.05 K/mcL (0.00-0.30); Basophils % (Auto) 0.4 % (0.0-2.0); Eosinophils # (Auto) 0.31 K/mcL (0.00-0.70); Eosinophils % (Auto) 2.5 % (0.0-7.0); Hematocrit 33.1 % (34.1-44.9); Hemoglobin 10.6 g/dL (11.2-15.7); Lymphocytes # (Auto) 0.83 K/mcL (1.50-4.80); Lymphocytes % (Auto) 6.8 % (15.5-49.0); Mean Cell Volume 90.2 fL (80.0-100.0); Mean Platelet Volume 11.7 fL (8.8-12.5); Monocytes # (Auto) 1.11 K/mcL (0.10-0.90); Monocytes % (Auto) 9.1 % (1.0-12.0); Neutrophils % (Auto) 80.9 % (38.0-78.0); Platelet Count 179 K/mcL (140-440); RBC 3.67 M/mcL (3.59-5.38); Red Cell Distribution Width 14.1 % (11.5-14.5); WBC 12.2 K/mcL (4.5-11.0)
[2024-05-12 06:44] LABS: ALT/SGPT 13 U/L (<40); AST/SGOT 23 U/L (<32); Albumin 2.9 gm/dL (3.2-5.2); Alkaline Phosphatase 53 U/L (39-117); Bilirubin,Direct < 0.2 mg/dL (0-0.3); Bilirubin,Total 0.3 mg/dL (0.1-1.0); Blood Urea Nitrogen 7 mg/dL (8-23); Calcium 8.3 mg/dL (8.6-10.4); Carbon Dioxide 23 mmol/L (22-30); Chloride 106 mmol/L (96-108); Globulin 2.8 gm/dL (2.2-3.7); Glomerular Filtration Rate 60; Glucose 128 mg/dL (70-105); Lactate Dehydrogenase 173 U/L (135-225); Phosphorous 1.9 mg/dL (2.5-4.5); Potassium 3.2 mmol/L (3.3-5.1); Sodium 137 mmol/L (133-145); Triglycerides 51 mg/dL (<150); Uric Acid 2.4 mg/dL (2.5-8.0)
[2024-05-12] MEDS: NEUTRA PHOS 1 PACKET PO SCH (08:35)
[2024-05-12] MEDS: PHOSPHORUS 250 MG TABLET PO SCH (08:35)
[2024-05-12] MEDS: METOCLOPRAMIDE 10 MG/2 ML VIAL IV PRN (20:02)
[2024-05-13 05:55] LABS: Basophils # (Auto) 0.05 K/mcL (0.00-0.30); Basophils % (Auto) 0.5 % (0.0-2.0); Eosinophils # (Auto) 0.36 K/mcL (0.00-0.70); Eosinophils % (Auto) 3.6 % (0.0-7.0); Hematocrit 33.8 % (34.1-44.9); Hemoglobin 10.7 g/dL (11.2-15.7); Lymphocytes # (Auto) 1.07 K/mcL (1.50-4.80); Lymphocytes % (Auto) 10.8 % (15.5-49.0); Mean Cell Volume 90.9 fL (80.0-100.0); Mean Corpuscular HGB Conc 31.7 g/dL (31.0-36.0); Mean Platelet Volume 11.6 fL (8.8-12.5); Monocytes # (Auto) 0.98 K/mcL (0.10-0.90); Monocytes % (Auto) 9.9 % (1.0-12.0); Neutrophils % (Auto) 74.9 % (38.0-78.0); Platelet Count 200 K/mcL (140-440); RBC 3.72 M/mcL (3.59-5.38); Red Cell Distribution Width 13.8 % (11.5-14.5); WBC 9.9 K/mcL (4.5-11.0)
[2024-05-13 06:31] LABS: ALT/SGPT 15 U/L (<40); AST/SGOT 23 U/L (<32); Alkaline Phosphatase 55 U/L (39-117); Bilirubin,Direct < 0.2 mg/dL (0-0.3); Bilirubin,Total 0.3 mg/dL (0.1-1.0); Blood Urea Nitrogen 6 mg/dL (8-23); Calcium 8.5 mg/dL (8.6-10.4); Carbon Dioxide 24 mmol/L (22-30); Chloride 104 mmol/L (96-108); Globulin 2.9 gm/dL (2.2-3.7); Glomerular Filtration Rate 69; Glucose 110 mg/dL (70-105); Lactate Dehydrogenase 188 U/L (135-225); Phosphorous 2.7 mg/dL (2.5-4.5); Sodium 137 mmol/L (133-145); Triglycerides 61 mg/dL (<150); Uric Acid 2.3 mg/dL (2.5-8.0)
[2024-05-13] MEDS: amLODIPine 5 MG TABLET PO SCH (08:23)
[2024-05-13] MEDS: POTASSIUM CHLORIDE 20 MEQ TABLET PO PRN (08:23)
[2024-05-13] MEDS: POTASSIUM CHLORIDE 20 MEQ TABLET PO SCH (17:27)
[2024-05-13] MEDS ORDERED: IOPAMIDOL 100 ML BOTTLE IV ONE (17:30)
[2024-05-14 06:23] LABS: ALT/SGPT 16 U/L (<40); AST/SGOT 23 U/L (<32); Albumin/Globulin Ratio 1.1 (1.0-2.3); Alkaline Phosphatase 51 U/L (39-117); Bilirubin,Direct < 0.2 mg/dL (0-0.3); Bilirubin,Total 0.2 mg/dL (0.1-1.0); Blood Urea Nitrogen 6 mg/dL (8-23); Calcium 8.7 mg/dL (8.6-10.4); Carbon Dioxide 24 mmol/L (22-30); Chloride 105 mmol/L (96-108); Globulin 2.8 gm/dL (2.2-3.7); Glomerular Filtration Rate 69; Glucose 109 mg/dL (70-105); Lactate Dehydrogenase 178 U/L (135-225); Potassium 3.6 mmol/L (3.3-5.1); Sodium 137 mmol/L (133-145); Triglycerides 66 mg/dL (<150); Uric Acid 2.2 mg/dL (2.5-8.0)
[2024-05-14] MEDS: PHOSPHORUS 250 MG TABLET PO SCH (08:20)
[2024-05-14] MEDS: NEUTRA PHOS 1 PACKET PO SCH (08:21)
[2024-05-15 13:17] VITALS: TEMP 98.2; O2SAT 95
== END 2024-05-15 14:06 | disposition home or self-care (01) | DRG 386 ==
LOC: ED 14:22 → ICU 05-10 15:33 → MEDSUR 05-12 23:03
PROVIDERS: ADMIT Internal Medicine; ATTEND Internal Medicine